=== PATIENT | female | born 1965 | race American Indian/Alaskan Native ===

== ENCOUNTER 2016-04-17 22:20 | Inpatient (IN) | payer OTHER ==
[2016-04-17] MEDS ORDERED: DUONEB 0.5 MG-3 MG/3 ML SOLN IH ONE ×2 (22:29→22:35)
[2016-04-18] MEDS ORDERED: TORADOL IV ONE (00:01)
[2016-04-18] MEDS ORDERED: ATROVENT IH ONE (00:02)
[2016-04-18] MEDS ORDERED: PROVENTIL IH ONE ×2 (00:02→01:52)
[2016-04-18] MEDS ORDERED: ZOFRAN IV ONE (00:02)
[2016-04-18 00:42] LABS: Basophils % (Auto) 0.6 % (0.0-1.8); Eosinophils % (Auto) 5.9 % (0.0-4.3); Hematocrit 44.4 % (30.3-42.9); Hemoglobin 14.5 gm/dl (10.1-14.3); Mean Corpuscular HGB Conc 33 % (30-34); Mean Corpuscular Hemoglobin 32 pg (28-32); Mean Corpuscular Volume 97 fl (79-97); Platelet Count 200 K/mm3 (140-440); Red Cell Distribution Width 13.9 % (13.2-15.2); White Blood Count 10.2 K/mm3 (4.5-11.0)
--- NOTE | 2016-04-18 00:44 | Emergency Department Report ---
ED Shortness of Breath HPI - General Chief Complaint: Adult Asthma Stated Complaint: SHORTNESS OF BREATH/CHEST PAIN Time Seen by Provider: 04/17/16 23:53 Source: patient Mode of arrival: Ambulatory Limitations: No Limitations - History of Present Illness Initial Comments: 50-year-old female with a past medical history asthma and hypertension presents to the hospital complains of coughing and wheezing episodes 1 week. Cough is nonproductive, left-sided sharp chest pain rated 6/10 in intensity with coughing episodes. Patient has no improvement with home nebs. She is intermittently compliant with her medication and ran out of her lisinopril and metformin 1 week ago. No reports of headache or blurred vision. No documented fever with patient states she's been feeling hot intermittently. She denies home oxygen use nurse reports that patient's room air saturation was in the high 80s. She did not receive a flu shot. - Related Data Previous Rx's Medication Instructions Recorded Last Taken Type traMADol [Ultram 50 MG tab] 50 mg PO Q6HR PRN #12 tablet 01/06/13 Unknown Rx predniSONE [Deltasone] 40 mg PO QDAY 4 Days 07/18/14 Unknown Rx ALBUTEROL NEB's [Proventil 0.083% 2.5 mg IH Q4HR #25 neb 02/20/16 Unknown Rx NEBS] Albuterol Sulfate [Ventolin HFA] 2 puff IH Q4H PRN #1 hfa.aer.ad 02/20/16 Unknown Rx Lisinopril [Zestril TAB] 20 mg PO QDAY #30 tablet 02/20/16 Unknown Rx Prednisone [predniSONE 10 mg 10 mg PO .TAPER #1 tab.ds.pk 02/20/16 Unknown Rx (6-Day Pack, 21 Tabs)] Allergies Allergy/AdvReac Type Severity Reaction Status Date / Time aspirin Allergy Unknown Verified 04/17/16 22:29 ED Review of Systems ROS: Stated complaint: SHORTNESS OF BREATH/CHEST PAIN Other details as noted in HPI Comment: All other systems reviewed and negative Other: Constitutional: As per HPI Eyes: No eye pain visual changes ENT: No ear pain or throat pain Neck: Denies pain Respiratory: As per HPI Cardiovascular: Denies palpitations, syncope GI: Denies abdominal pain, nausea, vomiting, diarrhea : Denies dysuria, urinary frequency, or urgency Musculoskeletal: Denies back pain, joint swelling Skin: Denies rash, lesions, erythema Neurologic: Denies headache, numbness, weakness Psychiatric: Denies suicidal ideation, hallucinations ED Past Medical Hx - Past Medical History Previous Medical History?: Yes Hx Hypertension: Yes Hx Diabetes: Yes Hx Asthma: Yes - Surgical History Past Surgical History?: Yes Additional Surgical History: "hernia" - Social History Smoking Status: Former Smoker Substance Use Type: Marijuana - Medications Home Medications: Home Medications Medication Instructions Recorded Confirmed Last Taken Type traMADol [Ultram 50 MG tab] 50 mg PO Q6HR PRN #12 tablet 01/06/13 Unknown Rx predniSONE [Deltasone] 40 mg PO QDAY 4 Days 07/18/14 Unknown Rx ALBUTEROL NEB's [Proventil 0.083% 2.5 mg IH Q4HR #25 neb 02/20/16 Unknown Rx NEBS] Albuterol Sulfate [Ventolin HFA] 2 puff IH Q4H PRN #1 hfa.aer.ad 02/20/16 Unknown Rx Lisinopril [Zestril TAB] 20 mg PO QDAY #30 tablet 02/20/16 Unknown Rx Prednisone [predniSONE 10 mg 10 mg PO .TAPER #1 tab.ds.pk 02/20/16 Unknown Rx (6-Day Pack, 21 Tabs)] ED Physical Exam - General Limitations: No Limitations - Other Other exam information: General: No limitations, patient is alert in no acute distress Head exam: Atraumatic, normocephalic Eyes exam: Normal appearance ENT: Moist mucous membrane Neck exam: Normal inspection, full range of motion, no meningismus nontender Respiratory exam: Expiratory wheezing, mild tachypnea Cardiovascular: Mild tachycardia regular rhythm Abdomen: Soft, nondistended, and nontender, with normal bowel sounds, no rebound, or guarding Extremity: Full range of motion normal inspection no deformity, no calf tenderness or edema Back: Normal Inspection, full range of motion, no tenderness Neurologic: Alert, oriented x3, cranial nerves intact, no motor or sensory deficit Psychiatric: normal affect, normal mood Skin: Warm, dry, intact ED Course Vital Signs 04/17/16 04/17/16 04/17/16 22:29 22:33 22:44 Temperature 97.9 F Pulse Rate 110 H Pulse Rate [ 101 H 98 H Posterior Bilateral Throughout] Respiratory 30 H Rate Respiratory 22 20 Rate [Posterior Bilateral Throughout] Blood Pressure 169/112 Blood Pressure [Left] O2 Sat by Pulse 88 96 Oximetry 04/18/16 04/18/16 04/18/16 00:04 00:18 00:30 Temperature Pulse Rate 90 85 Pulse Rate [ 91 H Posterior Bilateral Throughout] Respiratory 18 Rate Respiratory 18 Rate [Posterior Bilateral Throughout] Blood Pressure Blood Pressure 150/96 144/93 [Left] O2 Sat by Pulse 96 96 Oximetry 04/18/16 04/18/16 00:54 01:20 Temperature Pulse Rate Pulse Rate [ 86 Posterior Bilateral Throughout] Respiratory 14 Rate Respiratory 20 Rate [Posterior Bilateral Throughout] Blood Pressure Blood Pressure [Left] O2 Sat by Pulse 97 Oximetry - Reevaluation(s) Reevaluation #1: 04/18/16 01:46 Patient received a Duo neb prior to my evaluation with no improvement. She received additional nebs, Solu-Medrol with minimal improvement. Magnesium and azithromycin ordered. Patient will be admitted to the hospital. Blood pressure improved spontaneously without any intervention. Despite metformin noncompliance Accu-Chek is in normal range 04/18/16 01:47 04/18/16 01:48 ED Medical Decision Making - Lab Data Result diagrams: 04/18/16 00:17 04/18/16 00:17 Lab Results 04/18/16 04/18/16 04/18/16 Range/Units 00:15 00:17 00:17 WBC 10.2 (4.5-11.0) K/mm3 RBC 4.60 (3.65-5.03) M/mm3 Hgb 14.5 H (10.1-14.3) gm/dl Hct 44.4 H (30.3-42.9) % MCV 97 (79-97) fl MCH 32 (28-32) pg MCHC 33 (30-34) % RDW 13.9 (13.2-15.2) % Plt Count 200 (140-440) K/mm3 Lymph % (Auto) 28.2 (13.4-35.0) % [place] % (Auto) 8.6 H (0.0-7.3) % Eos % (Auto) 5.9 H (0.0-4.3) % Baso % (Auto) 0.6 (0.0-1.8) % Lymph # 2.9 (1.2-5.4) K/mm3 [place] # 0.9 H (0.0-0.8) K/mm3 Eos # 0.6 H (0.0-0.4) K/mm3 Baso # 0.1 (0.0-0.1) K/mm3 Seg Neutrophils % 56.7 (40.0-70.0) % Seg Neutrophils # 5.8 (1.8-7.7) K/mm3 Sodium 138 (137-145) mmol/L Potassium 4.4 (3.6-5.0) mmol/L Chloride 96.5 L (98-107) mmol/L Carbon Dioxide 26 (22-30) mmol/L Anion Gap 20 mmol/L BUN 12 (7-17) mg/dL Creatinine 0.7 (0.7-1.2) mg/dL Estimated GFR > 60 ml/min BUN/Creatinine Ratio 17.14 % Glucose 111 H (65-100) mg/dL POC Glucose 100 (70-105) Calcium 9.6 (8.4-10.2) mg/dL - EKG Data -: EKG Interpreted by Me (sinus 94 and nonspecific ) - EKG Data When compared to previous EKG there are: no significant change (compared to ) - Radiology Data Radiology results: image reviewed (chest x-ray: naf) - Medical Decision Making Plan to admit patient to the hospital for acute bronchitis, persistent wheezing , and mild hypoxia on room air - Differential Diagnosis pneumonia, bronchitis, viral syndrome, asthma, COPD Critical Care Time: No Critical care attestation.: If time is entered above; I have spent that time in minutes in the direct care of this critically ill patient, excluding procedure time. ED Disposition Clinical Impression: Acute bronchitis with asthma, Hypertension, Diabetes, Noncompliance with medication regimen Disposition: OP ADMITTED IP TO THIS HOSP Is pt being admited?: Yes Condition: Stable Instructions: Hypertension (ED), Diabetes Mellitus Type 2 in Adults (ED) Time of Disposition: 01:48 (Dr triana/hosp)
[2016-04-18 00:49] LABS: Anion Gap 20 mmol/L; BUN/Creatinine Ratio 17.14; Blood Urea Nitrogen 12 mg/dL (7-17); Calcium 9.6 mg/dL (8.4-10.2); Carbon Dioxide 26 mmol/L (22-30); Chloride 96.5 mmol/L (98-107); Glucose 111 mg/dL (65-100); Potassium 4.4 mmol/L (3.6-5.0); Sodium 138 mmol/L (137-145)
[2016-04-18] MEDS ORDERED: MAGNESIUM SULFATE 2GM/50ML 2 GM/50 ML BAG IV ONE (01:47)
[2016-04-18] MEDS ORDERED: ZITHROMAX 500 MG in NACL 0.9% 250ML 250 ML IV ONE (02:00)
--- NOTE | 2016-04-18 04:13 | History and Physical Report ---
History of Present Illness Date of examination: 04/18/16 Date of admission: 04/18/16 01:51 Chief complaint: Cough shortness of breath History of present illness: 50-year-old female with a long-standing history of asthma and chronic bronchitis presents this admission with a one-week history of nonproductive cough wheezing shortness of breath low-grade fever. Patient gives a history of mucus production from her naris and sinus pressure that has not yet resolved. At present patient denies any sick contacts denies any recent travel. Had attempted [id number] medications including sinus cold plus and Tylenol and did not respond to treatment. At present patient laying in bed in mild distress coughing. States that she has pleuritic chest pain from coughing and has had before. She denies any chest pain. Did have episode of gas pain which was under right breast does seem to resolve with passing gas. No new concerns at this time. Past History Past Medical History: denies: acute [place], atrial fib, anemia, arthritis, cancer, COPD, dialysis, ESRD Past Surgical History: No surgical history Social history: , lives with family, smoking, full code. denies: alcohol abuse, prescription drug abuse, IV drug use, AND/DNR-allow natural Family history: no significant family history Medications and Allergies Allergies Allergy/AdvReac Type Severity Reaction Status Date / Time aspirin Allergy Unknown Verified 04/17/16 22:29 Home Medications Medication Instructions Recorded Confirmed Last Taken Type Lisinopril [Zestril TAB] 20 mg PO QDAY #30 tablet 02/20/16 04/18/16 04/04/16 Rx Review of Systems Constitutional: fever, fatigue, weakness, no weight loss, no weight gain, no chills, no sweats, no night sweats, no anorexia, no malaise, no lethargy, no chronic headaches, no poor appetite, no daytime sleepiness Ears, nose, mouth and throat: nasal congestion, nasal discharge, sinus pressure , no ear pain, no tinnitis, no nose pain, no sinus pain, no epistaxis, no dental pain, no mouth pain, no hoarseness, no sore throat, no swelling in mouth , no swelling in throat, no voice changes, no headache, no pain front of neck, no neck fullness/pressure Breasts: deferred Cardiovascular: no chest pain, no palpitations, no rapid/irregular heart beat, no edema, no lightheadedness, no shortness of breath, no dyspnea on exertion, no claudication, no leg edema, no decreased exercise tolerance Respiratory: cough, cough with sputum, shortness of breath, dyspnea on exertion , congestion, wheezing, pleurisy, no hemoptysis, no pain, no pain on inspiration , no snoring, no sleep apnea, no respiratory infections, no home oxygen Gastrointestinal: no nausea, no vomiting, no constipation, no hematemesis, no melena, no hematochezia, no loss of appetite, no early satiety, no heartburn, no indigestion, no dyspepsia/bloating, no early satiety Genitourinary Female: no dyspareunia, no pelvic pain, no menorrhagia, no dysuria Menstruation: no currently menstrual Musculoskeletal: no shooting arm pain, no low back pain, no shooting leg pain, no leg numbness/tingling, no hot joints, no morning stiffness, no myalgias, no fractures, no loss of height, no arthritis Integumentary: no rash, no pruritis, no wounds, no jaundice, no growths, no lesions, no depigmentation, no striae, no hirsutism, no foot/leg ulcers Neurological: no head injury, no transient paralysis, no weakness, no parathesias, no tic, no motor disturbance, no sensory deficit, no double vision Psychiatric: no change in sleep habits, no sleep disturbances, no insomnia, no hypersomnia, no change in appetite, no change in libido, no suicidal ideation, no disorientation, no hallucinations, no depression, no anhedonia, no confusion , no irritability, no mood swings Endocrine: no cold intolerance, no heat intolerance, no polyphagia, no nocturia , no increase in ring/shoe/hat size, no proptosis Hematologic/Lymphatic: no easy bruising, no easy bleeding, no thrombophilia, no other Allergic/Immunologic: no allergic rhinitis, no persistent infections, no gluten intolerance, no seasonal allergies Exam - Constitutional Vitals: Temp Pulse Resp BP Pulse Ox 97.9 F 96 H 17 120/78 92 04/17/16 22:29 04/18/16 03:00 04/18/16 03:00 04/18/16 03:00 04/18/16 03:00 General appearance: Present: other - EENT Eyes: Present: PERRL (moderate distress), EOM intact ENT: hearing intact, clear oral mucosa - Neck Neck: Present: supple, normal ROM - Respiratory Respiratory: bilateral: diminished, rhonchi, wheezing - Cardiovascular Rhythm: regular Heart Sounds: Present: S1 & S2, gallop. Absent: systolic murmur, diastolic murmur - Extremities Extremities: pulses symmetrical, No edema, normal temperature, normal color, Full ROM Peripheral Pulses: within normal limits - Abdominal General gastrointestinal: Present: soft, non-tender, non-distended, normal bowel sounds - Integumentary Integumentary: Present: clear, warm, dry - Musculoskeletal Musculoskeletal: gait normal, strength equal bilaterally - Psychiatric Psychiatric: appropriate mood/affect, intact judgment & insight - Neurologic Neurologic: CNII-XII intact, moves all extremities Results - Labs CBC & Chem 7: 04/18/16 00:17 04/18/16 00:17 Labs: Laboratory Last Values WBC 10.2 K/mm3 (4.5-11.0) 04/18/16 00:17 RBC 4.60 M/mm3 (3.65-5.03) 04/18/16 00:17 Hgb 14.5 gm/dl (10.1-14.3) H 04/18/16 00:17 Hct 44.4 % (30.3-42.9) H 04/18/16 00:17 MCV 97 fl (79-97) 04/18/16 00:17 MCH 32 pg (28-32) 04/18/16 00:17 MCHC 33 % (30-34) 04/18/16 00:17 RDW 13.9 % (13.2-15.2) 04/18/16 00:17 Plt Count 200 K/mm3 (140-440) 04/18/16 00:17 Lymph % (Auto) 28.2 % (13.4-35.0) 04/18/16 00:17 [place] % (Auto) 8.6 % (0.0-7.3) H 04/18/16 00:17 Eos % (Auto) 5.9 % (0.0-4.3) H 04/18/16 00:17 Baso % (Auto) 0.6 % (0.0-1.8) 04/18/16 00:17 Lymph # 2.9 K/mm3 (1.2-5.4) 04/18/16 00:17 [place] # 0.9 K/mm3 (0.0-0.8) H 04/18/16 00:17 Eos # 0.6 K/mm3 (0.0-0.4) H 04/18/16 00:17 Baso # 0.1 K/mm3 (0.0-0.1) 04/18/16 00:17 Seg Neutrophils % 56.7 % (40.0-70.0) 04/18/16 00:17 Seg Neutrophils # 5.8 K/mm3 (1.8-7.7) 04/18/16 00:17 Sodium 138 mmol/L (137-145) 04/18/16 00:17 Potassium 4.4 mmol/L (3.6-5.0) 04/18/16 00:17 Chloride 96.5 mmol/L (98-107) L 04/18/16 00:17 Carbon Dioxide 26 mmol/L (22-30) 04/18/16 00:17 Anion Gap 20 mmol/L 04/18/16 00:17 BUN 12 mg/dL (7-17) 04/18/16 00:17 Creatinine 0.7 mg/dL (0.7-1.2) 04/18/16 00:17 Estimated GFR > 60 ml/min 04/18/16 00:17 BUN/Creatinine Ratio 17.14 % 04/18/16 00:17 Glucose 111 mg/dL (65-100) H 04/18/16 00:17 POC Glucose 100 (70-105) 04/18/16 00:15 Calcium 9.6 mg/dL (8.4-10.2) 04/18/16 00:17 - Imaging and Cardiology EKG: image reviewed Chest x-ray: image reviewed Assessment and Plan Advance Directives: Yes VTE prophylaxis?: Chemical Plan of care discussed with patient/family: Yes - Patient Problems (1) Acute bronchitis with asthma Current Visit: Yes Status: Acute Plan to address problem: She would acute bronchitis and asthma. At present we'll start patient on azithromycin IV. Blood culture data has been obtained. Would titrate medicines accordingly. We'll also provide DuoNeb's and oxygen and supportive care. We'll give low-dose Solu-Medrol at this time. Patient has diabetes. The benefits of Solu-Medrol out weighted risk of hypoglycemia at this particular time. (2) Diabetes Current Visit: Yes Status: Acute Qualifiers: Diabetes mellitus type: type 2 Diabetes mellitus complication status: D Diabetes mellitus complication detail: D Diabetic retinopathy severity: D Proliferative retinopathy type: P Diabetes mellitus macular edema: D Diabetes mellitus custodial insulin use: D Laterality: L Chronic kidney disease stage: C Plan to address problem: Patient at present does not have history of diabetes that she status. Patient is only on lisinopril at home but will follow with A1c and Accu-Chek's see if we need to treat it. This was only in her past history from the ER patient denies at this time. (3) Hypertension Current Visit: Yes Status: Acute Qualifiers: Hypertension type: H Plan to address problem: Hypertension treated with lisinopril we'll continue current lisinopril. Blood pressure seems to be stable well-controlled. (4) Noncompliance with medication regimen Current Visit: Yes Status: Acute Plan to address problem: Patient is been educated on the compliance of medication especially with asthma medication.
[2016-04-18] MEDS ORDERED: MORPHINE IV PRN (04:18)
[2016-04-18] MEDS ORDERED: DULCOLAX PR PRN (04:18)
[2016-04-18] MEDS ORDERED: PERCOCET 5/325 PO PRN (04:18)
[2016-04-18] MEDS ORDERED: MILK OF MAGNESIA PO PRN (04:18)
[2016-04-18] MEDS ORDERED: AMBIEN PO PRN (04:18)
[2016-04-18] MEDS ORDERED: TYLENOL PO PRN (04:18)
[2016-04-18] MEDS ORDERED: ZOFRAN IV PRN (04:18)
[2016-04-18] MEDS: NACL 0.9% 1000 ML 1,000 ML IV SCH (05:13)
--- NOTE | 2016-04-18 07:18 | XRay Report ---
CHEST 2 VIEWS INDICATION: Chest pain, shortness of breath. COMPARISON: 07/18/2014. FINDINGS: PA and lateral chest radiographs demonstrate normal cardiomediastinal silhouette. Slight fluid or thickening along the fissures. Minimal left lower lung scarring not excluded. Otherwise clear lungs. Intact bones. CONCLUSION: No acute disease in the chest. Thank you for the opportunity to participate in this patient's care.
--- NOTE | 2016-04-18 08:44 | Admit Criteria Form ---
Admission Criteria Documentation: ASTHMA Clinical Indications for Admission to Inpatient Care (Place 'X' for any and all applicable criteria): Admission is indicated for ANY ONE of the following (1)(2)(3)(4)(5): [ ]I. Absent or markedly diminished breath sounds (silent chest) [ ]II. Oxygen saturation < 92% [ ]III. PaCO2 = / > 42 mm Hg (5.6 kPa) [ ]IV. Peak expiratory flow rate < 40% of predicted or personal best after treatment. [ ]V. Peak expiratory flow rate < 33% of predicted or personal before after treatment [ ]. Change in mental status [ ]VII. Ventilatory support required [ ]VIII. PaO2 < 60 mm Hg (8.0 kPa) [ ]IX. Cyanosis [ ]X. Cardiac dysrhythmia (e.g., bradycardia) [ ]XI. Hemodynamic instability [ ]XII. Radiographic evidence of complication requiring inpatient treatment (e.g., pneumonia, pneumothorax) [X ]XIII. Inpatient admission required rather than observation care (also use Asthma: Observation Care guideline as appropriate) because of ANY ONE of the following: [X ]a) Respiratory finding that is severe or persistent (eg, dyspnea, tachypnea, accessory muscle use) [ ]b) Airflow measurements less than 60% of predicted or personal best that persist (e.g., over 24 hours) or worsen despite treatments [ ]c) Supplemental oxygen or respiratory treatments for over 24 hours that are performable only in acute inpatient setting []d) Other condition, treatment or monitoring requiring inpatient admission. Extended stay beyond goal length of stay may be needed for (26)(27)(28): [ ]a) Severe respiratory failure (23) (29) (30) [ ]b) Secondary causes and complications (25) [ ]c) Status asthmaticus [ ]d) Chronic obstructive asthma [ ]e) Older patients (29) [ ]f) Slow resolution [ ]g) Clinically significant exacerbation of comorbidities (eg, remedios. heart failure, atrial fibrillation) The original [employer] content created by [employer] has been revised. The portions of the content which have been revised are identified through the use of italic text or in bold, and [employer] has neither reviewed nor approved the modified material. All other unmodified content is copyright [employer] Please see references footnoted in the original [facility] edition 2016 Admission Criteria Met: Yes
[2016-04-18] MEDS: LOVENOX SUB-Q SCH (09:41)
[2016-04-18] MEDS: PEPCID IV SCH ×2 (09:41→21:26)
[2016-04-18] MEDS: BROVANA NEBU IH SCH ×2 (13:01→20:10)
[2016-04-18] MEDS: PULMICORT IH SCH ×2 (13:01→20:08)
[2016-04-18] MEDS: DUONEB 0.5 MG-3 MG/3 ML SOLN IH SCH ×2 (14:15→20:08)
[2016-04-18] MEDS: ZESTRIL PO SCH (14:16)
--- NOTE | 2016-04-18 14:49 | Event Note ---
Date: 04/18/16 Patient seen and examined this morning still with wheezing bilateral expiratory greater than inspiratory. Still short of breath with mild ambulation. Continue current therapy wean oxygen as tolerated. X-ray reviewed and negative. Despite discharge in a.m. plan of care discussed with them.
[2016-04-18] MEDS: ZITHROMAX 500 MG in NACL 0.9% 250ML 250 ML IV SCH (18:19)
[2016-04-19] MEDS: DUONEB 0.5 MG-3 MG/3 ML SOLN IH SCH ×4 (01:55→20:23)
[2016-04-19 04:00] LABS: Anion Gap 18 mmol/L; Blood Urea Nitrogen 18 mg/dL (7-17); Calcium 8.6 mg/dL (8.4-10.2); Carbon Dioxide 24 mmol/L (22-30); Chloride 105.3 mmol/L (98-107); Glucose 125 mg/dL (65-100); Potassium 4.8 mmol/L (3.6-5.0); Sodium 142 mmol/L (137-145)
[2016-04-19] MEDS: NACL 0.9% 1000 ML 1,000 ML IV SCH (05:57)
[2016-04-19] MEDS: PULMICORT IH SCH ×2 (08:04→20:23)
[2016-04-19] MEDS: BROVANA NEBU IH SCH ×2 (08:04→20:31)
[2016-04-19] MEDS: LOVENOX SUB-Q SCH (11:07)
[2016-04-19] MEDS: PEPCID IV SCH (11:07)
[2016-04-19] MEDS: ZESTRIL PO SCH (11:08)
[2016-04-19] MEDS: PEPCID PO SCH ×2 (11:56→21:03)
[2016-04-19] MEDS: ZITHROMAX 500 MG in NACL 0.9% 250ML 250 ML IV SCH (14:09)
--- NOTE | 2016-04-19 16:08 | Progress Note ---
Assessment and Plan Assessment and plan: (1) Acute bronchitis with asthma Current Visit: Yes Status: Acute Plan to address problem: She would acute bronchitis and asthma. At present we'll start patient on azithromycin IV. Blood culture data has been obtained. Would titrate medicines accordingly. We'll also provide DuoNeb's and oxygen and supportive care. We'll give low-dose Solu-Medrol at this time. Patient has diabetes. The benefits of Solu-Medrol out weighted risk of hypoglycemia at this particular time. (2) Diabetes Current Visit: Yes Status: Acute Qualifiers: Diabetes mellitus type: type 2 Diabetes mellitus complication status: D Diabetes mellitus complication detail: D Diabetic retinopathy severity: D Proliferative retinopathy type: P Diabetes mellitus macular edema: D Diabetes mellitus meterman insulin use: D Laterality: L Chronic kidney disease stage: C Plan to address problem: Patient at present does not have history of diabetes that she status. Patient is only on lisinopril at home but will follow with A1c and Accu-Chek's see if we need to treat it. This was only in her past history from the ER patient denies at this time. (3) Hypertension Current Visit: Yes Status: Acute Qualifiers: Hypertension type: H Plan to address problem: Hypertension treated with lisinopril we'll continue current lisinopril. Blood pressure seems to be stable well-controlled. (4) Noncompliance with medication regimen Current Visit: Yes Status: Acute Plan to address problem: Patient is been educated on the compliance of medication especially with asthma medication. Hospitalist Physical - Constitutional Vitals: Temp Pulse Resp BP Pulse Ox 98.3 F 85 18 146/88 97 04/19/16 15:55 04/19/16 15:55 04/19/16 15:55 04/19/16 15:55 04/19/16 15:55 General appearance: Present: other Results - Labs CBC & Chem 7: 04/18/16 00:17 04/19/16 03:01 Labs: Laboratory Last Values WBC 10.2 K/mm3 (4.5-11.0) 04/18/16 00:17 RBC 4.60 M/mm3 (3.65-5.03) 04/18/16 00:17 Hgb 14.5 gm/dl (10.1-14.3) H 04/18/16 00:17 Hct 44.4 % (30.3-42.9) H 04/18/16 00:17 MCV 97 fl (79-97) 04/18/16 00:17 MCH 32 pg (28-32) 04/18/16 00:17 MCHC 33 % (30-34) 04/18/16 00:17 RDW 13.9 % (13.2-15.2) 04/18/16 00:17 Plt Count 200 K/mm3 (140-440) 04/18/16 00:17 Lymph % (Auto) 28.2 % (13.4-35.0) 04/18/16 00:17 [place] % (Auto) 8.6 % (0.0-7.3) H 04/18/16 00:17 Eos % (Auto) 5.9 % (0.0-4.3) H 04/18/16 00:17 Baso % (Auto) 0.6 % (0.0-1.8) 04/18/16 00:17 Lymph # 2.9 K/mm3 (1.2-5.4) 04/18/16 00:17 [place] # 0.9 K/mm3 (0.0-0.8) H 04/18/16 00:17 Eos # 0.6 K/mm3 (0.0-0.4) H 04/18/16 00:17 Baso # 0.1 K/mm3 (0.0-0.1) 04/18/16 00:17 Seg Neutrophils % 56.7 % (40.0-70.0) 04/18/16 00:17 Seg Neutrophils # 5.8 K/mm3 (1.8-7.7) 04/18/16 00:17 Sodium 142 mmol/L (137-145) 04/19/16 03:01 Potassium 4.8 mmol/L (3.6-5.0) 04/19/16 03:01 Chloride 105.3 mmol/L (98-107) 04/19/16 03:01 Carbon Dioxide 24 mmol/L (22-30) 04/19/16 03:01 Anion Gap 18 mmol/L 04/19/16 03:01 BUN 18 mg/dL (7-17) H 04/19/16 03:01 Creatinine 0.8 mg/dL (0.7-1.2) 04/19/16 03:01 Estimated GFR > 60 ml/min 04/19/16 03:01 BUN/Creatinine Ratio 22.50 % 04/19/16 03:01 Glucose 125 mg/dL (65-100) H 04/19/16 03:01 POC Glucose 127 (70-105) H 04/19/16 07:42 Calcium 8.6 mg/dL (8.4-10.2) 04/19/16 03:01
[2016-04-19] MEDS: APRESOLINE IV PRN (21:03)
[2016-04-20] MEDS: DUONEB 0.5 MG-3 MG/3 ML SOLN IH SCH ×4 (02:49→21:09)
[2016-04-20] MEDS: NACL 0.9% 1000 ML 1,000 ML IV SCH ×2 (06:25→22:13)
[2016-04-20] MEDS: PULMICORT IH SCH ×2 (07:40→21:10)
[2016-04-20] MEDS: BROVANA NEBU IH SCH ×2 (07:40→21:15)
[2016-04-20] MEDS: ZITHROMAX 500 MG in NACL 0.9% 250ML 250 ML IV SCH (10:11)
[2016-04-20] MEDS: PEPCID PO SCH ×2 (10:11→22:08)
[2016-04-20] MEDS: ZESTRIL PO SCH (10:11)
[2016-04-20] MEDS: LOVENOX SUB-Q SCH (10:11)
[2016-04-20] MEDS: APRESOLINE IV PRN (12:17)
[2016-04-20] MEDS: NORVASC PO SCH (14:38)
[2016-04-20] MEDS: HCTZ PO SCH (14:38)
[2016-04-20] MEDS ORDERED: ZESTRIL PO SCH (22:00)
[2016-04-21] MEDS: DUONEB 0.5 MG-3 MG/3 ML SOLN IH SCH ×2 (02:53→09:24)
[2016-04-21] MEDS: BROVANA NEBU IH SCH (09:23)
[2016-04-21] MEDS: PULMICORT IH SCH (09:23)
[2016-04-21] MEDS: LOVENOX SUB-Q SCH (10:33)
[2016-04-21] MEDS: ZITHROMAX 500 MG in NACL 0.9% 250ML 250 ML IV SCH (10:40)
[2016-04-21] MEDS: NACL 0.9% 1000 ML 1,000 ML IV SCH (10:40)
[2016-04-21] MEDS: ZESTRIL PO SCH (10:41)
[2016-04-21] MEDS: NORVASC PO SCH (10:41)
[2016-04-21] MEDS: HCTZ PO SCH (10:41)
[2016-04-21] MEDS: PEPCID PO SCH (10:41)
--- NOTE | 2016-04-21 10:46 | Progress Note ---
Hospitalist Physical - Constitutional Vitals: Temp Pulse Resp BP Pulse Ox 97.7 F 75 20 164/88 99 04/21/16 08:34 04/21/16 10:41 04/21/16 09:54 04/21/16 10:41 04/21/16 09:20 General appearance: Present: other Results - Labs CBC & Chem 7: 04/18/16 00:17 04/19/16 03:01 Labs: Laboratory Last Values WBC 10.2 K/mm3 (4.5-11.0) 04/18/16 00:17 RBC 4.60 M/mm3 (3.65-5.03) 04/18/16 00:17 Hgb 14.5 gm/dl (10.1-14.3) H 04/18/16 00:17 Hct 44.4 % (30.3-42.9) H 04/18/16 00:17 MCV 97 fl (79-97) 04/18/16 00:17 MCH 32 pg (28-32) 04/18/16 00:17 MCHC 33 % (30-34) 04/18/16 00:17 RDW 13.9 % (13.2-15.2) 04/18/16 00:17 Plt Count 200 K/mm3 (140-440) 04/18/16 00:17 Lymph % (Auto) 28.2 % (13.4-35.0) 04/18/16 00:17 [place] % (Auto) 8.6 % (0.0-7.3) H 04/18/16 00:17 Eos % (Auto) 5.9 % (0.0-4.3) H 04/18/16 00:17 Baso % (Auto) 0.6 % (0.0-1.8) 04/18/16 00:17 Lymph # 2.9 K/mm3 (1.2-5.4) 04/18/16 00:17 [place] # 0.9 K/mm3 (0.0-0.8) H 04/18/16 00:17 Eos # 0.6 K/mm3 (0.0-0.4) H 04/18/16 00:17 Baso # 0.1 K/mm3 (0.0-0.1) 04/18/16 00:17 Seg Neutrophils % 56.7 % (40.0-70.0) 04/18/16 00:17 Seg Neutrophils # 5.8 K/mm3 (1.8-7.7) 04/18/16 00:17 Sodium 142 mmol/L (137-145) 04/19/16 03:01 Potassium 4.8 mmol/L (3.6-5.0) 04/19/16 03:01 Chloride 105.3 mmol/L (98-107) 04/19/16 03:01 Carbon Dioxide 24 mmol/L (22-30) 04/19/16 03:01 Anion Gap 18 mmol/L 04/19/16 03:01 BUN 18 mg/dL (7-17) H 04/19/16 03:01 Creatinine 0.8 mg/dL (0.7-1.2) 04/19/16 03:01 Estimated GFR > 60 ml/min 04/19/16 03:01 BUN/Creatinine Ratio 22.50 % 04/19/16 03:01 Glucose 125 mg/dL (65-100) H 04/19/16 03:01 POC Glucose 156 (70-105) H 04/21/16 08:10 Calcium 8.6 mg/dL (8.4-10.2) 04/19/16 03:01
--- NOTE | 2016-04-21 10:57 | Discharge Summary ---
Providers - Providers Date of Admission: 04/18/16 01:51 Attending physician: NAVARRO LEW MD Primary care physician: BULLION WEIGHER Hospitalization Condition: Stable Disposition: DISCHARGED TO HOME OR SELFCARE Time spent for discharge: 35 minutes Core Measure Documentation - Palliative Care Palliative Care/ Comfort Measures: Not Applicable - Core Measures Any of the following diagnoses?: none Exam - Constitutional Vitals: Temp Pulse Resp BP Pulse Ox 97.7 F 75 20 164/88 99 04/21/16 08:34 04/21/16 10:41 04/21/16 09:54 04/21/16 10:41 04/21/16 09:20 General appearance: Present: no acute distress, well-nourished - EENT Eyes: Present: PERRL ENT: hearing intact, clear oral mucosa - Neck Neck: Present: supple, normal ROM - Respiratory Respiratory effort: normal Respiratory: bilateral: CTA - Cardiovascular Heart Sounds: Present: S1 & S2. Absent: rub, click - Extremities Extremities: pulses symmetrical, No edema Peripheral Pulses: within normal limits - Abdominal General gastrointestinal: Present: soft, non-tender, non-distended, normal bowel sounds Female genitourinary: Present: normal - Integumentary Integumentary: Present: clear, warm, dry - Musculoskeletal Musculoskeletal: gait normal, strength equal bilaterally - Psychiatric Psychiatric: appropriate mood/affect, intact judgment & insight - Neurologic Neurologic: CNII-XII intact, moves all extremities Plan Prescriptions: ALBUTEROL Inhaler [ProAir HFA Inhaler] 2 puff IH QID PRN #1 inhalation PRN Reason: Shortness Of Breath amLODIPine [Norvasc] 10 mg PO QDAY #30 tablet Azithromycin [Zithromax INJ] 500 mg IV Q24HR #3 vial Hydrochlorothiazide [HCTZ] 25 mg PO QDAY #30 tablet Lisinopril [Zestril TAB] 40 mg PO QDAY #30 tablet oxyCODONE /ACETAMINOPHEN [Percocet 5/325 mg] 1 tab PO Q6H PRN #30 tablet PRN Reason: Pain, Moderate (4-6) Prednisone [predniSONE 5 mg (6-Day Pack, 21 Tabs)] 5 mg PO .TAPER #1 tab.ds.pk Tiotropium [place] [Spiriva Respimat] 4 gm IH DAILY #1 mist.inhal
[2016-04-21 16:47] VITALS: BP 116/77
== END 2016-04-21 13:18 | disposition home or self-care (01) | DRG 203 ==
LOC: ED 22:20 → 4A 04-18 01:51
PROVIDERS: ADMIT Internal Medicine; ATTEND Internal Medicine
DX: J20.9 Acute bronchitis, unspecified (principal); E11.9 Type 2 diabetes mellitus without complications; I10 Essential (primary) hypertension; J42 Unspecified chronic bronchitis; F17.210 Nicotine dependence, cigarettes, uncomplicated; J45.909 Unspecified asthma, uncomplicated; Z88.8 Allergy status to other drugs, medicaments and biological substances; Z91.14 Patient's other noncompliance with medication regimen
CPT/HCPCS: 36415; 71020; 80048; 82962; 85025; 93005; 93010; 94640; 94760; 96365; 96368; 96375; J0360; J0456; J1650; J1885; J2405; J2920; J2930; J3475; J7030; J7050

== ENCOUNTER 2016-05-13 21:12 | Inpatient (IN) | payer SELFPAY ==
[2016-05-13] MEDS ORDERED: NARCAN 2 MG/2 ML ONE (21:14)
[2016-05-13] MEDS ORDERED: PROVENTIL IH ONE (21:30)
[2016-05-13] MEDS ORDERED: ATROVENT IH ONE (21:30)
[2016-05-13] MEDS ORDERED: AMIDATE IV ONE (21:30)
[2016-05-13] MEDS ORDERED: QUELICIN IV ONE (21:30)
[2016-05-13] MEDS ORDERED: NARCAN 2 MG/2 ML IV ONE (21:30)
--- NOTE | 2016-05-13 21:30 | Emergency Department Report ---
ED Shortness of Breath HPI - General Chief Complaint: Dyspnea/Respdistress Stated Complaint: RESPIRATORY DISTRESS Time Seen by Provider: 05/13/16 21:27 Source: EMS Mode of arrival: Stretcher Limitations: Altered Mental Status - History of Present Illness Initial Comments: 50 yo female the past medical history of COPD, hypertension, and non-insulin- dependent diabetes presents to the hospital with shortness of breath and altered mental status. EMS reports that at the scene states the patient was short of breath and has used multiple albuterol inhaler treatments at the scene. Patient was unresponsive upon their arrival requiring bag valve mask ventilations a nasal trumpet in route. Over the history present illness available at this time. Accu-Chek 132. - Related Data Previous Rx's Medication Instructions Recorded Last Taken Type ALBUTEROL Inhaler [ProAir HFA 2 puff IH QID PRN #1 inhalation 04/21/16 Unknown Rx Inhaler] Azithromycin [Zithromax TAB] 250 mg PO QDAY #3 tablet 04/21/16 Unknown Rx Hydrochlorothiazide [HCTZ] 25 mg PO QDAY #30 tablet 04/21/16 Unknown Rx Lisinopril [Zestril TAB] 40 mg PO QDAY #30 tablet 04/21/16 Unknown Rx Prednisone [predniSONE 5 mg (6-Day 5 mg PO .TAPER #1 tab.ds.pk 04/21/16 Unknown Rx Pack, 21 Tabs)] Tiotropium [place] [Spiriva 4 gm IH DAILY #1 mist.inhal 04/21/16 Unknown Rx Respimat] amLODIPine [Norvasc] 10 mg PO QDAY #30 tablet 04/21/16 Unknown Rx oxyCODONE /ACETAMINOPHEN [Percocet 1 tab PO Q6H PRN #30 tablet 04/21/16 Unknown Rx 5/325 mg] Allergies Allergy/AdvReac Type Severity Reaction Status Date / Time aspirin Allergy Unknown Verified 04/17/16 22:29 ED Review of Systems ROS: Stated complaint: RESPIRATORY DISTRESS Other details as noted in HPI Comment: Unobtainable due to pts medical conditions (unresponsive) ED Past Medical Hx - Past Medical History Previous Medical History?: Yes Hx Hypertension: Yes Hx Congestive Heart Failure: No Hx Diabetes: Yes Hx Asthma: Yes Hx COPD: No - Surgical History Past Surgical History?: Yes Additional Surgical History: "hernia" - Social History Smoking Status: Former Smoker - Medications Home Medications: Home Medications Medication Instructions Recorded Confirmed Last Taken Type ALBUTEROL Inhaler [ProAir HFA 2 puff IH QID PRN #1 inhalation 04/21/16 Unknown Rx Inhaler] Azithromycin [Zithromax TAB] 250 mg PO QDAY #3 tablet 04/21/16 Unknown Rx Hydrochlorothiazide [HCTZ] 25 mg PO QDAY #30 tablet 04/21/16 Unknown Rx Lisinopril [Zestril TAB] 40 mg PO QDAY #30 tablet 04/21/16 Unknown Rx Prednisone [predniSONE 5 mg (6-Day 5 mg PO .TAPER #1 tab.ds.pk 04/21/16 Unknown Rx Pack, 21 Tabs)] Tiotropium [place] [Spiriva 4 gm IH DAILY #1 mist.inhal 04/21/16 Unknown Rx Respimat] amLODIPine [Norvasc] 10 mg PO QDAY #30 tablet 04/21/16 Unknown Rx oxyCODONE /ACETAMINOPHEN [Percocet 1 tab PO Q6H PRN #30 tablet 04/21/16 Unknown Rx 5/325 mg] ED Physical Exam - General Limitations: Altered Mental Status - Other Other exam information: General: No limitations, patient is alert in no acute distress Head exam: Atraumatic, normocephalic Eyes exam: Normal appearance, pupils equal reactive to light ENT: Moist mucous membrane, normal oropharynx Neck exam: Normal inspection, full range of motion Respiratory exam: Bilateral expiratory wheezing with decreased respiration rate Cardiovascular: Normal rate and rhythm, normal heart sounds Abdomen: Soft, nondistended, and nontender, with normal bowel sounds, no rebound, or guarding Extremity: Full range of motion normal inspection no deformity Back: Normal Inspection, full range of motion, no tenderness Neurologic: Unresponsive, minimum spontaneous movement, will not open her eyes or follow commands Psychiatric: normal affect, normal mood Skin: Warm, dry, intact ED Course Vital Signs 05/13/16 05/13/16 05/13/16 21:15 21:29 21:30 Pulse Rate 98 H 90 91 H Pulse Rate [ Anterior Bilateral Throughout] Respiratory Rate Respiratory Rate [Anterior Bilateral Throughout] Blood Pressure Blood Pressure 177/104 192/127 [Right] O2 Sat by Pulse 100 100 Oximetry 05/13/16 05/13/16 05/13/16 21:35 21:40 21:45 Pulse Rate 93 H 102 H Pulse Rate [ Anterior Bilateral Throughout] Respiratory 27 H Rate Respiratory Rate [Anterior Bilateral Throughout] Blood Pressure 128/86 Blood Pressure 163/77 [Right] O2 Sat by Pulse 100 100 Oximetry 05/13/16 05/13/16 05/13/16 22:08 22:16 22:23 Pulse Rate 100 H Pulse Rate [ 104 H Anterior Bilateral Throughout] Respiratory 34 H 26 H Rate Respiratory 27 H Rate [Anterior Bilateral Throughout] Blood Pressure 128/86 Blood Pressure [Right] O2 Sat by Pulse 96 Oximetry 05/13/16 05/13/16 05/13/16 22:30 22:46 23:00 Pulse Rate 102 H 103 H 98 H Pulse Rate [ Anterior Bilateral Throughout] Respiratory 21 20 23 Rate Respiratory Rate [Anterior Bilateral Throughout] Blood Pressure 128/86 87/57 120/85 Blood Pressure [Right] O2 Sat by Pulse 90 81 L 97 Oximetry 05/13/16 05/13/16 05/13/16 23:15 23:21 23:30 Pulse Rate 99 H 93 H Pulse Rate [ 94 H Anterior Bilateral Throughout] Respiratory 19 19 Rate Respiratory 21 Rate [Anterior Bilateral Throughout] Blood Pressure 130/89 123/87 Blood Pressure [Right] O2 Sat by Pulse 97 98 Oximetry 05/13/16 05/13/16 05/13/16 23:35 23:40 23:45 Pulse Rate 97 H 95 H 99 H Pulse Rate [ Anterior Bilateral Throughout] Respiratory 19 17 Rate Respiratory Rate [Anterior Bilateral Throughout] Blood Pressure 145/100 145/100 144/92 Blood Pressure [Right] O2 Sat by Pulse 99 99 100 Oximetry 05/14/16 05/14/16 05/14/16 00:00 00:09 00:11 Pulse Rate 93 H 93 H Pulse Rate [ Anterior Bilateral Throughout] Respiratory 20 20 27 H Rate Respiratory Rate [Anterior Bilateral Throughout] Blood Pressure 151/95 137/86 Blood Pressure [Right] O2 Sat by Pulse 100 98 Oximetry 05/14/16 05/14/16 05/14/16 00:15 00:30 00:45 Pulse Rate 94 H 93 H 94 H Pulse Rate [ Anterior Bilateral Throughout] Respiratory 22 20 20 Rate Respiratory Rate [Anterior Bilateral Throughout] Blood Pressure 135/93 131/86 136/89 Blood Pressure [Right] O2 Sat by Pulse 98 98 100 Oximetry 05/14/16 01:00 Pulse Rate 94 H Pulse Rate [ Anterior Bilateral Throughout] Respiratory 20 Rate Respiratory Rate [Anterior Bilateral Throughout] Blood Pressure 124/81 Blood Pressure [Right] O2 Sat by Pulse 98 Oximetry - Reevaluation(s) Reevaluation #1: 05/13/16 21:40 Patient intubated upon arrival due to poor mental status requiring bag valve mask assisted ventilations - ABG Interpretation Ph: 7.18 PCO2: 66.8 PO2: 455 Bicarbonate: 25.4 Interpretation: respiratory acidosis - Intubation Time Out Performed: Yes Sedative: Etomidate Mg Given: 20 Paralytic: Succinylcholine Mg Given: 100 Laryngoscope: Yancy Size: 3 ET Tube Size: 7.5 Tube Secured Depth (cm): 21 Tube Secured Location: lips Tube Placement Confirmation: visualized tube passing t, equal breath sounds bilat, no breath sounds over epi, confirmation by capnometr Patient Tolerated Procedure: well Intubation Complications: none ED Medical Decision Making - Lab Data Result diagrams: 05/13/16 21:25 05/13/16 21:25 Lab Results 05/13/16 05/13/16 05/13/16 Range/Units 21:25 21:25 21:25 WBC 10.8 (4.5-11.0) K/mm3 RBC 4.17 (3.65-5.03) M/mm3 Hgb 13.4 (10.1-14.3) gm/dl Hct 42.0 (30.3-42.9) % MCV 101 H (79-97) fl MCH 32 (28-32) pg MCHC 32 (30-34) % RDW 14.1 (13.2-15.2) % Plt Count 203 (140-440) K/mm3 Lymph % (Auto) Student Affairs Vice President Lymph # Student Affairs Vice President Add Manual Diff Complete Total Counted 100 Seg Neutrophils % Student Affairs Vice President Seg Neuts % (Manual) 33.0 L (40.0-70.0) % Band Neutrophils % 1.0 % Lymphocytes % (Manual) 57.0 H (13.4-35.0) % Reactive Lymphs % (Man) 0 % Monocytes % (Manual) 6.0 (0.0-7.3) % Eosinophils % (Manual) 2.0 (0.0-4.3) % Basophils % (Manual) 1.0 (0.0-1.8) % Metamyelocytes % 0 % Myelocytes % 0 % Promyelocytes % 0 % Blast Cells % 0 % Nucleated RBC % Not Reportable Seg Neutrophils # Man 3.6 (1.8-7.7) K/mm3 Band Neutrophils # 0.1 K/mm3 Lymphocytes # (Manual) 6.2 H (1.2-5.4) K/mm3 Abs React Lymphs (Man) 0.0 K/mm3 Monocytes # (Manual) 0.6 (0.0-0.8) K/mm3 Eosinophils # (Manual) 0.2 (0.0-0.4) K/mm3 Basophils # (Manual) 0.1 (0.0-0.1) K/mm3 Metamyelocytes # 0.0 K/mm3 Myelocytes # 0.0 K/mm3 Promyelocytes # 0.0 K/mm3 Blast Cells # 0.0 K/mm3 WBC Morphology Not Reportable Hypersegmented Neuts Not Reportable Hyposegmented Neuts Not Reportable Hypogranular Neuts Not Reportable Smudge Cells Not Reportable Toxic Granulation Not Reportable Toxic Vacuolation Not Reportable Dohle Bodies Not Reportable Pelger-Huet Anomaly Not Reportable Michell Rods Not Reportable Platelet Estimate Consistent w auto Clumped Platelets Not Reportable Plt Clumps, EDTA Not Reportable Large Platelets Not Reportable Giant Platelets Not Reportable Platelet Satelliting Not Reportable Plt Morphology Comment Not Reportable RBC Morphology Not Reportable Dimorphic RBCs Not Reportable Polychromasia Not Reportable Hypochromasia Not Reportable Poikilocytosis 1+ Anisocytosis Not Reportable Microcytosis Not Reportable Macrocytosis 1+ Spherocytes Not Reportable Pappenheimer Bodies Not Reportable Sickle Cells Not Reportable Target Cells Not Reportable Tear Drop Cells Not Reportable Ovalocytes Not Reportable Helmet Cells Not Reportable [place] Bodies Not Reportable [place] Rings Not Reportable Ward Cells Not Reportable Bite Cells Not Reportable Crenated Cell Not Reportable Elliptocytes Not Reportable Acanthocytes (Spur) Not Reportable Rouleaux Not Reportable Hemoglobin C Crystals Not Reportable Schistocytes Not Reportable Malaria parasites Not Reportable [place] Bodies Not Reportable Hem Pathologist Commnt No D-Dimer 237.39 H (0-234) ng/mlDDU Sodium 139 (137-145) mmol/L Potassium 4.7 (3.6-5.0) mmol/L Chloride 96.4 L (98-107) mmol/L Carbon Dioxide 19 L (22-30) mmol/L Anion Gap 28 mmol/L BUN 19 H (7-17) mg/dL Creatinine 1.4 H (0.7-1.2) mg/dL Estimated GFR 48 ml/min BUN/Creatinine Ratio 13.57 % Glucose 273 H (65-100) mg/dL Calcium 9.0 (8.4-10.2) mg/dL Total Bilirubin 0.4 (0.1-1.2) mg/dL AST 31 (5-40) units/L ALT 25 (7-56) units/L Alkaline Phosphatase 78 (35-129) units/L Total Creatine Kinase 339 H (30-135) units/L CK-MB (CK-2) 2.8 (0.0-4.0) ng/mL CK-MB (CK-2) Rel Index 0.8 (0-4) Troponin T < 0.010 (0.00-0.029) ng/mL Total Protein 7.5 (6.3-8.2) g/dL Albumin 4.1 (3.9-5) g/dL Albumin/Globulin Ratio 1.2 % - EKG Data -: EKG Interpreted by Me (nsr, prolonged qt, rate 97) - Radiology Data Radiology results: report reviewed (ct head: naf), image reviewed (cxr: et tube good position, no infiltrate) - Medical Decision Making Patient required admission to the hospital due to CO2 retention ABG reveals CO2 retention with a pH 7.1. Respiratory rate adjusted from [address] head ordered due to the altered mental status howver, after intubation patient was fighting and moving all extremities requiring additional sedation. Initially propofol was started but patient became hypotensive. Patient then received Ativan boluses and sedation switched to Versed. Magnesium Solu-Medrol given prior to arrival. - Differential Diagnosis asthma, PE, intracranial hemorrhage, CO2 narcosis, CA, pneumothorax Critical Care Time: Yes Critical care time in (mins) excluding proc time.: 35 (reassessment in multiple boluses of sedating medication) Critical care attestation.: If time is entered above; I have spent that time in minutes in the direct care of this critically ill patient, excluding procedure time. ED Disposition Clinical Impression: Altered mental status, CO2 retention, COPD exacerbation, Endotracheally intubated, Diabetes, Hypertension Disposition: OP ADMITTED IP TO THIS HOSP Is pt being admited?: Yes Condition: Stable Time of Disposition: 23:14 (Dr tee/hosp)
[2016-05-13] MEDS ORDERED: DIPRIVAN 10 MG/ML 1,000 MG/100 ML BOTTLE IV ONE (21:33)
[2016-05-13] MEDS ORDERED: ARTIFICIAL TEARS OPHTH OINT OU PRN (21:34)
[2016-05-13] MEDS ORDERED: VASELINE LIP THERAPY TP PRN (21:34)
[2016-05-13] MEDS: DIPRIVAN 10 MG/ML 1,000 MG/100 ML BOTTLE IV SCH (21:40)
[2016-05-13] MEDS ORDERED: ATIVAN ONE (21:44)
[2016-05-13] MEDS ORDERED: ATIVAN IV ONE ×2 (21:48→23:16)
[2016-05-13] MEDS ORDERED: CARDENE DRIP 40 MG/200 ML 40 MG/200 ML BAG IV SCH (22:00)
[2016-05-13] MEDS ORDERED: NACL 0.9% 500 ML IV SCH (22:00)
[2016-05-13 22:06] LABS: Creatine Kinase MB 2.8 ng/mL (0.0-4.0)
[2016-05-13 22:07] LABS: Alanine Aminotransferase 25 units/L (7-56); Albumin 4.1 g/dL (3.9-5); Albumin/Globulin Ratio 1.2 %; Alkaline Phosphatase 78 units/L (35-129); Anion Gap 28 mmol/L; BUN/Creatinine Ratio 13.57; Bilirubin,Total 0.4 mg/dL (0.1-1.2); Blood Urea Nitrogen 19 mg/dL (7-17); Carbon Dioxide 19 mmol/L (22-30); Chloride 96.4 mmol/L (98-107); Creatine Kinase 339 units/L (30-135); Glucose 273 mg/dL (65-100); Potassium 4.7 mmol/L (3.6-5.0); Sodium 139 mmol/L (137-145); Total Protein 7.5 g/dL (6.3-8.2)
[2016-05-13 22:22] LABS: Hemoglobin 13.4 gm/dl (10.1-14.3); Mean Corpuscular HGB Conc 32 % (30-34); Mean Corpuscular Hemoglobin 32 pg (28-32); Mean Corpuscular Volume 101 fl (79-97); Platelet Count 203 K/mm3 (140-440); Red Blood Count 4.17 M/mm3 (3.65-5.03); Red Cell Distribution Width 14.1 % (13.2-15.2); White Blood Count 10.8 K/mm3 (4.5-11.0)
[2016-05-13] MEDS ORDERED: NACL 0.9% 1000 ML 1,000 ML ONE (22:54)
[2016-05-13] MEDS: ATIVAN IV ONE ×2 (23:00→23:10)
[2016-05-13] MEDS: VERSED/NS 100MG/100ML 100 MG/100 ML BAG IV SCH (23:00)
[2016-05-13] MEDS ORDERED: NACL 0.9% 1000 ML 1,000 ML IV ONE (23:00)
[2016-05-13] MEDS ORDERED: VERSED/NS 100MG/100ML 100 MG/100 ML BAG IV ONE (23:05)
[2016-05-13 23:06] LABS: Blastocytes % (Manual) 0 %
[2016-05-13 23:08] LABS: Diff Status Complete; Macrocytosis 1+; Platelet Estimate Consistent w Auto; Poikilocytosis 1+
--- NOTE | 2016-05-13 23:31 | History and Physical Report ---
History of Present Illness Date of examination: 05/13/16 Chief complaint: Altered mental status History of present illness: 50 yo female the past medical history of COPD, hypertension, and non-insulin- dependent diabetes presents to the hospital with shortness of breath and altered mental status. EMS reports that at the scene stated the patient was short of breath and has used multiple albuterol inhaler treatments at the scene. Patient was unresponsive upon their arrival requiring bag valve mask ventilations. While she is in the ED she was intubated, mechanically ventilated and couldn't get any history. No family member was in the room during examinations. Past History Past Medical History: COPD, diabetes, other (asthma, Bronchitis) Past Surgical History: Other Social history: , lives with family, smoking (previous), full code. denies: alcohol abuse, IV drug use Family history: no significant family history Medications and Allergies Allergies Allergy/AdvReac Type Severity Reaction Status Date / Time aspirin Allergy Unknown Verified 04/17/16 22:29 Home Medications Medication Instructions Recorded Confirmed Last Taken Type ALBUTEROL Inhaler [ProAir HFA 2 puff IH QID PRN #1 inhalation 04/21/16 Unknown Rx Inhaler] Azithromycin [Zithromax TAB] 250 mg PO QDAY #3 tablet 04/21/16 Unknown Rx Hydrochlorothiazide [HCTZ] 25 mg PO QDAY #30 tablet 04/21/16 Unknown Rx Lisinopril [Zestril TAB] 40 mg PO QDAY #30 tablet 04/21/16 Unknown Rx Prednisone [predniSONE 5 mg (6-Day 5 mg PO .TAPER #1 tab.ds.pk 04/21/16 Unknown Rx Pack, 21 Tabs)] Tiotropium [place] [Spiriva 4 gm IH DAILY #1 mist.inhal 04/21/16 Unknown Rx Respimat] amLODIPine [Norvasc] 10 mg PO QDAY #30 tablet 04/21/16 Unknown Rx oxyCODONE /ACETAMINOPHEN [Percocet 1 tab PO Q6H PRN #30 tablet 04/21/16 Unknown Rx 5/325 mg] Active Meds: Active Medications Hydrophilic Ointment (Vaseline Lip Therapy) 1 applic TP Q2HR PRN PRN Reason: Dry Lips Propofol (Diprivan 10 Mg/Ml) 1,000 mg in 100 mls @ 1.973 mls/hr IV TITR FREDDY; 5 MCG/KG/MIN PRN Reason: Protocol Last Titration: 05/13/16 21:55 Dose: 38.01 mcg/kg/min, 15 mls/hr Sodium Chloride (Nacl 0.9% 1000 Ml) 1,000 mls @ 999 mls/hr IV BOLUS ONE Stop: 05/14/16 00:00 Last Admin: 05/13/16 23:00 Dose: 999 mls/hr Multi-Ingred Cream/Lotion/Oil/Oint (Artificial Tears Ophth Oint) 1 applic OU Q4HR PRN PRN Reason: Dry Eye(s) Sodium Chloride (Nacl 0.9% 500 Ml) 1 ml IV DIRECT FREDDY Review of Systems ROS unobtainable: due to endotracheal tube (patient is intubated and sedated so that couldn't get ROS), due to mental status Exam - Physical Exam Narrative exam: Patient is intubated and mechanically ventilated, sedated. The patient appeared well nourished and normally developed. Vital signs as documented. Head exam is unremarkable. No scleral icterus . Neck is without jugular venous distension, thyromegaly, or carotid bruits. Lungs are significant for wheezing. Cardiac exam reveals regular rate and Rhythm. First and second heart sounds normal. No murmurs, rubs or gallops. Abdominal exam reveals normal bowel sounds, no masses, no organomegaly and no aortic enlargement. Extremities are nonedematous and both femoral and pedal pulses are normal. 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 - Constitutional Vitals: Temp Pulse Resp BP Pulse Ox 94 H 21 163/77 100 05/13/16 23:21 05/13/16 23:21 05/13/16 21:45 05/13/16 21:45 Results - Labs CBC & Chem 7: 05/13/16 21:25 05/13/16 21:25 Labs: Laboratory Last Values WBC 10.8 K/mm3 (4.5-11.0) 05/13/16 21:25 RBC 4.17 M/mm3 (3.65-5.03) 05/13/16 21:25 Hgb 13.4 gm/dl (10.1-14.3) 05/13/16 21:25 Hct 42.0 % (30.3-42.9) 05/13/16 21:25 MCV 101 fl (79-97) H 05/13/16 21:25 MCH 32 pg (28-32) 05/13/16 21:25 MCHC 32 % (30-34) 05/13/16 21:25 RDW 14.1 % (13.2-15.2) 05/13/16 21:25 Plt Count 203 K/mm3 (140-440) 05/13/16 21:25 Lymph % (Auto) Visual Merchandising Associate 05/13/16 21:25 Lymph # Visual Merchandising Associate 05/13/16 21:25 Add Manual Diff Complete 05/13/16 21:25 Total Counted 100 05/13/16 21:25 Seg Neutrophils % Visual Merchandising Associate 05/13/16 21:25 Seg Neuts % (Manual) 33.0 % (40.0-70.0) L 05/13/16 21:25 Band Neutrophils % 1.0 % 05/13/16 21:25 Lymphocytes % (Manual) 57.0 % (13.4-35.0) H 05/13/16 21:25 Reactive Lymphs % (Man) 0 % 05/13/16 21:25 Monocytes % (Manual) 6.0 % (0.0-7.3) 05/13/16 21:25 Eosinophils % (Manual) 2.0 % (0.0-4.3) 05/13/16 21:25 Basophils % (Manual) 1.0 % (0.0-1.8) 05/13/16 21:25 Metamyelocytes % 0 % 05/13/16 21:25 Myelocytes % 0 % 05/13/16 21:25 Promyelocytes % 0 % 05/13/16 21:25 Blast Cells % 0 % 05/13/16 21:25 Nucleated RBC % Not Reportable 05/13/16 21:25 Seg Neutrophils # Man 3.6 K/mm3 (1.8-7.7) 05/13/16 21:25 Band Neutrophils # 0.1 K/mm3 05/13/16 21:25 Lymphocytes # (Manual) 6.2 K/mm3 (1.2-5.4) H 05/13/16 21:25 Abs React Lymphs (Man) 0.0 K/mm3 05/13/16 21:25 Monocytes # (Manual) 0.6 K/mm3 (0.0-0.8) 05/13/16 21:25 Eosinophils # (Manual) 0.2 K/mm3 (0.0-0.4) 05/13/16 21:25 Basophils # (Manual) 0.1 K/mm3 (0.0-0.1) 05/13/16 21:25 Metamyelocytes # 0.0 K/mm3 05/13/16 21:25 Myelocytes # 0.0 K/mm3 05/13/16 21:25 Promyelocytes # 0.0 K/mm3 05/13/16 21:25 Blast Cells # 0.0 K/mm3 05/13/16 21:25 WBC Morphology Not Reportable 05/13/16 21:25 Hypersegmented Neuts Not Reportable 05/13/16 21:25 Hyposegmented Neuts Not Reportable 05/13/16 21:25 Hypogranular Neuts Not Reportable 05/13/16 21:25 Smudge Cells Not Reportable 05/13/16 21:25 Toxic Granulation Not Reportable 05/13/16 21:25 Toxic Vacuolation Not Reportable 05/13/16 21:25 Dohle Bodies Not Reportable 05/13/16 21:25 Pelger-Huet Anomaly Not Reportable 05/13/16 21:25 Michell Rods Not Reportable 05/13/16 21:25 Platelet Estimate Consistent w auto 05/13/16 21:25 Clumped Platelets Not Reportable 05/13/16 21:25 Plt Clumps, EDTA Not Reportable 05/13/16 21:25 Large Platelets Not Reportable 05/13/16 21:25 Giant Platelets Not Reportable 05/13/16 21:25 Platelet Satelliting Not Reportable 05/13/16 21:25 Plt Morphology Comment Not Reportable 05/13/16 21:25 RBC Morphology Not Reportable 05/13/16 21:25 Dimorphic RBCs Not Reportable 05/13/16 21:25 Polychromasia Not Reportable 05/13/16 21:25 Hypochromasia Not Reportable 05/13/16 21:25 Poikilocytosis 1+ 05/13/16 21:25 Anisocytosis Not Reportable 05/13/16 21:25 Microcytosis Not Reportable 05/13/16 21:25 Macrocytosis 1+ 05/13/16 21:25 Spherocytes Not Reportable 05/13/16 21:25 Pappenheimer Bodies Not Reportable 05/13/16 21:25 Sickle Cells Not Reportable 05/13/16 21:25 Target Cells Not Reportable 05/13/16 21:25 Tear Drop Cells Not Reportable 05/13/16 21:25 Ovalocytes Not Reportable 05/13/16 21:25 Helmet Cells Not Reportable 05/13/16 21:25 [place] Bodies Not Reportable 05/13/16 21:25 [place] Rings Not Reportable 05/13/16 21:25 Ward Cells Not Reportable 05/13/16 21:25 Bite Cells Not Reportable 05/13/16 21:25 Crenated Cell Not Reportable 05/13/16 21:25 Elliptocytes Not Reportable 05/13/16 21:25 Acanthocytes (Spur) Not Reportable 05/13/16 21:25 Rouleaux Not Reportable 05/13/16 21:25 Hemoglobin C Crystals Not Reportable 05/13/16 21:25 Schistocytes Not Reportable 05/13/16 21:25 Malaria parasites Not Reportable 05/13/16 21:25 Ky Bodies Not Reportable 05/13/16 21:25 Hem Pathologist Commnt No 05/13/16 21:25 D-Dimer 237.39 ng/mlDDU (0-234) H 05/13/16 21:25 Sodium 139 mmol/L (137-145) 05/13/16 21:25 Potassium 4.7 mmol/L (3.6-5.0) 05/13/16 21:25 Chloride 96.4 mmol/L (98-107) L 05/13/16 21:25 Carbon Dioxide 19 mmol/L (22-30) L 05/13/16 21:25 Anion Gap 28 mmol/L 05/13/16 21:25 BUN 19 mg/dL (7-17) H 05/13/16 21:25 Creatinine 1.4 mg/dL (0.7-1.2) H 05/13/16 21:25 Estimated GFR 48 ml/min 05/13/16 21:25 BUN/Creatinine Ratio 13.57 % 05/13/16 21:25 Glucose 273 mg/dL (65-100) H 05/13/16 21:25 Calcium 9.0 mg/dL (8.4-10.2) 05/13/16 21:25 Total Bilirubin 0.4 mg/dL (0.1-1.2) 05/13/16 21:25 AST 31 units/L (5-40) 05/13/16 21:25 ALT 25 units/L (7-56) 05/13/16 21:25 Alkaline Phosphatase 78 units/L (35-129) 05/13/16 21:25 Total Creatine Kinase 339 units/L (30-135) H 05/13/16 21:25 CK-MB (CK-2) 2.8 ng/mL (0.0-4.0) 05/13/16 21:25 CK-MB (CK-2) Rel Index 0.8 (0-4) 05/13/16 21:25 Troponin T < 0.010 ng/mL (0.00-0.029) 05/13/16 21:25 Total Protein 7.5 g/dL (6.3-8.2) 05/13/16 21:25 Albumin 4.1 g/dL (3.9-5) 05/13/16 21:25 Albumin/Globulin Ratio 1.2 % 05/13/16 21:25 - Imaging and Cardiology Chest x-ray: image reviewed (ET tube in place) CT Scan - head: report reviewed (no acute intracranial process) Assessment and Plan Assessment and plan: Altered mental status secondary to CO2 narcosis Acute Hypercapnic respiratory failure - Patient had elevated CO2 level and pH of 7.1 - Patient was intubated and mechanically ventilated - Patient was agitated and on propofol - We'll repeat ABG - Patient is empirically on Levaquin - We are going to treat with IV Solu-Medrol - Stack Attendant consult placed The high probability of a clinically significant, sudden or life threatening deterioration of the [Respiratory] system(s) required my full and direct attention, intervention and personal management. The aggregate critical care time was [31] minutes. This time is in addition to time spent performing reported procedures but includes the following: [x] Data Review and interpretation [x] Patient assessment and monitoring of vital signs [x] Documentation [x] Medication orders and management Diabetes mellitus type 2 - Sliding scale insulin Prophylaxis - Lovenox Disposition - ICU
[2016-05-14] MEDS ORDERED: ATIVAN IV ONE ×2 (00:30→02:00)
[2016-05-14] MEDS ORDERED: NACL 0.9% 1000 ML 1,000 ML ONE (01:19)
[2016-05-14] MEDS ORDERED: ATIVAN ONE (01:21)
--- NOTE | 2016-05-14 01:58 | Cat Scan Report ---
FINAL REPORT PROCEDURE: CT HEAD/BRAIN WO CON TECHNIQUE: Computerized tomography of the head was performed without contrast material. HISTORY: unresponsive, ams, sob COMPARISON: No prior studies are available for comparison. FINDINGS: Skull and scalp: Normal. Paranasal sinuses: Normal. Ventricles and subarachnoid spaces: Normal. Cerebrum: No evidence of hemorrhage, acute infarction or mass . Cerebellum and brainstem: No evidence of hemorrhage, acute infarction or mass. Vasculature: Normal. Comments: None. IMPRESSION: There is no evidence of an acute intracranial process
[2016-05-14] MEDS: DIPRIVAN 10 MG/ML 1,000 MG/100 ML BOTTLE IV SCH ×3 (02:21→09:19)
[2016-05-14] MEDS: VERSED/NS 100MG/100ML 100 MG/100 ML BAG IV SCH ×3 (02:43→14:00)
[2016-05-14] MEDS ORDERED: PROVENTIL IH PRN (04:44)
[2016-05-14 05:58] LABS: Hematocrit 39.1 % (30.3-42.9); Hemoglobin 12.9 gm/dl (10.1-14.3); Mean Corpuscular HGB Conc 33 % (30-34); Mean Corpuscular Hemoglobin 32 pg (28-32); Mean Corpuscular Volume 98 fl (79-97); Platelet Count 193 K/mm3 (140-440); Red Blood Count 3.99 M/mm3 (3.65-5.03); Red Cell Distribution Width 14.1 % (13.2-15.2); White Blood Count 7.1 K/mm3 (4.5-11.0)
[2016-05-14 06:10] LABS: Anion Gap 21 mmol/L; Blood Urea Nitrogen 20 mg/dL (7-17); Calcium 8.6 mg/dL (8.4-10.2); Carbon Dioxide 21 mmol/L (22-30); Chloride 104.6 mmol/L (98-107); Glucose 116 mg/dL (65-100); Potassium 4.4 mmol/L (3.6-5.0); Sodium 142 mmol/L (137-145)
[2016-05-14] MEDS: HEPARIN SUB-Q SCH ×3 (07:12→21:14)
--- NOTE | 2016-05-14 08:47 | XRay Report ---
AP chest x-ray. Findings: Since yesterday's study, there has been no interval change. There are no acute cardia point findings. The endotracheal tube is in satisfactory position.
--- NOTE | 2016-05-14 08:47 | XRay Report ---
AP chest x-ray. Findings: The heart and lungs are normal. An endotracheal tube is in satisfactory position.
[2016-05-14] MEDS: DUONEB 0.5 MG-3 MG/3 ML SOLN IH SCH ×4 (08:50→20:44)
[2016-05-14] MEDS: LEVAQUIN 750MG/150ML 750 MG/150 ML BAG IV SCH (09:22)
[2016-05-14] MEDS: PEPCID IV SCH ×2 (09:22→21:15)
[2016-05-14 09:51] LABS: ISTAT Base Excess -4; ISTAT HCO3 21.5; ISTAT PCO2 35.9 (35-45); ISTAT PH 7.384 (7.35-7.45); ISTAT PO2 100 (80-105); ISTAT SO2 98; ISTAT TCO2 23
[2016-05-14 10:18] LABS: ISTAT Base Excess -3; ISTAT HCO3 25.4; ISTAT PCO2 66.8 (35-45); ISTAT PH 7.188 (7.35-7.45); ISTAT PO2 455 (80-105); ISTAT SO2 100; ISTAT TCO2 27
[2016-05-14 10:18] LABS: ISTAT Base Excess -3; ISTAT HCO3 22.9; ISTAT PCO2 44.2 (35-45); ISTAT PH 7.322 (7.35-7.45); ISTAT PO2 91 (80-105); ISTAT SO2 96; ISTAT TCO2 24
--- NOTE | 2016-05-14 10:27 | Consultation ---
History of Present Illness Consult date: 05/14/16 Requesting physician: KERRIE PRAKASH Reason for consult: other (Acute Respiratory Failure on MVS) History of present illness: PULMONARY/CCM CONSULT NOTE (Full dictation # [id number]) Please see dictated notes for full details Past History Past Medical History: COPD, diabetes, other (asthma, Bronchitis) Past Surgical History: Other Social history: , lives with family, smoking (previous), full code. denies: alcohol abuse, IV drug use Family history: no significant family history Medications and Allergies Allergies Allergy/AdvReac Type Severity Reaction Status Date / Time aspirin Allergy Unknown Verified 04/17/16 22:29 Home Medications Medication Instructions Recorded Confirmed Last Taken Type ALBUTEROL Inhaler [ProAir HFA 2 puff IH QID PRN #1 inhalation 04/21/16 Unknown Rx Inhaler] Azithromycin [Zithromax TAB] 250 mg PO QDAY #3 tablet 04/21/16 Unknown Rx Hydrochlorothiazide [HCTZ] 25 mg PO QDAY #30 tablet 04/21/16 Unknown Rx Lisinopril [Zestril TAB] 40 mg PO QDAY #30 tablet 04/21/16 Unknown Rx Prednisone [predniSONE 5 mg (6-Day 5 mg PO .TAPER #1 tab.ds.pk 04/21/16 Unknown Rx Pack, 21 Tabs)] Tiotropium [place] [Spiriva 4 gm IH DAILY #1 mist.inhal 04/21/16 Unknown Rx Respimat] amLODIPine [Norvasc] 10 mg PO QDAY #30 tablet 04/21/16 Unknown Rx oxyCODONE /ACETAMINOPHEN [Percocet 1 tab PO Q6H PRN #30 tablet 04/21/16 Unknown Rx 5/325 mg] Active Meds: Active Medications Albuterol (Proventil) 2.5 mg IH Q4HRT PRN PRN Reason: Shortness Of Breath Albuterol/Ipratropium (Duoneb 0.5 Mg-3 Mg/3 Ml Soln) 1 ampul IH QIDRT [facility] Last Admin: 05/14/16 08:50 Dose: 1 ampul Famotidine (Pepcid) 20 mg IV BID [facility] Last Admin: 05/14/16 09:22 Dose: 20 mg Heparin Sodium (Porcine) (Heparin) 5,000 unit SUB-Q Q8HR [facility] Last Admin: 05/14/16 07:12 Dose: 5,000 unit Hydrophilic Ointment (Vaseline Lip Therapy) 1 applic TP Q2HR PRN PRN Reason: Dry Lips Propofol (Diprivan 10 Mg/Ml) 1,000 mg in 100 mls @ 1.973 mls/hr IV TITR FREDDY; 5 MCG/KG/MIN PRN Reason: Protocol Last Admin: 05/14/16 09:19 Dose: 25 mcg/kg/min, 9.866 mls/hr Midazolam HCl (Versed/Ns 100mg/100ml) 100 mg in 100 mls @ 2 mls/hr IV TITR FREDDY ; 2 MG/HR PRN Reason: Protocol Last Titration: 05/14/16 08:00 Dose: 3 mg/hr, 3 mls/hr Levofloxacin/Dextrose (Levaquin 750mg/150ml) 750 mg in 150 mls @ 100 mls/hr IV Q24HR FREDDY PRN Reason: Protocol Last Admin: 05/14/16 09:22 Dose: 100 mls/hr Influenza Virus Vaccine Quadrival (Fluarix Quad 1425-2912(36 Mos+)) 60 mcg IM .ONCE ONE Stop: 05/14/16 12:01 Methylprednisolone Sodium Succinate (Solu-Medrol) 60 mg IV Q8HR [facility] Last Admin: 05/14/16 07:12 Dose: 60 mg Multi-Ingred Cream/Lotion/Oil/Oint (Artificial Tears Ophth Oint) 1 applic OU Q4HR PRN PRN Reason: Dry Eye(s) Pneumococcal Polyvalent Vaccine (Pneumovax 23) 0.5 ml IM .ONCE ONE Stop: 05/14/16 12:01 Sodium Chloride (Nacl 0.9% 500 Ml) 1 ml IV DIRECT [facility] Physical Examination Vital signs: Vital Signs Pulse BP Pulse Ox 98 H 177/104 100 05/13/16 21:15 05/13/16 21:15 05/13/16 21:15 Results - Laboratory Findings CBC and BMP: 05/14/16 05:10 05/14/16 05:10 ABG POC ABG pH 7.384 (7.35-7.45) 05/14/16 09:43 POC ABG pCO2 35.9 (35-45) 05/14/16 09:43 POC ABG pO2 100 (80-105) 05/14/16 09:43 POC ABG HCO3 21.5 05/14/16 09:43 POC ABG Total CO2 23 05/14/16 09:43 POC ABG O2 Sat 98 05/14/16 09:43 PT/INR, D-dimer D-Dimer 237.39 ng/mlDDU (0-234) H 05/13/16 21:25 Abnormal lab findings: Abnormal Labs 05/14/16 05/14/16 05/14/16 05:10 05:10 06:13 MCV 98 H D POC ABG pH 7.322 L Carbon Dioxide 21 L BUN 20 H Glucose 116 H
[2016-05-14] MEDS ORDERED: PANCREAZE DR 10,500 UNIT FEEDTUBE PRN (10:37)
[2016-05-14] MEDS ORDERED: SIMPLE SYRUP FEEDTUBE PRN ×2 (10:37)
[2016-05-14] MEDS ORDERED: SODIUM BICARBONATE FEEDTUBE PRN (10:37)
[2016-05-14] MEDS ORDERED: FLUARIX QUAD 2016-2017(36 MOS+) IM ONE (12:00)
[2016-05-14] MEDS ORDERED: PNEUMOVAX 23 IM ONE (12:00)
--- NOTE | 2016-05-14 12:28 | Consultation ---
CONSULTING PHYSICIAN: Ana Luisa Cottrell MD, Emergency Room doctor. REASON FOR CONSULTATION: Acute respiratory failure, hypercapnic, altered mental status. CHIEF COMPLAINT AND HISTORY OF PRESENT ILLNESS: The patient is a 50-year-old -[place]inamese female with past medical history reportedly significant amongst other things for a diagnosis of chronic obstructive lung disease as well as diabetes, came into the Emergency Room with shortness of breath and altered mental status. According to EMS, the at the scene mentioned that the patient had been short of breath at home, used multiple albuterol inhaler treatments, did not improve. On arrival in the Emergency Room, she was requiring bagged mask valve ventilation with a nasal trumpet in place. She was intubated by rapid sequence intubation and the Emergency Room doctor and ultimately transferred up to the intensive care unit. When I stopped by to see her, she had just received a bolus of propofol for insertion of an NG tube but was in 4 point restraints because of extreme agitation whenever she was tried on a sedation holiday and through the night. I do not have any history of nausea, vomiting, or overt aspiration, although I cannot rule that out and with regards to the patient's tobacco use/abuse history, she is reported as a former smoker. That is as much of the history of presentation as I have. PAST MEDICAL HISTORY: Hypertension, diabetes, asthma versus COPD. She is obese. PAST SURGICAL HISTORY: She has had a hernia repair in the past. MEDICATIONS: She was on at the time I stopped by to see her, according to the medication administration record, included the following: She was on albuterol nebulizer treatments q.4h. p.r.n., DuoNeb nebulized q.i.d. scheduled, Pepcid 20 mg IV b.i.d., heparin 5000 units subcutaneous q.8h., received flu vaccine, Levaquin 750 mg IV daily, Solu-Medrol 60 mg IV q.8h., Versed drip was going at 3 mg per hour, Propofol drip had just been held and that was all she was on medication jones. ALLERGIES: Aspirin, nature of this allergy is unknown. DIET: Obese lady, acute weight loss or gain history is unknown. FAMILY AND SOCIAL HISTORY: Lives in the community, is . A 10+ pack year remote tobacco smoking history according to the family. No current alcohol, tobacco, or illicit drug use or abuse. Family history, otherwise noncontributory. REVIEW OF SYSTEMS: Unobtainable secondary to the patient's medical and mental condition since she has been here, no gross hematochezia or melena, no gross hematuria, no hematemesis, no bloody tracheal secretions. She is moving all extremities spontaneously. PHYSICAL EXAMINATION: VITAL SIGNS: At presentation in the Emergency Room vital signs: She was afebrile, temperature 98.2, pulse 98, respiratory rate first recorded as 27, blood pressure 177/104 as high as 192/127. Oxygen sats 100%, inspired oxygen concentration was not recorded. HEAD, EYES, EARS, NOSE, AND THROAT: Pupils are equal, round, about 2 mm, very sluggishly reactive to light. Extraocular muscle movements could not be assessed. Endotracheal tube was placed, taped at the lips around 23 cm. Grossly, no palpable lymph nodes in the supraclavicular or submandibular lymph node chains. LUNGS: Auscultation of both lung guallpa unremarkable. Lungs are clear bilaterally. HEART: Heart sounds 1 and 2 are heard. There were regular rate and rhythm at the time of my evaluation. ABDOMEN: Soft. Bowel sounds are positive, nontender. EXTREMITIES: Without overt digital clubbing, cyanosis, or pedal edema. NEUROLOGIC: She was sedated, but she was also in four-point restraints. LABORATORY DATA: From my review, white cell count 10,800, hemoglobin 13.4, hematocrit 42.0, platelet counts 203. D-dimer was elevated. Arterial blood gas at presentation showed a pH of 7.19, pCO2 of 67, pO2 of 455 on 100% FIO2. Vent settings unknown, but she is currently on tidal volumes of 500, rate of 20, PEEP of 5, 50% FIO2. Serum sodium was 139, potassium 4.7, chloride 96, bicarbonate 19, BUN 19, creatinine 1.4, glucose 273. Troponin within normal limits. CPK slightly up at 339. Radiographic studies were done. Amongst the chest x-ray, I am pulling that up. A CT of the head was also done. CT of the head was reported as normal CT of the head without evidence of any acute intracranial process. Chest x-ray, the radiologist's interpretation of the chest x-ray from today mentions endotracheal tube in satisfactory position. No acute process otherwise. ASSESSMENT AND PLAN: We have a middle-aged lady in with acute hypercapnic respiratory failure, presumed COPD exacerbation, as usual the question is why. From a respiratory standpoint, I do note the elevated D-dimers, I will go ahead and order a CTA of her chest with IV contrast to evaluate for pulmonary emboli. Bronchodilators will be continued as ordered. Systemic steroids will be continued as ordered. We will start the weaning process as soon as we can. We will drop set minute ventilation, I should say, drop the rate to 14. Aspiration precautions and other ventilator bundles will be instituted and we will see if she is weanable again. From a cardiovascular standpoint, blood pressure is stable, holding at this point. We are following her clinically. Cardiac enzymes are negative at presentation. From a GI and nutritional standpoint, enteral nutrition will be the feeding modality of choice. Feeding tube has been placed. She is appropriately on GI prophylaxis. Aspiration precautions will be maintained. From a renal standpoint, no major electrolyte abnormalities at this point. Inputs and outputs will be monitored. Electrolytes will be corrected as necessary. From infectious disease standpoint, she is on empiric community acquired pneumonia therapy. Tracheal aspirate is pending. We will deescalate anti-infectives based on the results of clinical and microbiologic data. From a NURSE ORTHOPEDIC standpoint, CT of the brain is negative, appears her distress is probably related to the difficulty breathing. We will see if we can slowly wean her off sedative and get a better evaluation. From a general and hospital healthcare maintenance standpoint, she is going to be on GI and DVT prophylaxis. Flu and pneumonia vaccination will be per protocol. Thank you very much for the consult Dr. Cottrell. We will follow along and make further recommendations as picture progresses/becomes clearer. At this point, I have spent about 30-35 minutes of critical care time without overlap and excluding any procedurals that may be necessary. She is critically ill on life-sustaining interventions including mechanical ventilatory support and will be followed in the Critical Care Unit. JOB# [id number] ROGE/LUCITA
--- NOTE | 2016-05-14 12:29 | Admit Criteria Form ---
Admission Criteria Documentation: RESPIRATORY FAILURE GRG Clinical Indications for Admission to Inpatient Care (Place 'X' for any and all applicable criteria): Hospital admission is needed for appropriate care of the patient because of acute respiratory failure or insufficiency as indicated by ANY ONE of the following(1)(2)(3)(4)(5)(6)(7)(8): [X]I. Mechanical ventilation needed (acute invasive or noninvasive) [X]II. Severe ventilation deficit as indicated by ANY ONE of the following (9) [X]a) Respiratory acidosis (pH less than 7.32 and partial pressure of carbon dioxide greater than 40 mm Hg (5.3 kPa)) [X]b) Partial pressure of carbon dioxide greater than 44 mm Hg (5.9 kPa ) (new) [ ]c) Airflow measurements less than 25% of predicted (eg, peak expiratory flow rate less than 100 L/minute) [ ]d) Forced vital capacity less than 15 mL/kg of ideal body weight, or 50% decrease in vital capacity from baseline [ ]III. Noncardiac pulmonary edema not resolving with rapid emergency treatment (8) [X]IV. Severe respiratory distress as indicated by ANY ONE of the following: [ ]a) Severe tachypnea (respiratory rate greater than 30, greater than 45 for 6-month-old, greater than 60 for ) [ ]b) Severe hypoxemia (partial pressure of oxygen less than 50 mm Hg ( 6.7 kPa) on greater than 50% oxygen or partial pressure of oxygen to FIO2 ratio less than 200) [X]c) Mental status deterioration from respiratory disease [X]V. Airway obstruction or inadequate protection [A](10)(11) The original [employer] content created by [employer] has been revised. The portions of the content which have been revised are identified through the use of italic text or in bold, and [employer] has neither reviewed nor approved the modified material. All other unmodified content is copyright [employer]. Please see references footnoted in the original [employer] edition 2016 Admission Criteria Met: Yes
[2016-05-14 13:08] LABS: Urine Drugs of Abuse Note Disclamer
[2016-05-14] MEDS ORDERED: NACL ONE (13:11)
--- NOTE | 2016-05-14 14:07 | Cat Scan Report ---
CTA CHEST: History: Acute respiratory failure Technique: Helical CT following IV contrast. Pulmonary embolus protocol. Sagittal and coronal reformatted images. Rotational MIP images. Findings: Contrast bolus is satisfactory. No pulmonary embolus is identified. There are moderate centrilobular emphysematous changes in both lungs. There are mild bibasilar airspace opacities. I suspect this represents segmental atelectasis. Infiltrates could be considered if fever is present. No pleural effusion or pneumothorax. The thyroid gland, tracheobronchial tree, esophagus, heart, pericardium, mediastinal vessels, and bony thorax are unremarkable. Impression: No pulmonary embolus identified. Emphysema. Bibasilar opacities most consistent with segmental atelectasis.
--- NOTE | 2016-05-14 14:39 | XRay Report ---
SUPINE KUB: The abdominal gas pattern is unremarkable. No masses or organomegaly is identified and there is no gross evidence of free air or fluid. No significant soft tissue calcifications are noted. The feeding tube is coiled in the fundus of the stomach with its tip near the GE junction. IMPRESSION: Normal study.
[2016-05-14] MEDS ORDERED: QUELICIN ONE (15:27)
[2016-05-14] MEDS ORDERED: AMIDATE IV ONE (15:27)
[2016-05-14] MEDS: fentaNYL DRIP Premix 2,000 MCG/100 ML BAG IV SCH (16:32)
--- NOTE | 2016-05-14 17:21 | Progress Note ---
Assessment and Plan Assessment and plan: 50 yo female the past medical history of COPD, hypertension, and non-insulin- dependent diabetes presents to the hospital with shortness of breath and altered mental status. EMS reports that at the scene stated the patient was short of breath and has used multiple albuterol inhaler treatments at the scene. Patient was unresponsive upon their arrival requiring bag valve mask ventilations. While she is in the ED she was intubated, mechanically ventilated and couldn't get any history. * Acute Encephalopathy * Co2 Narcosis * Acute Hypercapnic respiratory failure * Diabetes Mellitus type 2 * Polysubstance abuse * Metabolic Acidosis * Asthma Plan: * Continue current therapy, wean vent as needed * continue empiric antibiotics * Discussed with information scientist and also the family * Add sodium bicarb * CTA Chest reviewed and is negative for pulmonary embolism The high probability of a clinically significant, sudden or life threatening deterioration of the [Respiratory] system(s) required my full and direct attention, intervention and personal management. The aggregate critical care time was [35] minutes. This time is in addition to time spent performing reported procedures but includes the following: [x] Data Review and interpretation [x] Patient assessment and monitoring of vital signs [x] Documentation [x] Medication orders and management History Interval history: Patient seen and examined, remains intubated. Agitated at every attempt to wean sedation. No other adverse report given to me by nursing staff. Hospitalist Physical - Physical exam Narrative exam: VITAL SIGNS: Reviewed. GENERAL: Appears well-nourished and developed, intubated, sedated Vital signs as documented. HEAD: No signs of head trauma. EYES: Pupils are equal. EARS:UNABLE TO ACCESS MOUTH: ETT in place NECK: No adenopathy, no JVD. CHEST: Chest with diminished breath sounds bilaterally. No wheezes, rales, or rhonchi. CARDIAC: Regular rate and rhythm. S1 and S2, without murmurs, gallops, or rubs. VASCULAR: No Edema. Peripheral pulses normal and equal in all extremities. ABDOMEN: Soft, without detectable tenderness. No sign of distention. No rebound or guarding, and no masses palpated. Bowel Sounds normal. MUSCULOSKELETAL: Good range of motion of all major joints. Extremities without clubbing, cyanosis or edema. NEUROLOGIC EXAM: sedated. PSYCHIATRIC: Mood normal. SKIN: tattoe - Constitutional Vitals: Temp Pulse Resp BP Pulse Ox 98.4 F 97 H 20 177/116 98 05/14/16 16:00 05/14/16 14:37 05/14/16 14:37 05/14/16 13:00 05/14/16 14:34 Results - Labs CBC & Chem 7: 05/14/16 05:10 05/14/16 05:10 Labs: Laboratory Last Values WBC 7.1 K/mm3 (4.5-11.0) 05/14/16 05:10 RBC 3.99 M/mm3 (3.65-5.03) 05/14/16 05:10 Hgb 12.9 gm/dl (10.1-14.3) 05/14/16 05:10 Hct 39.1 % (30.3-42.9) 05/14/16 05:10 MCV 98 fl (79-97) H D 05/14/16 05:10 MCH 32 pg (28-32) 05/14/16 05:10 MCHC 33 % (30-34) 05/14/16 05:10 RDW 14.1 % (13.2-15.2) 05/14/16 05:10 Plt Count 193 K/mm3 (140-440) 05/14/16 05:10 Lymph % (Auto) Cushion Cover Inspector 05/13/16 21:25 Lymph # Cushion Cover Inspector 05/13/16 21:25 Add Manual Diff Complete 05/13/16 21:25 Total Counted 100 05/13/16 21:25 Seg Neutrophils % Cushion Cover Inspector 05/13/16 21:25 Seg Neuts % (Manual) 33.0 % (40.0-70.0) L 05/13/16 21:25 Band Neutrophils % 1.0 % 05/13/16 21:25 Lymphocytes % (Manual) 57.0 % (13.4-35.0) H 05/13/16 21:25 Reactive Lymphs % (Man) 0 % 05/13/16 21:25 Monocytes % (Manual) 6.0 % (0.0-7.3) 05/13/16 21:25 Eosinophils % (Manual) 2.0 % (0.0-4.3) 05/13/16 21:25 Basophils % (Manual) 1.0 % (0.0-1.8) 05/13/16 21:25 Metamyelocytes % 0 % 05/13/16 21:25 Myelocytes % 0 % 05/13/16 21:25 Promyelocytes % 0 % 05/13/16 21:25 Blast Cells % 0 % 05/13/16 21:25 Nucleated RBC % Not Reportable 05/13/16 21:25 Seg Neutrophils # Man 3.6 K/mm3 (1.8-7.7) 05/13/16 21:25 Band Neutrophils # 0.1 K/mm3 05/13/16 21:25 Lymphocytes # (Manual) 6.2 K/mm3 (1.2-5.4) H 05/13/16 21:25 Abs React Lymphs (Man) 0.0 K/mm3 05/13/16 21:25 Monocytes # (Manual) 0.6 K/mm3 (0.0-0.8) 05/13/16 21:25 Eosinophils # (Manual) 0.2 K/mm3 (0.0-0.4) 05/13/16 21:25 Basophils # (Manual) 0.1 K/mm3 (0.0-0.1) 05/13/16 21:25 Metamyelocytes # 0.0 K/mm3 05/13/16 21:25 Myelocytes # 0.0 K/mm3 05/13/16 21:25 Promyelocytes # 0.0 K/mm3 05/13/16 21:25 Blast Cells # 0.0 K/mm3 05/13/16 21:25 WBC Morphology Not Reportable 05/13/16 21:25 Hypersegmented Neuts Not Reportable 05/13/16 21:25 Hyposegmented Neuts Not Reportable 05/13/16 21:25 Hypogranular Neuts Not Reportable 05/13/16 21:25 Smudge Cells Not Reportable 05/13/16 21:25 Toxic Granulation Not Reportable 05/13/16 21:25 Toxic Vacuolation Not Reportable 05/13/16 21:25 Dohle Bodies Not Reportable 05/13/16 21:25 Pelger-Huet Anomaly Not Reportable 05/13/16 21:25 Michell Rods Not Reportable 05/13/16 21:25 Platelet Estimate Consistent w auto 05/13/16 21:25 Clumped Platelets Not Reportable 05/13/16 21:25 Plt Clumps, EDTA Not Reportable 05/13/16 21:25 Large Platelets Not Reportable 05/13/16 21:25 Giant Platelets Not Reportable 05/13/16 21:25 Platelet Satelliting Not Reportable 05/13/16 21:25 Plt Morphology Comment Not Reportable 05/13/16 21:25 RBC Morphology Not Reportable 05/13/16 21:25 Dimorphic RBCs Not Reportable 05/13/16 21:25 Polychromasia Not Reportable 05/13/16 21:25 Hypochromasia Not Reportable 05/13/16 21:25 Poikilocytosis 1+ 05/13/16 21:25 Anisocytosis Not Reportable 05/13/16 21:25 Microcytosis Not Reportable 05/13/16 21:25 Macrocytosis 1+ 05/13/16 21:25 Spherocytes Not Reportable 05/13/16 21:25 Pappenheimer Bodies Not Reportable 05/13/16 21:25 Sickle Cells Not Reportable 05/13/16 21:25 Target Cells Not Reportable 05/13/16 21:25 Tear Drop Cells Not Reportable 05/13/16 21:25 Ovalocytes Not Reportable 05/13/16 21:25 Helmet Cells Not Reportable 05/13/16 21:25 [place] Bodies Not Reportable 05/13/16 21:25 [place] Rings Not Reportable 05/13/16 21:25 Ward Cells Not Reportable 05/13/16 21:25 Bite Cells Not Reportable 05/13/16 21:25 Crenated Cell Not Reportable 05/13/16 21:25 Elliptocytes Not Reportable 05/13/16 21:25 Acanthocytes (Spur) Not Reportable 05/13/16 21:25 Rouleaux Not Reportable 05/13/16 21:25 Hemoglobin C Crystals Not Reportable 05/13/16 21:25 Schistocytes Not Reportable 05/13/16 21:25 Malaria parasites Not Reportable 05/13/16 21:25 Ky Bodies Not Reportable 05/13/16 21:25 Hem Pathologist Commnt No 05/13/16 21:25 D-Dimer 237.39 ng/mlDDU (0-234) H 05/13/16 21:25 POC ABG pH 7.384 (7.35-7.45) 05/14/16 09:43 POC ABG pCO2 35.9 (35-45) 05/14/16 09:43 POC ABG pO2 100 (80-105) 05/14/16 09:43 POC ABG HCO3 21.5 05/14/16 09:43 POC ABG Total CO2 23 05/14/16 09:43 POC ABG O2 Sat 98 05/14/16 09:43 POC ABG Base Excess -4 05/14/16 09:43 FiO2 50 % 05/14/16 09:43 Sodium 142 mmol/L (137-145) 05/14/16 05:10 Potassium 4.4 mmol/L (3.6-5.0) 05/14/16 05:10 Chloride 104.6 mmol/L (98-107) 05/14/16 05:10 Carbon Dioxide 21 mmol/L (22-30) L 05/14/16 05:10 Anion Gap 21 mmol/L 05/14/16 05:10 BUN 20 mg/dL (7-17) H 05/14/16 05:10 Creatinine 0.8 mg/dL (0.7-1.2) 05/14/16 05:10 Estimated GFR > 60 ml/min 05/14/16 05:10 BUN/Creatinine Ratio 25.00 % 05/14/16 05:10 Glucose 116 mg/dL (65-100) H 05/14/16 05:10 POC Glucose 93 (70-105) 05/14/16 02:10 Calcium 8.6 mg/dL (8.4-10.2) 05/14/16 05:10 Total Bilirubin 0.4 mg/dL (0.1-1.2) 05/13/16 21:25 AST 31 units/L (5-40) 05/13/16 21:25 ALT 25 units/L (7-56) 05/13/16 21:25 Alkaline Phosphatase 78 units/L (35-129) 05/13/16 21:25 Total Creatine Kinase 339 units/L (30-135) H 05/13/16 21:25 CK-MB (CK-2) 2.8 ng/mL (0.0-4.0) 05/13/16 21:25 CK-MB (CK-2) Rel Index 0.8 (0-4) 05/13/16 21:25 Troponin T < 0.010 ng/mL (0.00-0.029) 05/13/16 21:25 Total Protein 7.5 g/dL (6.3-8.2) 05/13/16 21:25 Albumin 4.1 g/dL (3.9-5) 05/13/16 21:25 Albumin/Globulin Ratio 1.2 % 05/13/16 21:25 Urine Opiates Screen Presumptive negative 05/14/16 13:02 Urine Methadone Screen Presumptive negative 05/14/16 13:02 Ur Barbiturates Screen Presumptive negative 05/14/16 13:02 Ur Phencyclidine Scrn Presumptive negative 05/14/16 13:02 Ur Amphetamines Screen Presumptive negative 05/14/16 13:02 U Benzodiazepines Scrn Presumptive positive 05/14/16 13:02 Urine Cocaine Screen Presumptive positive 05/14/16 13:02 U Marijuana (THC) Screen Presumptive positive 05/14/16 13:02 Drugs of Abuse Note Disclamer 05/14/16 13:02 - Imaging and Cardiology Chest x-ray: image reviewed (no acute pathology noted)
[2016-05-15] MEDS: fentaNYL DRIP Premix 2,000 MCG/100 ML BAG IV SCH (02:10)
[2016-05-15 05:55] LABS: ISTAT Base Excess 2; ISTAT HCO3 26.5; ISTAT PCO2 42.4 (35-45); ISTAT PH 7.404 (7.35-7.45); ISTAT PO2 140 (80-105); ISTAT SO2 99; ISTAT TCO2 28
[2016-05-15] MEDS: HEPARIN SUB-Q SCH ×3 (06:10→21:05)
--- NOTE | 2016-05-15 07:40 | XRay Report ---
Single view chest: Compared to 05/14/16. History: Followup respiratory failure. Findings: Normal cardiomediastinal silhouette. Stable support system. No consolidation, pneumothorax or pleural effusion. No significant interval change. Impression: No significant interval change.
[2016-05-15] MEDS: DUONEB 0.5 MG-3 MG/3 ML SOLN IH SCH ×4 (07:54→21:28)
[2016-05-15] MEDS: PEPCID PO SCH ×2 (09:27→21:05)
[2016-05-15] MEDS: LEVAQUIN 750MG/150ML 750 MG/150 ML BAG IV SCH (09:27)
[2016-05-15 11:17] LABS: Anion Gap 16 mmol/L; BUN/Creatinine Ratio 27.14; Blood Urea Nitrogen 19 mg/dL (7-17); Calcium 9.1 mg/dL (8.4-10.2); Carbon Dioxide 24 mmol/L (22-30); Chloride 99.4 mmol/L (98-107); Glucose 157 mg/dL (65-100); Potassium 4.6 mmol/L (3.6-5.0); Sodium 135 mmol/L (137-145)
--- NOTE | 2016-05-15 11:29 | Progress Note ---
Assessment and Plan - Patient Problems (1) Acute hypoxemic respiratory failure Current Visit: Yes Status: Acute Plan to address problem: - will keep on PSV through the day as tolerated; repeat SBT in AM and extubate if meets criteria - continue bronchodilators and pulmonary toilet - continue aspiration precautions/VAP bundles - wean oxygen to keep sats > 94% (2) Altered mental status Current Visit: Yes Status: Acute Qualifiers: Altered mental status type: A Coma depth: C Coma timing: C Plan to address problem: - hold all IV benzo's sedation - use prn versed and fentanyl - follow clinically (CT edward negative) (3) COPD exacerbation Current Visit: Yes Status: Acute Plan to address problem: - systemic steroid taper - otherwise as for respiratory failure above (4) Diabetes Current Visit: Yes Status: Acute Qualifiers: Diabetes mellitus type: D Diabetes mellitus complication status: D Diabetes mellitus complication detail: D Diabetic retinopathy severity: D Proliferative retinopathy type: P Diabetes mellitus macular edema: D Diabetes mellitus lobsterman insulin use: D Laterality: L Chronic kidney disease stage: C Plan to address problem: - SSI (5) Discharge planning issues Current Visit: Yes Status: Acute Plan to address problem: ....too lethargic for safe extubation; will keep on PSV as tolerated ....re-evaluate in am & prn ...32' CCT Subjective Date of service: 05/15/16 Principal diagnosis: Acute Hypoxemic Respiratory Failure Interval history: Seen and examined at bedside; 24 hour events reviewed; nursing and respiratory care staff consulted; no adverse overnight events reported to me; remains on MVS ; tenuously tolerating PSV trials re: apneic spells; denies acute chest pains or increased SOB Objective Vital Signs - 12hr 05/14/16 05/15/16 05/15/16 23:54 00:00 01:00 Temperature 98.1 F Pulse Rate 69 71 Pulse Rate [ Anterior Bilateral Throughout] Pulse Rate [ 83 From Monitor] Respiratory 14 14 Rate Respiratory Rate [Anterior Bilateral Throughout] Blood Pressure 98/67 102/65 O2 Sat by Pulse 96 95 Oximetry 05/15/16 05/15/16 05/15/16 02:00 03:00 04:00 Temperature 97.8 F Pulse Rate 70 69 67 Pulse Rate [ Anterior Bilateral Throughout] Pulse Rate [ 80 From Monitor] Respiratory 14 14 14 Rate Respiratory Rate [Anterior Bilateral Throughout] Blood Pressure 102/65 98/65 97/64 O2 Sat by Pulse 96 96 97 Oximetry 05/15/16 05/15/16 05/15/16 05:00 05:36 06:00 Temperature Pulse Rate 64 66 68 Pulse Rate [ Anterior Bilateral Throughout] Pulse Rate [ From Monitor] Respiratory 14 14 Rate Respiratory Rate [Anterior Bilateral Throughout] Blood Pressure 100/69 106/69 99/69 O2 Sat by Pulse 97 97 93 Oximetry 05/15/16 05/15/16 05/15/16 07:00 07:51 07:54 Temperature Pulse Rate 65 65 Pulse Rate [ 64 Anterior Bilateral Throughout] Pulse Rate [ From Monitor] Respiratory 14 Rate Respiratory 14 Rate [Anterior Bilateral Throughout] Blood Pressure 101/65 99/66 O2 Sat by Pulse 93 96 Oximetry 05/15/16 05/15/16 05/15/16 08:00 08:44 09:00 Temperature Pulse Rate 63 61 Pulse Rate [ 60 Anterior Bilateral Throughout] Pulse Rate [ From Monitor] Respiratory 14 14 Rate Respiratory 14 Rate [Anterior Bilateral Throughout] Blood Pressure 103/72 102/71 O2 Sat by Pulse 97 96 Oximetry 05/15/16 05/15/16 05/15/16 09:24 10:00 11:00 Temperature Pulse Rate 54 L 59 L 70 Pulse Rate [ Anterior Bilateral Throughout] Pulse Rate [ From Monitor] Respiratory 12 12 12 Rate Respiratory Rate [Anterior Bilateral Throughout] Blood Pressure 102/71 163/98 172/99 O2 Sat by Pulse 99 91 95 Oximetry Constitutional: lethargic, appears uncomfortable Eyes: non-icteric ENT: oropharynx moist Neck: supple, no lymphadenopathy Effort: mildly labored Ascultation: Bilateral: diminished breath sounds, rales (posterior bases) Cardiovascular: regular rate and rhythm Gastrointestinal: normoactive bowel sounds, soft, non-tender, non-distended Integumentary: normal Extremities: no cyanosis, no edema, pulses normal, no ischemia or petechiae Neurologic: unable to assess Psychiatric: other (sedate) CBC and BMP: 05/15/16 10:44 05/15/16 10:44 ABG, PT/INR, D-dimer: ABG POC ABG pH 7.404 (7.35-7.45) 05/15/16 05:41 POC ABG pCO2 42.4 (35-45) 05/15/16 05:41 POC ABG pO2 140 (80-105) H 05/15/16 05:41 POC ABG HCO3 26.5 05/15/16 05:41 POC ABG Total CO2 28 05/15/16 05:41 POC ABG O2 Sat 99 05/15/16 05:41 PT/INR, D-dimer D-Dimer 237.39 ng/mlDDU (0-234) H 05/13/16 21:25 Abnormal lab findings: Abnormal Labs 05/14/16 05/14/16 05/14/16 05:10 05:10 06:13 MCV 98 H D POC ABG pH 7.322 L POC ABG pO2 Sodium Carbon Dioxide 21 L BUN 20 H Glucose 116 H Total Creatine Kinase 05/14/16 05/15/16 05/15/16 17:41 05:41 10:44 MCV POC ABG pH POC ABG pO2 140 H Sodium 135 L Carbon Dioxide BUN 19 H Glucose 157 H Total Creatine Kinase 292 H Chest x-ray: image reviewed
[2016-05-15 11:43] LABS: Hematocrit 38.3 % (30.3-42.9); Hemoglobin 12.7 gm/dl (10.1-14.3); Mean Corpuscular HGB Conc 33 % (30-34); Mean Corpuscular Hemoglobin 32 pg (28-32); Mean Corpuscular Volume 98 fl (79-97); Platelet Count 227 K/mm3 (140-440); Red Blood Count 3.93 M/mm3 (3.65-5.03); Red Cell Distribution Width 14.2 % (13.2-15.2); White Blood Count 10.8 K/mm3 (4.5-11.0)
[2016-05-15 12:24] LABS: ISTAT Base Excess 1; ISTAT HCO3 27.1; ISTAT PCO2 50.2 (35-45); ISTAT PO2 73 (80-105); ISTAT SO2 93; ISTAT TCO2 29
[2016-05-15] MEDS ORDERED: SODIUM BICARBONATE FEEDTUBE PRN (13:55)
[2016-05-15] MEDS ORDERED: SIMPLE SYRUP FEEDTUBE PRN ×2 (13:55)
[2016-05-15] MEDS ORDERED: PANCREAZE DR 10,500 UNIT FEEDTUBE PRN (13:55)
--- NOTE | 2016-05-15 17:57 | Progress Note ---
Assessment and Plan Assessment and plan: 50 yo female the past medical history of COPD, hypertension, and non-insulin- dependent diabetes presents to the hospital with shortness of breath and altered mental status. EMS reports that at the scene stated the patient was short of breath and has used multiple albuterol inhaler treatments at the scene. Patient was unresponsive upon their arrival requiring bag valve mask ventilations. While she is in the ED she was intubated, mechanically ventilated and couldn't get any history. * Acute Encephalopathy * Co2 Narcosis * Acute Hypercapnic respiratory failure * Diabetes Mellitus type 2 * Polysubstance abuse * Metabolic Acidosis * Asthma Plan: * Continue current therapy, wean vent as tolerated * Hold all sedation * continue empiric antibiotics * Continue sliding scale * Discussed with mat cleaning machine operator and also the family * Add sodium bicarb * CTA Chest reviewed and is negative for pulmonary embolism The high probability of a clinically significant, sudden or life threatening deterioration of the [Respiratory] system(s) required my full and direct attention, intervention and personal management. The aggregate critical care time was [32] minutes. This time is in addition to time spent performing reported procedures but includes the following: [x] Data Review and interpretation [x] Patient assessment and monitoring of vital signs [x] Documentation [x] Medication orders and management History Interval history: Patient seen and examined, remains intubated. Remains on full ventilatory support. Was taken off of sedation this morning for a retrial of weaning. No other adverse report given to me by nursing staff. Hospitalist Physical - Physical exam Narrative exam: VITAL SIGNS: Reviewed. GENERAL: Appears well-nourished and developed, intubated, sedated Vital signs as documented. HEAD: No signs of head trauma. EYES: Pupils are equal. EARS:UNABLE TO ACCESS MOUTH: ETT in place NECK: No adenopathy, no JVD. CHEST: Chest with diminished breath sounds bilaterally. No wheezes, rales, or rhonchi. CARDIAC: Regular rate and rhythm. S1 and S2, without murmurs, gallops, or rubs. VASCULAR: No Edema. Peripheral pulses normal and equal in all extremities. ABDOMEN: Soft, without detectable tenderness. No sign of distention. No rebound or guarding, and no masses palpated. Bowel Sounds normal. MUSCULOSKELETAL: Good range of motion of all major joints. Extremities without clubbing, cyanosis or edema. NEUROLOGIC EXAM: sedated. PSYCHIATRIC: Sedated SKIN: tattoe - Constitutional Vitals: Temp Pulse Resp BP Pulse Ox 98.5 F 86 10 L 157/86 91 05/15/16 16:00 05/15/16 17:00 05/15/16 17:00 05/15/16 17:00 05/15/16 17:00 Results - Labs CBC & Chem 7: 05/15/16 10:44 05/15/16 10:44 Labs: Laboratory Last Values WBC 10.8 K/mm3 (4.5-11.0) 05/15/16 10:44 RBC 3.93 M/mm3 (3.65-5.03) 05/15/16 10:44 Hgb 12.7 gm/dl (10.1-14.3) 05/15/16 10:44 Hct 38.3 % (30.3-42.9) 05/15/16 10:44 MCV 98 fl (79-97) H 05/15/16 10:44 MCH 32 pg (28-32) 05/15/16 10:44 MCHC 33 % (30-34) 05/15/16 10:44 RDW 14.2 % (13.2-15.2) 05/15/16 10:44 Plt Count 227 K/mm3 (140-440) 05/15/16 10:44 Lymph % (Auto) Dealership General Manager 05/13/16 21:25 Lymph # Dealership General Manager 05/13/16 21:25 Add Manual Diff Complete 05/13/16 21:25 Total Counted 100 05/13/16 21:25 Seg Neutrophils % Dealership General Manager 05/13/16 21:25 Seg Neuts % (Manual) 33.0 % (40.0-70.0) L 05/13/16 21:25 Band Neutrophils % 1.0 % 05/13/16 21:25 Lymphocytes % (Manual) 57.0 % (13.4-35.0) H 05/13/16 21:25 Reactive Lymphs % (Man) 0 % 05/13/16 21:25 Monocytes % (Manual) 6.0 % (0.0-7.3) 05/13/16 21:25 Eosinophils % (Manual) 2.0 % (0.0-4.3) 05/13/16 21:25 Basophils % (Manual) 1.0 % (0.0-1.8) 05/13/16 21:25 Metamyelocytes % 0 % 05/13/16 21:25 Myelocytes % 0 % 05/13/16 21:25 Promyelocytes % 0 % 05/13/16 21:25 Blast Cells % 0 % 05/13/16 21:25 Nucleated RBC % Not Reportable 05/13/16 21:25 Seg Neutrophils # Man 3.6 K/mm3 (1.8-7.7) 05/13/16 21:25 Band Neutrophils # 0.1 K/mm3 05/13/16 21:25 Lymphocytes # (Manual) 6.2 K/mm3 (1.2-5.4) H 05/13/16 21:25 Abs React Lymphs (Man) 0.0 K/mm3 05/13/16 21:25 Monocytes # (Manual) 0.6 K/mm3 (0.0-0.8) 05/13/16 21:25 Eosinophils # (Manual) 0.2 K/mm3 (0.0-0.4) 05/13/16 21:25 Basophils # (Manual) 0.1 K/mm3 (0.0-0.1) 05/13/16 21:25 Metamyelocytes # 0.0 K/mm3 05/13/16 21:25 Myelocytes # 0.0 K/mm3 05/13/16 21:25 Promyelocytes # 0.0 K/mm3 05/13/16 21:25 Blast Cells # 0.0 K/mm3 05/13/16 21:25 WBC Morphology Not Reportable 05/13/16 21:25 Hypersegmented Neuts Not Reportable 05/13/16 21:25 Hyposegmented Neuts Not Reportable 05/13/16 21:25 Hypogranular Neuts Not Reportable 05/13/16 21:25 Smudge Cells Not Reportable 05/13/16 21:25 Toxic Granulation Not Reportable 05/13/16 21:25 Toxic Vacuolation Not Reportable 05/13/16 21:25 Dohle Bodies Not Reportable 05/13/16 21:25 Pelger-Huet Anomaly Not Reportable 05/13/16 21:25 Michell Rods Not Reportable 05/13/16 21:25 Platelet Estimate Consistent w auto 05/13/16 21:25 Clumped Platelets Not Reportable 05/13/16 21:25 Plt Clumps, EDTA Not Reportable 05/13/16 21:25 Large Platelets Not Reportable 05/13/16 21:25 Giant Platelets Not Reportable 05/13/16 21:25 Platelet Satelliting Not Reportable 05/13/16 21:25 Plt Morphology Comment Not Reportable 05/13/16 21:25 RBC Morphology Not Reportable 05/13/16 21:25 Dimorphic RBCs Not Reportable 05/13/16 21:25 Polychromasia Not Reportable 05/13/16 21:25 Hypochromasia Not Reportable 05/13/16 21:25 Poikilocytosis 1+ 05/13/16 21:25 Anisocytosis Not Reportable 05/13/16 21:25 Microcytosis Not Reportable 05/13/16 21:25 Macrocytosis 1+ 05/13/16 21:25 Spherocytes Not Reportable 05/13/16 21:25 Pappenheimer Bodies Not Reportable 05/13/16 21:25 Sickle Cells Not Reportable 05/13/16 21:25 Target Cells Not Reportable 05/13/16 21:25 Tear Drop Cells Not Reportable 05/13/16 21:25 Ovalocytes Not Reportable 05/13/16 21:25 Helmet Cells Not Reportable 05/13/16 21:25 Kennedy-Poynette Bodies Not Reportable 05/13/16 21:25 Fowler Rings Not Reportable 05/13/16 21:25 Polk Cells Not Reportable 05/13/16 21:25 Bite Cells Not Reportable 05/13/16 21:25 Crenated Cell Not Reportable 05/13/16 21:25 Elliptocytes Not Reportable 05/13/16 21:25 Acanthocytes (Spur) Not Reportable 05/13/16 21:25 Rouleaux Not Reportable 05/13/16 21:25 Hemoglobin C Crystals Not Reportable 05/13/16 21:25 Schistocytes Not Reportable 05/13/16 21:25 Malaria parasites Not Reportable 05/13/16 21:25 Ky Bodies Not Reportable 05/13/16 21:25 Hem Pathologist Commnt No 05/13/16 21:25 D-Dimer 237.39 ng/mlDDU (0-234) H 05/13/16 21:25 POC ABG pH 7.340 (7.35-7.45) L 05/15/16 11:34 POC ABG pCO2 50.2 (35-45) H 05/15/16 11:34 POC ABG pO2 73 (80-105) L 05/15/16 11:34 POC ABG HCO3 27.1 05/15/16 11:34 POC ABG Total CO2 29 05/15/16 11:34 POC ABG O2 Sat 93 05/15/16 11:34 POC ABG Base Excess 1 05/15/16 11:34 FiO2 30 % 05/15/16 11:34 Sodium 135 mmol/L (137-145) L 05/15/16 10:44 Potassium 4.6 mmol/L (3.6-5.0) 05/15/16 10:44 Chloride 99.4 mmol/L (98-107) 05/15/16 10:44 Carbon Dioxide 24 mmol/L (22-30) 05/15/16 10:44 Anion Gap 16 mmol/L 05/15/16 10:44 BUN 19 mg/dL (7-17) H 05/15/16 10:44 Creatinine 0.7 mg/dL (0.7-1.2) 05/15/16 10:44 Estimated GFR > 60 ml/min 05/15/16 10:44 BUN/Creatinine Ratio 27.14 % 05/15/16 10:44 Glucose 157 mg/dL (65-100) H 05/15/16 10:44 POC Glucose 93 (70-105) 05/14/16 02:10 Calcium 9.1 mg/dL (8.4-10.2) 05/15/16 10:44 Total Bilirubin 0.4 mg/dL (0.1-1.2) 05/13/16 21:25 AST 31 units/L (5-40) 05/13/16 21:25 ALT 25 units/L (7-56) 05/13/16 21:25 Alkaline Phosphatase 78 units/L (35-129) 05/13/16 21:25 Total Creatine Kinase 292 units/L (30-135) H 05/14/16 17:41 CK-MB (CK-2) 2.8 ng/mL (0.0-4.0) 05/13/16 21:25 CK-MB (CK-2) Rel Index 0.8 (0-4) 05/13/16 21:25 Troponin T < 0.010 ng/mL (0.00-0.029) 05/13/16 21:25 Total Protein 7.5 g/dL (6.3-8.2) 05/13/16 21:25 Albumin 4.1 g/dL (3.9-5) 05/13/16 21:25 Albumin/Globulin Ratio 1.2 % 05/13/16 21:25 Urine Opiates Screen Presumptive negative 05/14/16 13:02 Urine Methadone Screen Presumptive negative 05/14/16 13:02 Ur Barbiturates Screen Presumptive negative 05/14/16 13:02 Ur Phencyclidine Scrn Presumptive negative 05/14/16 13:02 Ur Amphetamines Screen Presumptive negative 05/14/16 13:02 U Benzodiazepines Scrn Presumptive positive 05/14/16 13:02 Urine Cocaine Screen Presumptive positive 05/14/16 13:02 U Marijuana (THC) Screen Presumptive positive 05/14/16 13:02 Drugs of Abuse Note Disclamer 05/14/16 13:02
[2016-05-15] MEDS ORDERED: ZOFRAN IV PRN (20:45)
[2016-05-16] MEDS: HEPARIN SUB-Q SCH ×3 (06:01→22:24)
[2016-05-16 06:13] LABS: ISTAT Base Excess 7; ISTAT HCO3 31.1; ISTAT PCO2 47.8 (35-45); ISTAT PH 7.421 (7.35-7.45); ISTAT PO2 93 (80-105); ISTAT SO2 97; ISTAT TCO2 33
[2016-05-16] MEDS: DUONEB 0.5 MG-3 MG/3 ML SOLN IH SCH ×4 (08:00→19:48)
--- NOTE | 2016-05-16 10:13 | XRay Report ---
CHEST 1 VIEW INDICATION: Respiratory failure followup. COMPARISON: Yesterday. FINDINGS: Portable, frontal chest radiograph, 2:08 AM, 05/16/2016 reveals stable cardiomediastinal silhouette, supporting devices, appearance of the lungs and osseous structures, providing for the difference in technique. CONCLUSION: No significant interval change in left more than right basilar opacity. Dobbhoff tube again looped in the stomach with its tip directed back towards the GE junction with repositioning attempted to place its tip distally within the stomach, if so warranted. Thank you for the opportunity to participate in this patient's care.
[2016-05-16] MEDS: LEVAQUIN 750MG/150ML 750 MG/150 ML BAG IV SCH (10:14)
[2016-05-16] MEDS: PEPCID PO SCH ×2 (10:14→22:23)
[2016-05-16 10:36] LABS: ISTAT Base Excess 7; ISTAT HCO3 32.1; ISTAT PCO2 53.8 (35-45); ISTAT PH 7.385 (7.35-7.45); ISTAT PO2 57 (80-105); ISTAT SO2 88; ISTAT TCO2 34
--- NOTE | 2016-05-16 11:19 | Progress Note ---
Assessment and Plan - Patient Problems (1) Acute hypoxemic respiratory failure Current Visit: Yes Status: Acute Plan to address problem: - has passed SBT - Extubate - continue bronchodilators and pulmonary toilet - continue aspiration precautions/VAP bundles - wean oxygen to keep sats > 94% - bedside dysphagia screen +/- ST evaluation post extubation (2) Altered mental status Current Visit: Yes Status: Acute Qualifiers: Altered mental status type: A Coma depth: C Coma timing: C Plan to address problem: - resolved - follow clinically (CT edward negative) (3) COPD exacerbation Current Visit: Yes Status: Acute Plan to address problem: - continue systemic steroid taper - otherwise as for respiratory failure above (4) Diabetes Current Visit: Yes Status: Acute Qualifiers: Diabetes mellitus type: D Diabetes mellitus complication status: D Diabetes mellitus complication detail: D Diabetic retinopathy severity: D Proliferative retinopathy type: P Diabetes mellitus macular edema: D Diabetes mellitus senior care insulin use: D Laterality: L Chronic kidney disease stage: C Plan to address problem: - continue SSI (5) Discharge planning issues Current Visit: Yes Status: Acute Plan to address problem: ...extubate but observe slosely there after ....re-evaluate in am & prn ...30' CCT Subjective Date of service: 05/16/16 Principal diagnosis: Acute Hypoxemic Respiratory Failure Interval history: Seen and examined at bedside; 24 hour events reviewed; nursing and respiratory care staff consulted; no adverse overnight events reported to me; on PSV and tolerating much better today; A&O X 3; denies acute chest pains or increased SOB Objective Vital Signs - 12hr 05/15/16 05/16/16 05/16/16 23:51 00:00 00:36 Temperature 99.1 F Pulse Rate 74 78 Pulse Rate [ Anterior Bilateral Throughout] Pulse Rate [ Anterior Left Throughout] Pulse Rate [ From Monitor] Respiratory 14 Rate Respiratory Rate [Anterior Bilateral Throughout] Respiratory Rate [Anterior Left Throughout ] Blood Pressure 122/77 125/78 O2 Sat by Pulse 92 94 Oximetry 05/16/16 05/16/16 05/16/16 01:00 02:00 03:00 Temperature Pulse Rate 72 70 64 Pulse Rate [ Anterior Bilateral Throughout] Pulse Rate [ Anterior Left Throughout] Pulse Rate [ From Monitor] Respiratory 14 14 14 Rate Respiratory Rate [Anterior Bilateral Throughout] Respiratory Rate [Anterior Left Throughout ] Blood Pressure 144/85 118/71 128/81 O2 Sat by Pulse 93 93 95 Oximetry 05/16/16 05/16/16 05/16/16 04:00 04:23 05:00 Temperature 98.0 F Pulse Rate 63 63 Pulse Rate [ Anterior Bilateral Throughout] Pulse Rate [ Anterior Left Throughout] Pulse Rate [ From Monitor] Respiratory 14 14 Rate Respiratory Rate [Anterior Bilateral Throughout] Respiratory Rate [Anterior Left Throughout ] Blood Pressure 129/81 125/79 O2 Sat by Pulse 96 95 Oximetry 05/16/16 05/16/16 05/16/16 05:25 06:00 07:00 Temperature Pulse Rate 63 60 61 Pulse Rate [ Anterior Bilateral Throughout] Pulse Rate [ Anterior Left Throughout] Pulse Rate [ From Monitor] Respiratory 14 14 Rate Respiratory Rate [Anterior Bilateral Throughout] Respiratory Rate [Anterior Left Throughout ] Blood Pressure 125/79 148/77 141/85 O2 Sat by Pulse 97 96 96 Oximetry 05/16/16 05/16/16 05/16/16 07:55 08:00 08:02 Temperature 98.1 F Pulse Rate 71 68 58 L Pulse Rate [ 71 Anterior Bilateral Throughout] Pulse Rate [ Anterior Left Throughout] Pulse Rate [ 71 From Monitor] Respiratory 10 L 11 L Rate Respiratory 14 Rate [Anterior Bilateral Throughout] Respiratory Rate [Anterior Left Throughout ] Blood Pressure 137/86 152/86 O2 Sat by Pulse 95 94 95 Oximetry 05/16/16 05/16/16 05/16/16 08:09 09:00 09:48 Temperature Pulse Rate 59 L 68 Pulse Rate [ Anterior Bilateral Throughout] Pulse Rate [ 63 Anterior Left Throughout] Pulse Rate [ From Monitor] Respiratory 6 L 11 L Rate Respiratory Rate [Anterior Bilateral Throughout] Respiratory 11 L Rate [Anterior Left Throughout ] Blood Pressure 162/86 164/93 O2 Sat by Pulse 95 93 Oximetry 05/16/16 05/16/16 10:00 11:00 Temperature Pulse Rate 78 67 Pulse Rate [ Anterior Bilateral Throughout] Pulse Rate [ Anterior Left Throughout] Pulse Rate [ From Monitor] Respiratory 20 10 L Rate Respiratory Rate [Anterior Bilateral Throughout] Respiratory Rate [Anterior Left Throughout ] Blood Pressure 177/102 162/96 O2 Sat by Pulse 97 98 Oximetry Constitutional: no acute distress, alert Eyes: non-icteric ENT: oropharynx moist Neck: supple, no lymphadenopathy Effort: normal Ascultation: Bilateral: clear, diminished breath sounds Cardiovascular: regular rate and rhythm Gastrointestinal: normoactive bowel sounds, soft, non-tender, non-distended Integumentary: normal Extremities: no cyanosis, no edema, pulses normal, no ischemia or petechiae Neurologic: normal mental status, non-focal exam, pupils equal and round, motor strength normal and Psychiatric: mood appropriate, affect normal CBC and BMP: 05/15/16 10:44 05/15/16 10:44 ABG, PT/INR, D-dimer: ABG POC ABG pH 7.385 (7.35-7.45) 05/16/16 09:57 POC ABG pCO2 53.8 (35-45) H 05/16/16 09:57 POC ABG pO2 57 (80-105) L 05/16/16 09:57 POC ABG HCO3 32.1 05/16/16 09:57 POC ABG Total CO2 34 05/16/16 09:57 POC ABG O2 Sat 88 05/16/16 09:57 PT/INR, D-dimer D-Dimer 237.39 ng/mlDDU (0-234) H 05/13/16 21:25 Abnormal lab findings: Abnormal Labs 05/14/16 05/14/16 05/14/16 05:10 05:10 06:13 MCV 98 H D POC ABG pH 7.322 L POC ABG pCO2 POC ABG pO2 Sodium Carbon Dioxide 21 L BUN 20 H Glucose 116 H Total Creatine Kinase 05/14/16 05/15/16 05/15/16 17:41 05:41 10:44 MCV 98 H POC ABG pH POC ABG pCO2 POC ABG pO2 140 H Sodium Carbon Dioxide BUN Glucose Total Creatine Kinase 292 H 05/15/16 05/15/16 05/16/16 10:44 11:34 05:20 MCV POC ABG pH 7.340 L POC ABG pCO2 50.2 H 47.8 H POC ABG pO2 73 L Sodium 135 L Carbon Dioxide BUN 19 H Glucose 157 H Total Creatine Kinase 05/16/16 09:57 MCV POC ABG pH POC ABG pCO2 53.8 H POC ABG pO2 57 L Sodium Carbon Dioxide BUN Glucose Total Creatine Kinase Chest x-ray: image reviewed
--- NOTE | 2016-05-16 16:28 | Progress Note ---
Assessment and Plan Assessment and plan: 50 yo female the past medical history of COPD, hypertension, and non-insulin- dependent diabetes presents to the hospital with shortness of breath and altered mental status. EMS reports that at the scene stated the patient was short of breath and has used multiple albuterol inhaler treatments at the scene. Patient was unresponsive upon their arrival requiring bag valve mask ventilations. While she is in the ED she was intubated, mechanically ventilated and couldn't get any history. * Acute Encephalopathy * Co2 Narcosis * Acute Hypercapnic respiratory failure * Diabetes Mellitus type 2 * Polysubstance abuse * Metabolic Acidosis * Asthma Plan: * Patient is more awake and oriented it well with spontaneous trial. We will extubate today once okay with pulmonary. Patient was subsequently extubated and is doing well with transmitted to the medical floor. * continue empiric antibiotics * Continue sliding scale * Discussed with sap senior developer and also the family * Continue sodium bicarbonate * CTA Chest reviewed and is negative for pulmonary embolism The high probability of a clinically significant, sudden or life threatening deterioration of the [Respiratory] system(s) required my full and direct attention, intervention and personal management. The aggregate critical care time was [31] minutes. This time is in addition to time spent performing reported procedures but includes the following: [x] Data Review and interpretation [x] Patient assessment and monitoring of vital signs [x] Documentation [x] Medication orders and management History Interval history: Patient seen and examined, extubated today and doing well. No other adverse events reported. When I saw him this morning he was still intubated. Hospitalist Physical - Physical exam Narrative exam: VITAL SIGNS: Reviewed. GENERAL: Appears well-nourished and developed, intubated, sedated Vital signs as documented. HEAD: No signs of head trauma. EYES: Pupils are equal. Extraocular movements intact EARS: Appropriate hearing MOUTH: ETT in place NECK: No adenopathy, no JVD. CHEST: Chest with diminished breath sounds bilaterally. No wheezes, rales, or rhonchi. CARDIAC: Regular rate and rhythm. S1 and S2, without murmurs, gallops, or rubs. VASCULAR: No Edema. Peripheral pulses normal and equal in all extremities. ABDOMEN: Soft, without detectable tenderness. No sign of distention. No rebound or guarding, and no masses palpated. Bowel Sounds normal. MUSCULOSKELETAL: Good range of motion of all major joints. Extremities without clubbing, cyanosis or edema. NEUROLOGIC EXAM: Awake alert oriented 3 no focal neurological deficit. PSYCHIATRIC: Mood is normal SKIN: Tattoo - Constitutional Vitals: Temp Pulse Resp BP Pulse Ox 98.1 F 99 H 17 158/91 92 05/16/16 16:00 05/16/16 16:00 05/16/16 16:00 05/16/16 16:00 05/16/16 16:00 Results - Labs CBC & Chem 7: 05/15/16 10:44 05/15/16 10:44 Labs: Laboratory Last Values WBC 10.8 K/mm3 (4.5-11.0) 05/15/16 10:44 RBC 3.93 M/mm3 (3.65-5.03) 05/15/16 10:44 Hgb 12.7 gm/dl (10.1-14.3) 05/15/16 10:44 Hct 38.3 % (30.3-42.9) 05/15/16 10:44 MCV 98 fl (79-97) H 05/15/16 10:44 MCH 32 pg (28-32) 05/15/16 10:44 MCHC 33 % (30-34) 05/15/16 10:44 RDW 14.2 % (13.2-15.2) 05/15/16 10:44 Plt Count 227 K/mm3 (140-440) 05/15/16 10:44 Lymph % (Auto) Ecommerce Manager 05/13/16 21:25 Lymph # Ecommerce Manager 05/13/16 21:25 Add Manual Diff Complete 05/13/16 21:25 Total Counted 100 05/13/16 21:25 Seg Neutrophils % Ecommerce Manager 05/13/16 21:25 Seg Neuts % (Manual) 33.0 % (40.0-70.0) L 05/13/16 21:25 Band Neutrophils % 1.0 % 05/13/16 21:25 Lymphocytes % (Manual) 57.0 % (13.4-35.0) H 05/13/16 21:25 Reactive Lymphs % (Man) 0 % 05/13/16 21:25 Monocytes % (Manual) 6.0 % (0.0-7.3) 05/13/16 21:25 Eosinophils % (Manual) 2.0 % (0.0-4.3) 05/13/16 21:25 Basophils % (Manual) 1.0 % (0.0-1.8) 05/13/16 21:25 Metamyelocytes % 0 % 05/13/16 21:25 Myelocytes % 0 % 05/13/16 21:25 Promyelocytes % 0 % 05/13/16 21:25 Blast Cells % 0 % 05/13/16 21:25 Nucleated RBC % Not Reportable 05/13/16 21:25 Seg Neutrophils # Man 3.6 K/mm3 (1.8-7.7) 05/13/16 21:25 Band Neutrophils # 0.1 K/mm3 05/13/16 21:25 Lymphocytes # (Manual) 6.2 K/mm3 (1.2-5.4) H 05/13/16 21:25 Abs React Lymphs (Man) 0.0 K/mm3 05/13/16 21:25 Monocytes # (Manual) 0.6 K/mm3 (0.0-0.8) 05/13/16 21:25 Eosinophils # (Manual) 0.2 K/mm3 (0.0-0.4) 05/13/16 21:25 Basophils # (Manual) 0.1 K/mm3 (0.0-0.1) 05/13/16 21:25 Metamyelocytes # 0.0 K/mm3 05/13/16 21:25 Myelocytes # 0.0 K/mm3 05/13/16 21:25 Promyelocytes # 0.0 K/mm3 05/13/16 21:25 Blast Cells # 0.0 K/mm3 05/13/16 21:25 WBC Morphology Not Reportable 05/13/16 21:25 Hypersegmented Neuts Not Reportable 05/13/16 21:25 Hyposegmented Neuts Not Reportable 05/13/16 21:25 Hypogranular Neuts Not Reportable 05/13/16 21:25 Smudge Cells Not Reportable 05/13/16 21:25 Toxic Granulation Not Reportable 05/13/16 21:25 Toxic Vacuolation Not Reportable 05/13/16 21:25 Dohle Bodies Not Reportable 05/13/16 21:25 Pelger-Huet Anomaly Not Reportable 05/13/16 21:25 Michell Rods Not Reportable 05/13/16 21:25 Platelet Estimate Consistent w auto 05/13/16 21:25 Clumped Platelets Not Reportable 05/13/16 21:25 Plt Clumps, EDTA Not Reportable 05/13/16 21:25 Large Platelets Not Reportable 05/13/16 21:25 Giant Platelets Not Reportable 05/13/16 21:25 Platelet Satelliting Not Reportable 05/13/16 21:25 Plt Morphology Comment Not Reportable 05/13/16 21:25 RBC Morphology Not Reportable 05/13/16 21:25 Dimorphic RBCs Not Reportable 05/13/16 21:25 Polychromasia Not Reportable 05/13/16 21:25 Hypochromasia Not Reportable 05/13/16 21:25 Poikilocytosis 1+ 05/13/16 21:25 Anisocytosis Not Reportable 05/13/16 21:25 Microcytosis Not Reportable 05/13/16 21:25 Macrocytosis 1+ 05/13/16 21:25 Spherocytes Not Reportable 05/13/16 21:25 Pappenheimer Bodies Not Reportable 05/13/16 21:25 Sickle Cells Not Reportable 05/13/16 21:25 Target Cells Not Reportable 05/13/16 21:25 Tear Drop Cells Not Reportable 05/13/16 21:25 Ovalocytes Not Reportable 05/13/16 21:25 Helmet Cells Not Reportable 05/13/16 21:25 Kennedy-[place] Bodies Not Reportable 05/13/16 21:25 [place] Rings Not Reportable 05/13/16 21:25 [place] Cells Not Reportable 05/13/16 21:25 Bite Cells Not Reportable 05/13/16 21:25 Crenated Cell Not Reportable 05/13/16 21:25 Elliptocytes Not Reportable 05/13/16 21:25 Acanthocytes (Spur) Not Reportable 05/13/16 21:25 Rouleaux Not Reportable 05/13/16 21:25 Hemoglobin C Crystals Not Reportable 05/13/16 21:25 Schistocytes Not Reportable 05/13/16 21:25 Malaria parasites Not Reportable 05/13/16 21:25 Ky Bodies Not Reportable 05/13/16 21:25 Hem Pathologist Commnt No 05/13/16 21:25 D-Dimer 237.39 ng/mlDDU (0-234) H 05/13/16 21:25 POC ABG pH 7.385 (7.35-7.45) 05/16/16 09:57 POC ABG pCO2 53.8 (35-45) H 05/16/16 09:57 POC ABG pO2 57 (80-105) L 05/16/16 09:57 POC ABG HCO3 32.1 05/16/16 09:57 POC ABG Total CO2 34 05/16/16 09:57 POC ABG O2 Sat 88 05/16/16 09:57 POC ABG Base Excess 7 05/16/16 09:57 FiO2 30 % 05/16/16 09:57 Sodium 135 mmol/L (137-145) L 05/15/16 10:44 Potassium 4.6 mmol/L (3.6-5.0) 05/15/16 10:44 Chloride 99.4 mmol/L (98-107) 05/15/16 10:44 Carbon Dioxide 24 mmol/L (22-30) 05/15/16 10:44 Anion Gap 16 mmol/L 05/15/16 10:44 BUN 19 mg/dL (7-17) H 05/15/16 10:44 Creatinine 0.7 mg/dL (0.7-1.2) 05/15/16 10:44 Estimated GFR > 60 ml/min 05/15/16 10:44 BUN/Creatinine Ratio 27.14 % 05/15/16 10:44 Glucose 157 mg/dL (65-100) H 05/15/16 10:44 POC Glucose 93 (70-105) 05/14/16 02:10 Calcium 9.1 mg/dL (8.4-10.2) 05/15/16 10:44 Total Bilirubin 0.4 mg/dL (0.1-1.2) 05/13/16 21:25 AST 31 units/L (5-40) 05/13/16 21:25 ALT 25 units/L (7-56) 05/13/16 21:25 Alkaline Phosphatase 78 units/L (35-129) 05/13/16 21:25 Total Creatine Kinase 292 units/L (30-135) H 05/14/16 17:41 CK-MB (CK-2) 2.8 ng/mL (0.0-4.0) 05/13/16 21:25 CK-MB (CK-2) Rel Index 0.8 (0-4) 05/13/16 21: Troponin T < 0.010 ng/mL (0.00-0.029) 05/13/16 21:25 Total Protein 7.5 g/dL (6.3-8.2) 05/13/16 21: Albumin 4.1 g/dL (3.9-5) 05/13/16 21: Albumin/Globulin Ratio 1.2 % 05/13/16 21:25 Urine Opiates Screen Presumptive negative 05/14/16 13:02 Urine Methadone Screen Presumptive negative 05/14/16 13:02 Ur Barbiturates Screen Presumptive negative 05/14/16 13:02 Ur Phencyclidine Scrn Presumptive negative 05/14/16 13:02 Ur Amphetamines Screen Presumptive negative 05/14/16 13:02 U Benzodiazepines Scrn Presumptive positive 05/14/16 13:02 Urine Cocaine Screen Presumptive positive 05/14/16 13:02 U Marijuana (THC) Screen Presumptive positive 05/14/16 13:02 Drugs of Abuse Note Disclamer 05/14/16 13:02 - Imaging and Cardiology Chest x-ray: image reviewed (no change in ITS pathology noted next 4 right basilar opacity)
[2016-05-16] MEDS ORDERED: DILAUDID IV PRN (20:04)
[2016-05-16] MEDS ORDERED: ZOFRAN IV PRN (20:04)
[2016-05-17] MEDS: HEPARIN SUB-Q SCH ×3 (04:59→21:21)
[2016-05-17] MEDS: DUONEB 0.5 MG-3 MG/3 ML SOLN IH SCH ×4 (07:56→20:54)
--- NOTE | 2016-05-17 11:24 | Progress Note ---
Assessment and Plan - Patient Problems (1) Acute hypoxemic respiratory failure Current Visit: Yes Status: Acute Plan to address problem: - Extubated and doing well - continue bronchodilators and pulmonary toilet - continue aspiration precautions - continue to wean oxygen to keep sats > 94% (2) Altered mental status Current Visit: Yes Status: Acute Qualifiers: Altered mental status type: A Coma depth: C Coma timing: C Plan to address problem: - resolved - follow clinically (CT edward negative) (3) COPD exacerbation Current Visit: Yes Status: Acute Plan to address problem: - continue systemic steroid taper - otherwise as for respiratory failure above (4) Diabetes Current Visit: Yes Status: Acute Qualifiers: Diabetes mellitus type: D Diabetes mellitus complication status: D Diabetes mellitus complication detail: D Diabetic retinopathy severity: D Proliferative retinopathy type: P Diabetes mellitus macular edema: D Diabetes mellitus residential insulin use: D Laterality: L Chronic kidney disease stage: C Plan to address problem: - continue SSI (5) Discharge planning issues Current Visit: Yes Status: Acute Plan to address problem: - transfer out of ICU ok at this point Subjective Date of service: 05/17/16 Principal diagnosis: Acute Hypoxemic Respiratory Failure Interval history: Seen and examined at bedside; 24 hour events reviewed; nursing and respiratory care staff consulted; no adverse overnight events reported to me; resting peacefully; denies acute chest pains or increased SOB; No N/V/F/C Objective Vital Signs - 12hr 05/17/16 05/17/16 05/17/16 00:00 00:25 01:00 Temperature 98.5 F Pulse Rate 76 76 88 Pulse Rate [ Anterior Bilateral Throughout] Respiratory 14 23 18 Rate Respiratory Rate [Anterior Bilateral Throughout] Respiratory Rate [Chest] Blood Pressure 134/77 134/77 O2 Sat by Pulse 94 95 97 Oximetry 05/17/16 05/17/16 05/17/16 02:00 03:00 04:00 Temperature Pulse Rate 68 69 69 Pulse Rate [ Anterior Bilateral Throughout] Respiratory 13 11 L 13 Rate Respiratory Rate [Anterior Bilateral Throughout] Respiratory Rate [Chest] Blood Pressure 134/77 134/77 134/80 O2 Sat by Pulse 98 97 94 Oximetry 05/17/16 05/17/16 05/17/16 04:15 05:00 06:00 Temperature 98.5 F Pulse Rate 69 55 L 62 Pulse Rate [ Anterior Bilateral Throughout] Respiratory 12 10 L 14 Rate Respiratory Rate [Anterior Bilateral Throughout] Respiratory Rate [Chest] Blood Pressure 134/80 134/80 134/80 O2 Sat by Pulse 96 93 93 Oximetry 05/17/16 05/17/16 05/17/16 07:00 07:56 08:00 Temperature 98.5 F Pulse Rate 67 62 Pulse Rate [ 67 Anterior Bilateral Throughout] Respiratory 12 12 Rate Respiratory 18 Rate [Anterior Bilateral Throughout] Respiratory Rate [Chest] Blood Pressure 134/80 134/80 O2 Sat by Pulse 89 96 99 Oximetry 05/17/16 05/17/16 09:00 10:00 Temperature Pulse Rate 97 H 91 H Pulse Rate [ Anterior Bilateral Throughout] Respiratory 13 15 Rate Respiratory Rate [Anterior Bilateral Throughout] Respiratory 12 Rate [Chest] Blood Pressure 134/80 124/81 O2 Sat by Pulse 90 92 Oximetry Constitutional: no acute distress, alert Eyes: non-icteric ENT: oropharynx moist Neck: supple, no lymphadenopathy Effort: normal Ascultation: Bilateral: clear, diminished breath sounds Cardiovascular: regular rate and rhythm Gastrointestinal: normoactive bowel sounds, soft, non-tender, non-distended Integumentary: normal Extremities: no cyanosis, no edema, pulses normal, no ischemia or petechiae Neurologic: normal mental status, non-focal exam, pupils equal and round, motor strength normal and Psychiatric: mood appropriate, affect normal CBC and BMP: 05/15/16 10:44 05/15/16 10:44 ABG, PT/INR, D-dimer: ABG POC ABG pH 7.385 (7.35-7.45) 05/16/16 09:57 POC ABG pCO2 53.8 (35-45) H 05/16/16 09:57 POC ABG pO2 57 (80-105) L 05/16/16 09:57 POC ABG HCO3 32.1 05/16/16 09:57 POC ABG Total CO2 34 05/16/16 09:57 POC ABG O2 Sat 88 05/16/16 09:57 PT/INR, D-dimer D-Dimer 237.39 ng/mlDDU (0-234) H 05/13/16 21:25 Abnormal lab findings: Abnormal Labs 05/14/16 05/14/16 05/14/16 05:10 05:10 06:13 MCV 98 H D POC ABG pH 7.322 L POC ABG pCO2 POC ABG pO2 Sodium Carbon Dioxide 21 L BUN 20 H Glucose 116 H Total Creatine Kinase 05/14/16 05/15/16 05/15/16 17:41 05:41 10:44 MCV 98 H POC ABG pH POC ABG pCO2 POC ABG pO2 140 H Sodium Carbon Dioxide BUN Glucose Total Creatine Kinase 292 H 05/15/16 05/15/16 05/16/16 10:44 11:34 05:20 MCV POC ABG pH 7.340 L POC ABG pCO2 50.2 H 47.8 H POC ABG pO2 73 L Sodium 135 L Carbon Dioxide BUN 19 H Glucose 157 H Total Creatine Kinase 05/16/16 09:57 MCV POC ABG pH POC ABG pCO2 53.8 H POC ABG pO2 57 L Sodium Carbon Dioxide BUN Glucose Total Creatine Kinase
[2016-05-17] MEDS: PEPCID PO SCH ×2 (13:00→21:21)
[2016-05-17 15:32] LABS: Basophils % (Auto) 0.1 % (0.0-1.8); Hematocrit 42.6 % (30.3-42.9); Hemoglobin 14.1 gm/dl (10.1-14.3); Mean Corpuscular HGB Conc 33 % (30-34); Mean Corpuscular Hemoglobin 32 pg (28-32); Mean Corpuscular Volume 97 fl (79-97); Platelet Count 244 K/mm3 (140-440); Red Blood Count 4.41 M/mm3 (3.65-5.03); Red Cell Distribution Width 13.6 % (13.2-15.2)
--- NOTE | 2016-05-17 15:38 | Progress Note ---
Assessment and Plan Assessment and plan: 50 yo female the past medical history of COPD, hypertension, and non-insulin- dependent diabetes presents to the hospital with shortness of breath and altered mental status. EMS reports that at the scene stated the patient was short of breath and has used multiple albuterol inhaler treatments at the scene. Patient was unresponsive upon their arrival requiring bag valve mask ventilations. While she is in the ED she was intubated, mechanically ventilated and couldn't get any history. * Acute Encephalopathy * Co2 Narcosis * Acute Hypercapnic respiratory failure * Diabetes Mellitus type 2 * Polysubstance abuse * Metabolic Acidosis * Asthma Plan: * Days of mechanical ventilation. Desats to the low 70s when oxygen was taken off. We'll continue current therapy with nebulizers and steroids. Awaiting bed in telemetry for transfer orders are already in * Extensive counseling provided about substance abuse. * Case discussed with patient in detail. * Continue sodium bicarbonate * CTA Chest reviewed and is negative for pulmonary embolism * Discontinue Rodríguez * DVT and GI prophylaxis History Interval history: Patient seen and examined, continues off ventilators but unable to wean off oxygen at this time. No other adverse events reported. Denies any chest pain nausea vomiting and diarrhea. Hospitalist Physical - Physical exam Narrative exam: VITAL SIGNS: Reviewed. GENERAL: Appears well-nourished and developed, sedated Vital signs as documented. HEAD: No signs of head trauma. EYES: Pupils are equal. Extraocular movements intact EARS: Appropriate hearing MOUTH: Oropharyngeal normal. NECK: No adenopathy, no JVD. CHEST: Chest with diminished breath sounds bilaterally. No wheezes, rales, or rhonchi. CARDIAC: Regular rate and rhythm. S1 and S2, without murmurs, gallops, or rubs. VASCULAR: No Edema. Peripheral pulses normal and equal in all extremities. ABDOMEN: Soft, without detectable tenderness. No sign of distention. No rebound or guarding, and no masses palpated. Bowel Sounds normal. MUSCULOSKELETAL: Good range of motion of all major joints. Extremities without clubbing, cyanosis or edema. NEUROLOGIC EXAM: Awake alert oriented 3 no focal neurological deficit. PSYCHIATRIC: Mood is normal SKIN: Tattoo - Constitutional Vitals: Temp Pulse Resp BP Pulse Ox 97.5 F L 87 14 127/81 93 05/17/16 12:00 05/17/16 14:00 05/17/16 14:00 05/17/16 14:00 05/17/16 14:00 Results - Labs CBC & Chem 7: 05/17/16 15:10 05/15/16 10:44 Labs: Laboratory Last Values WBC 10.0 K/mm3 (4.5-11.0) 05/17/16 15:10 RBC 4.41 M/mm3 (3.65-5.03) 05/17/16 15:10 Hgb 14.1 gm/dl (10.1-14.3) 05/17/16 15:10 Hct 42.6 % (30.3-42.9) 05/17/16 15:10 MCV 97 fl (79-97) 05/17/16 15:10 MCH 32 pg (28-32) 05/17/16 15:10 MCHC 33 % (30-34) 05/17/16 15:10 RDW 13.6 % (13.2-15.2) 05/17/16 15:10 Plt Count 244 K/mm3 (140-440) 05/17/16 15:10 Lymph % (Auto) 11.1 % (13.4-35.0) L 05/17/16 15:10 [place] % (Auto) 12.3 % (0.0-7.3) H 05/17/16 15:10 Eos % (Auto) 0.0 % (0.0-4.3) 05/17/16 15:10 Baso % (Auto) 0.1 % (0.0-1.8) 05/17/16 15:10 Lymph # 1.1 K/mm3 (1.2-5.4) L 05/17/16 15:10 [place] # 1.2 K/mm3 (0.0-0.8) H 05/17/16 15:10 Eos # 0.0 K/mm3 (0.0-0.4) 05/17/16 15:10 Baso # 0.0 K/mm3 (0.0-0.1) 05/17/16 15:10 Add Manual Diff Complete 05/13/16 21:25 Total Counted 100 05/13/16 21:25 Seg Neutrophils % 76.5 % (40.0-70.0) H 05/17/16 15:10 Seg Neuts % (Manual) 33.0 % (40.0-70.0) L 05/13/16 21:25 Band Neutrophils % 1.0 % 05/13/16 21:25 Lymphocytes % (Manual) 57.0 % (13.4-35.0) H 05/13/16 21:25 Reactive Lymphs % (Man) 0 % 05/13/16 21:25 Monocytes % (Manual) 6.0 % (0.0-7.3) 05/13/16 21:25 Eosinophils % (Manual) 2.0 % (0.0-4.3) 05/13/16 21:25 Basophils % (Manual) 1.0 % (0.0-1.8) 05/13/16 21:25 Metamyelocytes % 0 % 05/13/16 21: Myelocytes % 0 % 05/13/16 21: Promyelocytes % 0 % 05/13/16 21:25 Blast Cells % 0 % 05/13/16 21:25 Nucleated RBC % Not Reportable 05/13/16 21:25 Seg Neutrophils # 7.6 K/mm3 (1.8-7.7) 05/17/16 15:10 Seg Neutrophils # Man 3.6 K/mm3 (1.8-7.7) 05/13/16 21:25 Band Neutrophils # 0.1 K/mm3 05/13/16 21:25 Lymphocytes # (Manual) 6.2 K/mm3 (1.2-5.4) H 05/13/16 21:25 Abs React Lymphs (Man) 0.0 K/mm3 05/13/16 21:25 Monocytes # (Manual) 0.6 K/mm3 (0.0-0.8) 05/13/16 21:25 Eosinophils # (Manual) 0.2 K/mm3 (0.0-0.4) 05/13/16 21:25 Basophils # (Manual) 0.1 K/mm3 (0.0-0.1) 05/13/16 21:25 Metamyelocytes # 0.0 K/mm3 05/13/16 21:25 Myelocytes # 0.0 K/mm3 05/13/16 21:25 Promyelocytes # 0.0 K/mm3 05/13/16 21:25 Blast Cells # 0.0 K/mm3 05/13/16 21:25 WBC Morphology Not Reportable 05/13/16 21:25 Hypersegmented Neuts Not Reportable 05/13/16 21:25 Hyposegmented Neuts Not Reportable 05/13/16 21:25 Hypogranular Neuts Not Reportable 05/13/16 21:25 Smudge Cells Not Reportable 05/13/16 21:25 Toxic Granulation Not Reportable 05/13/16 21:25 Toxic Vacuolation Not Reportable 05/13/16 21:25 Dohle Bodies Not Reportable 05/13/16 21:25 Pelger-Huet Anomaly Not Reportable 05/13/16 21:25 Michell Rods Not Reportable 05/13/16 21:25 Platelet Estimate Consistent w auto 05/13/16 21:25 Clumped Platelets Not Reportable 05/13/16 21:25 Plt Clumps, EDTA Not Reportable 05/13/16 21:25 Large Platelets Not Reportable 05/13/16 21:25 Giant Platelets Not Reportable 05/13/16 21:25 Platelet Satelliting Not Reportable 05/13/16 21:25 Plt Morphology Comment Not Reportable 05/13/16 21:25 RBC Morphology Not Reportable 05/13/16 21:25 Dimorphic RBCs Not Reportable 05/13/16 21:25 Polychromasia Not Reportable 05/13/16 21:25 Hypochromasia Not Reportable 05/13/16 21:25 Poikilocytosis 1+ 05/13/16 21:25 Anisocytosis Not Reportable 05/13/16 21:25 Microcytosis Not Reportable 05/13/16 21:25 Macrocytosis 1+ 05/13/16 21:25 Spherocytes Not Reportable 05/13/16 21:25 Pappenheimer Bodies Not Reportable 05/13/16 21:25 Sickle Cells Not Reportable 05/13/16 21:25 Target Cells Not Reportable 05/13/16 21:25 Tear Drop Cells Not Reportable 05/13/16 21:25 Ovalocytes Not Reportable 05/13/16 21:25 Helmet Cells Not Reportable 05/13/16 21:25 Kennedy-[place] Neck Bodies Not Reportable 05/13/16 21:25 [place] Rings Not Reportable 05/13/16 21:25 [place] Cells Not Reportable 05/13/16 21:25 Bite Cells Not Reportable 05/13/16 21:25 Crenated Cell Not Reportable 05/13/16 21:25 Elliptocytes Not Reportable 05/13/16 21:25 Acanthocytes (Spur) Not Reportable 05/13/16 21:25 Rouleaux Not Reportable 05/13/16 21:25 Hemoglobin C Crystals Not Reportable 05/13/16 21:25 Schistocytes Not Reportable 05/13/16 21:25 Malaria parasites Not Reportable 05/13/16 21:25 Ky Bodies Not Reportable 05/13/16 21:25 Hem Pathologist Commnt No 05/13/16 21:25 D-Dimer 237.39 ng/mlDDU (0-234) H 05/13/16 21:25 POC ABG pH 7.385 (7.35-7.45) 05/16/16 09:57 POC ABG pCO2 53.8 (35-45) H 05/16/16 09:57 POC ABG pO2 57 (80-105) L 05/16/16 09:57 POC ABG HCO3 32.1 05/16/16 09:57 POC ABG Total CO2 34 05/16/16 09:57 POC ABG O2 Sat 88 05/16/16 09:57 POC ABG Base Excess 7 05/16/16 09:57 FiO2 30 % 05/16/16 09:57 Sodium 135 mmol/L (137-145) L 05/15/16 10:44 Potassium 4.6 mmol/L (3.6-5.0) 05/15/16 10:44 Chloride 99.4 mmol/L (98-107) 05/15/16 10:44 Carbon Dioxide 24 mmol/L (22-30) 05/15/16 10:44 Anion Gap 16 mmol/L 05/15/16 10:44 BUN 19 mg/dL (7-17) H 05/15/16 10:44 Creatinine 0.7 mg/dL (0.7-1.2) 05/15/16 10:44 Estimated GFR > 60 ml/min 05/15/16 10:44 BUN/Creatinine Ratio 27.14 % 05/15/16 10:44 Glucose 157 mg/dL (65-100) H 05/15/16 10:44 POC Glucose 93 (70-105) 05/14/16 02:10 Calcium 9.1 mg/dL (8.4-10.2) 05/15/16 10:44 Total Bilirubin 0.4 mg/dL (0.1-1.2) 05/13/16 21:25 AST 31 units/L (5-40) 05/13/16 21:25 ALT 25 units/L (7-56) 05/13/16 21:25 Alkaline Phosphatase 78 units/L (35-129) 05/13/16 21:25 Total Creatine Kinase 292 units/L (30-135) H 05/14/16 17:41 CK-MB (CK-2) 2.8 ng/mL (0.0-4.0) 05/13/16 21:25 CK-MB (CK-2) Rel Index 0.8 (0-4) 05/13/16 21:25 Troponin T < 0.010 ng/mL (0.00-0.029) 05/13/16 21:25 Total Protein 7.5 g/dL (6.3-8.2) 05/13/16 21:25 Albumin 4.1 g/dL (3.9-5) 05/13/16 21:25 Albumin/Globulin Ratio 1.2 % 05/13/16 21:25 Urine Opiates Screen Presumptive negative 05/14/16 13:02 Urine Methadone Screen Presumptive negative 05/14/16 13:02 Ur Barbiturates Screen Presumptive negative 05/14/16 13:02 Ur Phencyclidine Scrn Presumptive negative 05/14/16 13:02 Ur Amphetamines Screen Presumptive negative 05/14/16 13:02 U Benzodiazepines Scrn Presumptive positive 05/14/16 13:02 Urine Cocaine Screen Presumptive positive 05/14/16 13:02 U Marijuana (THC) Screen Presumptive positive 05/14/16 13:02 Drugs of Abuse Note Disclamer 05/14/16 13:02
[2016-05-17 15:46] LABS: BUN/Creatinine Ratio 31.25; Blood Urea Nitrogen 25 mg/dL (7-17); Calcium 9.7 mg/dL (8.4-10.2); Carbon Dioxide 31 mmol/L (22-30); Chloride 95.3 mmol/L (98-107); Glucose 106 mg/dL (65-100); Potassium 4.8 mmol/L (3.6-5.0); Sodium 140 mmol/L (137-145)
[2016-05-17 15:55] LABS: Anion Gap 19 mmol/L
[2016-05-17] MEDS: PERCOCET 5/325 PO PRN (21:21)
[2016-05-18] MEDS: HEPARIN SUB-Q SCH ×3 (06:02→21:40)
[2016-05-18] MEDS: DUONEB 0.5 MG-3 MG/3 ML SOLN IH SCH ×3 (07:40→19:32)
[2016-05-18] MEDS: PEPCID PO SCH ×2 (11:58→21:39)
--- NOTE | 2016-05-18 13:29 | Event Note ---
Date: 05/18/16
[2016-05-18] MEDS ORDERED: PROAIR IH PRN (16:39)
--- NOTE | 2016-05-18 16:42 | Progress Note ---
Assessment and Plan Assessment and plan: 50 yo female the past medical history of COPD, hypertension, and non-insulin- dependent diabetes presents to the hospital with shortness of breath and altered mental status. EMS reports that at the scene stated the patient was short of breath and has used multiple albuterol inhaler treatments at the scene. Patient was unresponsive upon their arrival requiring bag valve mask ventilations. While she is in the ED she was intubated, mechanically ventilated and couldn't get any history. * Acute Encephalopathy * Co2 Narcosis * Acute Hypercapnic and hypoxic respiratory failure * Diabetes Mellitus type 2 * Polysubstance abuse * Metabolic Acidosis-resolved * Asthma with exacerbation Plan: * Continue nebulizers and steroids were added when necessary albuterol inhaler * Continue attempt to wean off of oxygen * Anticipate discharge in a.m. if symptoms continue to improve * Extensive counseling provided about substance abuse. * Case discussed with patient in detail. * Continue sodium bicarbonate * CTA Chest reviewed and is negative for pulmonary embolism * DVT and GI prophylaxis History Interval history: Patient seen and examined, reports shortness of breath with exertion but improving. Reports some right rib pain denies fall. Hospitalist Physical - Physical exam Narrative exam: VITAL SIGNS: Reviewed. GENERAL: Appears well-nourished and developed, sedated Vital signs as documented. HEAD: No signs of head trauma. EYES: Pupils are equal. Extraocular movements intact EARS: Appropriate hearing MOUTH: Oropharyngeal normal. NECK: No adenopathy, no JVD. CHEST: Chest with diminished breath sounds bilaterally. No wheezes, rales, or rhonchi. CARDIAC: Regular rate and rhythm. S1 and S2, without murmurs, gallops, or rubs. VASCULAR: No Edema. Peripheral pulses normal and equal in all extremities. ABDOMEN: Soft, without detectable tenderness. No sign of distention. No rebound or guarding, and no masses palpated. Bowel Sounds normal. MUSCULOSKELETAL: Good range of motion of all major joints. Extremities without clubbing, cyanosis or edema. NEUROLOGIC EXAM: Awake alert oriented 3 no focal neurological deficit. PSYCHIATRIC: Mood is normal SKIN: Tattoo - Constitutional Vitals: Temp Pulse Resp BP Pulse Ox 98.5 F 82 18 153/101 95 05/18/16 12:00 05/18/16 14:07 05/18/16 14:07 05/18/16 12:00 05/18/16 12:00 Results - Labs CBC & Chem 7: 05/17/16 15:10 05/17/16 15:10 Labs: Laboratory Last Values WBC 10.0 K/mm3 (4.5-11.0) 05/17/16 15:10 RBC 4.41 M/mm3 (3.65-5.03) 05/17/16 15:10 Hgb 14.1 gm/dl (10.1-14.3) 05/17/16 15:10 Hct 42.6 % (30.3-42.9) 05/17/16 15:10 MCV 97 fl (79-97) 05/17/16 15:10 MCH 32 pg (28-32) 05/17/16 15:10 MCHC 33 % (30-34) 05/17/16 15:10 RDW 13.6 % (13.2-15.2) 05/17/16 15:10 Plt Count 244 K/mm3 (140-440) 05/17/16 15:10 Lymph % (Auto) 11.1 % (13.4-35.0) L 05/17/16 15:10 [place] % (Auto) 12.3 % (0.0-7.3) H 05/17/16 15:10 Eos % (Auto) 0.0 % (0.0-4.3) 05/17/16 15:10 Baso % (Auto) 0.1 % (0.0-1.8) 05/17/16 15:10 Lymph # 1.1 K/mm3 (1.2-5.4) L 05/17/16 15:10 [place] # 1.2 K/mm3 (0.0-0.8) H 05/17/16 15:10 Eos # 0.0 K/mm3 (0.0-0.4) 05/17/16 15:10 Baso # 0.0 K/mm3 (0.0-0.1) 05/17/16 15:10 Add Manual Diff Complete 05/13/16 21:25 Total Counted 100 05/13/16 21:25 Seg Neutrophils % 76.5 % (40.0-70.0) H 05/17/16 15:10 Seg Neuts % (Manual) 33.0 % (40.0-70.0) L 05/13/16 21:25 Band Neutrophils % 1.0 % 05/13/16 21:25 Lymphocytes % (Manual) 57.0 % (13.4-35.0) H 05/13/16 21:25 Reactive Lymphs % (Man) 0 % 05/13/16 21:25 Monocytes % (Manual) 6.0 % (0.0-7.3) 05/13/16 21:25 Eosinophils % (Manual) 2.0 % (0.0-4.3) 05/13/16 21:25 Basophils % (Manual) 1.0 % (0.0-1.8) 05/13/16 21:25 Metamyelocytes % 0 % 05/13/16 21:25 Myelocytes % 0 % 05/13/16 21: Promyelocytes % 0 % 05/13/16 21:25 Blast Cells % 0 % 05/13/16 21:25 Nucleated RBC % Not Reportable 05/13/16 21:25 Seg Neutrophils # 7.6 K/mm3 (1.8-7.7) 05/17/16 15:10 Seg Neutrophils # Man 3.6 K/mm3 (1.8-7.7) 05/13/16 21:25 Band Neutrophils # 0.1 K/mm3 05/13/16 21:25 Lymphocytes # (Manual) 6.2 K/mm3 (1.2-5.4) H 05/13/16 21:25 Abs React Lymphs (Man) 0.0 K/mm3 05/13/16 21:25 Monocytes # (Manual) 0.6 K/mm3 (0.0-0.8) 05/13/16 21:25 Eosinophils # (Manual) 0.2 K/mm3 (0.0-0.4) 05/13/16 21:25 Basophils # (Manual) 0.1 K/mm3 (0.0-0.1) 05/13/16 21:25 Metamyelocytes # 0.0 K/mm3 05/13/16 21:25 Myelocytes # 0.0 K/mm3 05/13/16 21:25 Promyelocytes # 0.0 K/mm3 05/13/16 21:25 Blast Cells # 0.0 K/mm3 05/13/16 21:25 WBC Morphology Not Reportable 05/13/16 21:25 Hypersegmented Neuts Not Reportable 05/13/16 21:25 Hyposegmented Neuts Not Reportable 05/13/16 21:25 Hypogranular Neuts Not Reportable 05/13/16 21:25 Smudge Cells Not Reportable 05/13/16 21:25 Toxic Granulation Not Reportable 05/13/16 21:25 Toxic Vacuolation Not Reportable 05/13/16 21:25 Dohle Bodies Not Reportable 05/13/16 21:25 Pelger-Huet Anomaly Not Reportable 05/13/16 21:25 Michell Rods Not Reportable 05/13/16 21:25 Platelet Estimate Consistent w auto 05/13/16 21:25 Clumped Platelets Not Reportable 05/13/16 21:25 Plt Clumps, EDTA Not Reportable 05/13/16 21:25 Large Platelets Not Reportable 05/13/16 21:25 Giant Platelets Not Reportable 05/13/16 21:25 Platelet Satelliting Not Reportable 05/13/16 21:25 Plt Morphology Comment Not Reportable 05/13/16 21:25 RBC Morphology Not Reportable 05/13/16 21:25 Dimorphic RBCs Not Reportable 05/13/16 21:25 Polychromasia Not Reportable 05/13/16 21:25 Hypochromasia Not Reportable 05/13/16 21:25 Poikilocytosis 1+ 05/13/16 21:25 Anisocytosis Not Reportable 05/13/16 21:25 Microcytosis Not Reportable 05/13/16 21:25 Macrocytosis 1+ 05/13/16 21:25 Spherocytes Not Reportable 05/13/16 21:25 Pappenheimer Bodies Not Reportable 05/13/16 21:25 Sickle Cells Not Reportable 05/13/16 21:25 Target Cells Not Reportable 05/13/16 21:25 Tear Drop Cells Not Reportable 05/13/16 21:25 Ovalocytes Not Reportable 05/13/16 21:25 Helmet Cells Not Reportable 05/13/16 21:25 [place] Bodies Not Reportable 05/13/16 21:25 [place] Rings Not Reportable 05/13/16 21:25 [place] Cells Not Reportable 05/13/16 21:25 Bite Cells Not Reportable 05/13/16 21:25 Crenated Cell Not Reportable 05/13/16 21:25 Elliptocytes Not Reportable 05/13/16 21:25 Acanthocytes (Spur) Not Reportable 05/13/16 21:25 Rouleaux Not Reportable 05/13/16 21:25 Hemoglobin C Crystals Not Reportable 05/13/16 21:25 Schistocytes Not Reportable 05/13/16 21:25 Malaria parasites Not Reportable 05/13/16 21:25 [place] Bodies Not Reportable 05/13/16 21:25 Hem Pathologist Commnt No 05/13/16 21:25 D-Dimer 237.39 ng/mlDDU (0-234) H 05/13/16 21:25 POC ABG pH 7.385 (7.35-7.45) 05/16/16 09:57 POC ABG pCO2 53.8 (35-45) H 05/16/16 09:57 POC ABG pO2 57 (80-105) L 05/16/16 09:57 POC ABG HCO3 32.1 05/16/16 09:57 POC ABG Total CO2 34 05/16/16 09:57 POC ABG O2 Sat 88 05/16/16 09:57 POC ABG Base Excess 7 05/16/16 09:57 FiO2 30 % 05/16/16 09:57 Sodium 140 mmol/L (137-145) 05/17/16 15:10 Potassium 4.8 mmol/L (3.6-5.0) 05/17/16 15:10 Chloride 95.3 mmol/L (98-107) L 05/17/16 15:10 Carbon Dioxide 31 mmol/L (22-30) H D 05/17/16 15:10 Anion Gap 19 mmol/L 05/17/16 15:10 BUN 25 mg/dL (7-17) H 05/17/16 15:10 Creatinine 0.8 mg/dL (0.7-1.2) 05/17/16 15:10 Estimated GFR > 60 ml/min 05/17/16 15:10 BUN/Creatinine Ratio 31.25 % 05/17/16 15:10 Glucose 106 mg/dL (65-100) H 05/17/16 15:10 POC Glucose 170 (70-105) H 05/17/16 22:38 Calcium 9.7 mg/dL (8.4-10.2) 05/17/16 15:10 Total Bilirubin 0.4 mg/dL (0.1-1.2) 05/13/16 21:25 AST 31 units/L (5-40) 05/13/16 21:25 ALT 25 units/L (7-56) 05/13/16 21:25 Alkaline Phosphatase 78 units/L (35-129) 05/13/16 21:25 Total Creatine Kinase 292 units/L (30-135) H 05/14/16 17:41 CK-MB (CK-2) 2.8 ng/mL (0.0-4.0) 05/13/16 21:25 CK-MB (CK-2) Rel Index 0.8 (0-4) 05/13/16 21:25 Troponin T < 0.010 ng/mL (0.00-0.029) 05/13/16 21:25 Total Protein 7.5 g/dL (6.3-8.2) 05/13/16 21:25 Albumin 4.1 g/dL (3.9-5) 05/13/16 21:25 Albumin/Globulin Ratio 1.2 % 05/13/16 21:25 Urine Opiates Screen Presumptive negative 05/14/16 13:02 Urine Methadone Screen Presumptive negative 05/14/16 13:02 Ur Barbiturates Screen Presumptive negative 05/14/16 13:02 Ur Phencyclidine Scrn Presumptive negative 05/14/16 13:02 Ur Amphetamines Screen Presumptive negative 05/14/16 13:02 U Benzodiazepines Scrn Presumptive positive 05/14/16 13:02 Urine Cocaine Screen Presumptive positive 05/14/16 13:02 U Marijuana (THC) Screen Presumptive positive 05/14/16 13:02 Drugs of Abuse Note Disclamer 05/14/16 13:02
[2016-05-18] MEDS ORDERED: PROVENTIL IH PRN (17:10)
[2016-05-18] MEDS: PERCOCET 5/325 PO PRN (17:23)
[2016-05-18] MEDS: ZESTRIL PO SCH (20:15)
[2016-05-18] MEDS: HCTZ PO SCH (20:15)
[2016-05-18] MEDS: NORVASC PO SCH (20:15)
[2016-05-19] MEDS: DUONEB 0.5 MG-3 MG/3 ML SOLN IH SCH ×3 (01:05→14:22)
[2016-05-19] MEDS: HEPARIN SUB-Q SCH (05:06)
--- NOTE | 2016-05-19 08:23 | Discharge Summary ---
Providers - Providers Date of Admission: 05/14/16 00:49 Date of discharge: 05/19/16 Attending physician: TASNEEM العراقي MD Primary care physician: [employer] Hospitalization Reason for admission: acute respiratory failure with metabolic encephalopathy Condition: Stable Hospital course: 50 yo female the past medical history of COPD, hypertension, and non-insulin- dependent diabetes presents to the hospital with shortness of breath and altered mental status. EMS reports that boyfriend at the scene stated the patient was short of breath and has used multiple albuterol inhaler treatments at the scene. Patient was unresponsive upon their arrival requiring bag valve mask ventilations. While she is in the ED she was intubated, mechanically ventilated and couldn't get any history. Up on waking up the patient still could not tell us what happened how she became acutely short of breath. Family was present in the room did state that the patient has apparently been a questionable lifestyle. It appears the patient may have overdosed on substances as she was positive for cocaine and marijuana possibly went into narcosis, which caused her symptoms. Nevertheless, the patient reports that she has not been able to afford her medication. We did go to a great deal of pain to ensure that all medications are on the $4 [employer] list and some actually free air. The patient verbalized understanding and he to follow-up. Home oxygen evaluation was done and was negative. Patient stable for discharge * Acute Encephalopathy * Co2 Narcosis * Acute Hypercapnic and hypoxic respiratory failure * Diabetes Mellitus type 2 * Polysubstance abuse * Cocaine and marijuana abuse * Metabolic Acidosis-resolved * Asthma with exacerbation Disposition: DISCHARGED TO HOME OR SELFCARE Time spent for discharge: 35 mins Core Measure Documentation - Palliative Care Palliative Care/ Comfort Measures: Not Applicable - Core Measures Any of the following diagnoses?: none - VTE Discharge Requirements Deep Vein Thrombosis/Pulmonary Embolism Present on Admission: No Exam - Physical Exam Narrative exam: VITAL SIGNS: Reviewed. GENERAL: Appears well-nourished and developed, sedated Vital signs as documented. HEAD: No signs of head trauma. EYES: Pupils are equal. Extraocular movements intact EARS: Appropriate hearing MOUTH: Oropharyngeal normal. NECK: No adenopathy, no JVD. CHEST: Chest with diminished breath sounds bilaterally. No wheezes, rales, or rhonchi. CARDIAC: Regular rate and rhythm. S1 and S2, without murmurs, gallops, or rubs. VASCULAR: No Edema. Peripheral pulses normal and equal in all extremities. ABDOMEN: Soft, without detectable tenderness. No sign of distention. No rebound or guarding, and no masses palpated. Bowel Sounds normal. MUSCULOSKELETAL: Good range of motion of all major joints. Extremities without clubbing, cyanosis or edema. NEUROLOGIC EXAM: Awake alert oriented 3 no focal neurological deficit. PSYCHIATRIC: Mood is normal SKIN: Tattoo - Constitutional Vitals: Temp Pulse Resp BP Pulse Ox 98.4 F 78 16 108/62 92 05/19/16 05:15 05/19/16 08:12 05/19/16 08:12 05/19/16 05:15 05/19/16 08:15 Plan Activity: advance as tolerated, fall precautions Diet: diabetic Special Instructions: record daily weights, record daily BP diary, record blood sugar diary Additional Instructions: must enroll in a detox program Follow up with: ALANNAH HASSAN MD [Staff Physician] - 7 Days PRIMARY CARE, [Primary Care Provider] - 3-5 Days Prescriptions: ALBUTEROL Inhaler [ProAir HFA Inhaler] 2 puff IH QID PRN #1 inhalation PRN Reason: Shortness Of Breath amLODIPine [Norvasc] 10 mg PO QDAY #30 tablet Hydrochlorothiazide [HCTZ] 25 mg PO QDAY #30 tablet Lisinopril [Zestril TAB] 40 mg PO QDAY #30 tablet oxyCODONE /ACETAMINOPHEN [Percocet 5/325 mg] 1 tab PO Q6H PRN #30 tablet PRN Reason: Pain, Moderate (4-6) predniSONE [Deltasone] 10 mg PO .TAPER #48 tab
[2016-05-19 09:49] VITALS: BP 115/72
[2016-05-19] MEDS: HCTZ PO SCH (09:49)
[2016-05-19] MEDS: NORVASC PO SCH (09:49)
[2016-05-19] MEDS: ZESTRIL PO SCH (09:51)
[2016-05-19] MEDS: PEPCID PO SCH (09:52)
[2016-05-19] MEDS ORDERED: PNEUMOVAX 23 IM ONE (12:16)
[2016-05-19] MEDS ORDERED: FLUARIX QUAD 2016-2017(36 MOS+) IM ONE (12:16)
== END 2016-05-19 13:30 | disposition home or self-care (01) | DRG 208 ==
LOC: ED 21:12 → CC1 05-14 00:49 → 4A 05-17 15:42
PROVIDERS: ADMIT Internal Medicine; ATTEND Internal Medicine
PROC: 5A1935Z Respiratory Ventilation, Less than 24 Consecutive Hours (ICD-10-PCS; principal; 2016-05-13)
PROC: 0BH17EZ Insertion of Endotracheal Airway into Trachea, Via Natural or Artificial Opening (ICD-10-PCS; 2016-05-13)
PROC: 4A033R1 Measurement of Arterial Saturation, Peripheral, Percutaneous Approach (ICD-10-PCS; 2016-05-16)
PROC: 3E0234Z Introduction of Serum, Toxoid and Vaccine into Muscle, Percutaneous Approach (ICD-10-PCS; 2016-05-19)
DX: J96.02 Acute respiratory failure with hypercapnia (principal); G93.40 Encephalopathy, unspecified; J44.1 Chronic obstructive pulmonary disease with (acute) exacerbation; E87.2 Acidosis; J45.901 Unspecified asthma with (acute) exacerbation; J96.01 Acute respiratory failure with hypoxia; I10 Essential (primary) hypertension; E11.9 Type 2 diabetes mellitus without complications; F19.10 Other psychoactive substance abuse, uncomplicated; F14.10 Cocaine abuse, uncomplicated; F12.10 Cannabis abuse, uncomplicated; E66.9 Obesity, unspecified; Z68.26 Body mass index [BMI] 26.0-26.9, adult; Z87.891 Personal history of nicotine dependence; Z88.8 Allergy status to other drugs, medicaments and biological substances; Z23 Encounter for immunization
CPT/HCPCS: 36415; 36600; 51702; 70450; 71010; 71275; 74000; 80048; 80053; 80307; 82550; 82553; 82803; 82962; 84484; 85007; 85025; 85027; 85379; 87070; 87205; 90686; 90732; 93005; 93010; 94002; 94003; 94640; 94644; 94760; 96361; 96374; 96375; 96376; J0330; J1170; J1644; J1956; J2060; J2250; J2310; J2405; J2704; J2920; J2930; J3010; J7030; J7040; Q9967

== ENCOUNTER 2016-07-30 21:34 | Emergency (ER) | payer SELFPAY ==
[2016-07-30] MEDS ORDERED: PROVENTIL IH ONE ×2 (21:49→21:58)
[2016-07-30] MEDS ORDERED: DUONEB 0.5 MG-3 MG/3 ML SOLN IH ONE (22:28)
--- NOTE | 2016-07-30 22:31 | Emergency Department Report ---
Chief Complaint: Adult Asthma Stated Complaint: CHEST PAIN, SHORTNESS OF BREATH Time Seen by Provider: 07/30/16 22:27 - HPI History of Present Illness: PT c/o COPD exacerbation. PT states it became worse today when she ran out of her inhalers. - ROS Review of Systems: + cough + sob + wheezing - Exam Vital Signs: Vital Signs 07/30/16 21:54 Temperature 97.9 F Pulse Rate 98 H Respiratory 24 Rate Blood Pressure 142/90 O2 Sat by Pulse 95 Oximetry Physical Exam: pt with cough, pt with insp and exp wheezing andrade MSE screening note: Focused history and physical exam performed. Due to findings the following was ordered: labs, neb ED Disposition for MSE Condition: Stable Referrals: PRIMARY CARE, [Primary Care Provider] - 3-5 Days
[2016-07-30] MEDS ORDERED: TORADOL IM ONE (23:03)
[2016-07-30 23:08] LABS: Basophils % (Auto) 0.4 % (0.0-1.8); Eosinophils % (Auto) 7.9 % (0.0-4.3); Hematocrit 45.4 % (30.3-42.9); Mean Corpuscular HGB Conc 33 % (30-34); Mean Corpuscular Hemoglobin 32 pg (28-32); Mean Corpuscular Volume 97 fl (79-97); Platelet Count 237 K/mm3 (140-440); Red Blood Count 4.67 M/mm3 (3.65-5.03); Red Cell Distribution Width 13.3 % (13.2-15.2); White Blood Count 10.1 K/mm3 (4.5-11.0)
[2016-07-30 23:26] LABS: BUN/Creatinine Ratio 22.3; Calcium 10.3 mg/dL (8.4-10.2); Chloride 94.9 mmol/L (98-107); Potassium 4.5 mmol/L (3.6-5.0)
--- NOTE | 2016-07-30 23:37 | XRay Report ---
FINAL REPORT PROCEDURE: XR CHEST ROUTINE 2V TECHNIQUE: PA and lateral chest radiographs were obtained. CPT 16279 HISTORY: SOB COMPARISON: No prior studies are available for comparison. FINDINGS: Heart: Normal. Mediastinum/Vessels: Normal. Lungs/Pleural space: Lungs are well-expanded. There is a vague 17 millimeter opacity at the left lung base in the frontal view. This is most likely artifact caused by superimposition of ribs, or left nipple shadow. Remote possibility of pulmonary nodule not entirely excluded. If indicated, a repeat frontal chest x-ray with nipple markers may be helpful. There are no effusions or pneumothoraces.. Bony thorax: No acute osseous abnormality. Other: IMPRESSION: Heart size is normal. There are no active infiltrates. Questionable left lung nodule versus artifact..
[2016-07-31 01:38] VITALS: BP 90/62
--- NOTE | 2016-07-31 02:08 | Emergency Department Report ---
ED Asthma HPI - General Chief Complaint: Adult Asthma Stated Complaint: CHEST PAIN, SHORTNESS OF BREATH Time Seen by Provider: 07/30/16 22:27 Source: patient Mode of arrival: Ambulatory Limitations: No Limitations - History of Present Illness Initial Comments: 50-year-old female with past medical history of COPD presenting to the emergency room complaining of shortness of breath and wheezing. Onset of symptoms started 2 days prior to ED arrival. Initially she used her inhaler for symptoms and they improved however she ran out of her inhaler yesterday and started noticing that her wheezing would not remit on its own. Patient also endorses dry cough. Patient denies: Fever/chills, chest pain, hemoptysis, abdominal pain. MD Complaint: wheezing -: Gradual, days(s) Severity: severe Context: ran out of meds (albuterol) Associated Symptoms: dry cough. denies: fever, chest pain, hemoptysis, leg edema, syncope - Related Data Current Asthma Therapy: inhaled bronchodilator Previous Rx's Medication Instructions Recorded Last Taken Type Hydrochlorothiazide [HCTZ] 25 mg PO QDAY #30 tablet 05/19/16 Unknown Rx Lisinopril [Zestril TAB] 40 mg PO QDAY #30 tablet 05/19/16 Unknown Rx amLODIPine [Norvasc] 10 mg PO QDAY #30 tablet 05/19/16 Unknown Rx oxyCODONE /ACETAMINOPHEN [Percocet 1 tab PO Q6H PRN #30 tablet 05/19/16 Unknown Rx 5/325 mg] ALBUTEROL Inhaler [ProAir HFA 2 puff IH QID PRN #1 inhalation 07/31/16 Unknown Rx Inhaler] ALBUTEROL Inhaler [ProAir HFA 2 puff IH QID PRN #1 inhalation 07/31/16 Unknown Rx Inhaler] predniSONE [Deltasone] 10 mg PO .TAPER #48 tab 07/31/16 Unknown Rx predniSONE [Deltasone] 50 mg PO QDAY #5 tab 07/31/16 Unknown Rx predniSONE [Deltasone] 60 mg PO QDAY #12 tab 07/31/16 Unknown Rx Allergies Allergy/AdvReac Type Severity Reaction Status Date / Time aspirin Allergy Unknown Verified 04/17/16 22:29 ED Review of Systems ROS: Stated complaint: CHEST PAIN, SHORTNESS OF BREATH Other details as noted in HPI Constitutional: denies: chills, fever Eyes: denies: eye pain, eye discharge, vision change ENT: denies: ear pain, throat pain Respiratory: shortness of breath, wheezing. denies: cough, SOB with exertion, SOB at rest Cardiovascular: denies: chest pain, palpitations Endocrine: no symptoms reported Gastrointestinal: denies: abdominal pain, nausea, diarrhea Genitourinary: denies: urgency, dysuria, discharge Musculoskeletal: denies: back pain, joint swelling, arthralgia Skin: denies: rash, lesions Neurological: denies: headache, weakness, paresthesias Psychiatric: denies: anxiety, depression Hematological/Lymphatic: denies: easy bleeding, easy bruising ED Past Medical Hx - Past Medical History Hx Hypertension: Yes Hx Congestive Heart Failure: No Hx Diabetes: Yes Hx Asthma: Yes Hx COPD: No - Surgical History Additional Surgical History: "hernia" - Social History Smoking Status: Current Every Day Smoker Substance Use Type: None - Medications Home Medications: Home Medications Medication Instructions Recorded Confirmed Last Taken Type Hydrochlorothiazide [HCTZ] 25 mg PO QDAY #30 tablet 05/19/16 Unknown Rx Lisinopril [Zestril TAB] 40 mg PO QDAY #30 tablet 05/19/16 Unknown Rx amLODIPine [Norvasc] 10 mg PO QDAY #30 tablet 05/19/16 Unknown Rx oxyCODONE /ACETAMINOPHEN [Percocet 1 tab PO Q6H PRN #30 tablet 05/19/16 Unknown Rx 5/325 mg] ALBUTEROL Inhaler [ProAir HFA 2 puff IH QID PRN #1 inhalation 07/31/16 Unknown Rx Inhaler] ALBUTEROL Inhaler [ProAir HFA 2 puff IH QID PRN #1 inhalation 07/31/16 Unknown Rx Inhaler] predniSONE [Deltasone] 10 mg PO .TAPER #48 tab 07/31/16 Unknown Rx predniSONE [Deltasone] 50 mg PO QDAY #5 tab 07/31/16 Unknown Rx predniSONE [Deltasone] 60 mg PO QDAY #12 tab 07/31/16 Unknown Rx ED Physical Exam - General Limitations: No Limitations ED Course Vital Signs 07/30/16 07/31/16 21:54 01:37 Temperature 97.9 F 97.9 F Pulse Rate 98 H 71 Respiratory 24 16 Rate Blood Pressure 142/90 Blood Pressure 90/62 [Right] O2 Sat by Pulse 95 96 Oximetry ED Medical Decision Making - Lab Data Result diagrams: 07/30/16 22:55 07/30/16 22:55 - EKG Data -: EKG Interpreted by Me EKG shows normal: sinus rhythm (95) Rate: normal - EKG Data When compared to previous EKG there are: no significant change Interpretation: no acute changes - Radiology Data Radiology results: image reviewed Patient informed of incidental finding on x-ray have a repeat chest x-ray - Medical Decision Making A 50-year-old female past medical history of COPD, hypertension diabetes presenting to the emergency department complaining of wheezing. Patient likely with COPD exacerbation. I have low suspicion for ACS, pneumonia, PE. After treatment in the ED patient admits her symptoms have resolved and she is ready to DC home. Patient well-appearing. Eating cookies. Awaiting discharge. Of note she's been informed of her incidental finding on CXR Critical Care Time: No Critical care attestation.: If time is entered above; I have spent that time in minutes in the direct care of this critically ill patient, excluding procedure time. ED Disposition Clinical Impression: Wheezing Disposition: DC-01 TO HOME OR SELFCARE Is pt being admited?: No Does the pt Need Aspirin: No Condition: Good Instructions: Chronic Obstructive Pulmonary Disease (ED) Prescriptions: ALBUTEROL Inhaler [ProAir HFA Inhaler] 2 puff IH QID PRN #1 inhalation PRN Reason: Shortness Of Breath ALBUTEROL Inhaler [ProAir HFA Inhaler] 2 puff IH QID PRN #1 inhalation PRN Reason: Shortness Of Breath predniSONE [Deltasone] 10 mg PO .TAPER #48 tab predniSONE [Deltasone] 60 mg PO QDAY #12 tab predniSONE [Deltasone] 50 mg PO QDAY #5 tab Referrals: PRIMARY CARE, [Primary Care Provider] - 3-5 Days
== END 2016-07-31 02:20 | disposition home or self-care (01) ==
LOC: ED 21:34
DX: R06.2 Wheezing (principal); I10 Essential (primary) hypertension; E11.9 Type 2 diabetes mellitus without complications; J45.909 Unspecified asthma, uncomplicated; F17.200 Nicotine dependence, unspecified, uncomplicated
CPT/HCPCS: 36415; 71020; 80048; 84484; 85025; 93005; 93010; 96372; 99284; J1885; J2930

== ENCOUNTER 2019-11-14 23:17 | Inpatient (IN) | payer OTHER, SELFPAY ==
[2019-11-14] MEDS ORDERED: IPRATROPIUM 0.02% NEBU 2.5 ML IH ONE (23:47)
[2019-11-14] MEDS ORDERED: MAGNESIUM SULFATE 2 GM/50 ML BAG IV ONE (23:47)
[2019-11-14] MEDS ORDERED: ALBUTEROL 2.5 MG/3 ML NEBU IH ONE (23:47)
[2019-11-14] MEDS ORDERED: methylPREDNISolone Sod Succinate 125 MG/2 ML INJ IV ONE (23:47)
--- NOTE | 2019-11-14 23:59 | Emergency Department Report ---
HPI - General Chief Complaint: Dyspnea/Respdistress Time Seen by Provider: 11/14/19 23:39 - HPI HPI: Room 1 The patient is a 54-year-old female present with a chief complaint of shortness of breath. Patient states her symptoms began today with shortness of breath and a cough that is occasionally productive of clear sputum. Patient denies history of fever or contact with known palpitations. Patient states her symptoms feel consistent with her COPD. The patient states she is not on oxygen at home. The patient was found to be satting at 84% on room air in the ED ED Past Medical Hx - Past Medical History Previous Medical History?: Yes Hx Hypertension: Yes Hx Congestive Heart Failure: Yes Hx Diabetes: Yes Hx Asthma: Yes Hx COPD: Yes - Surgical History Past Surgical History?: Yes Additional Surgical History: "hernia" - Family History Family history: no significant - Social History Smoking Status: Former Smoker (None x2 years) Substance Use Type: None (Denies illicit drug use) - Medications Home Medications: Home Medications Medication Instructions Recorded Confirmed Last Taken Type hydroCHLOROthiazide [HCTZ] 25 mg PO QDAY #30 tablet 05/19/16 09/29/19 Unknown Rx oxyCODONE /ACETAMINOPHEN [Percocet 1 tab PO Q6H PRN #30 tablet 05/19/16 09/29/19 Unknown Rx 5/325 mg] Albuterol Mdi (or & Nicu Only) 2 puff IH QID PRN #1 inhalation 07/31/16 09/29/19 Unknown Rx [ProAir HFA Inhaler] Albuterol Mdi (or & Nicu Only) 2 puff IH QID PRN #1 inha 09/30/19 Unknown Rx [ProAir HFA Inhaler] Prednisone [predniSONE 5 mg (6-Day 5 mg PO .TAPER #1 tab.ds.pk 09/30/19 Unknown Rx Pack, 21 Tabs)] amLODIPine 10 mg PO QDAY #30 tablet 09/30/19 Unknown Rx levoFLOXacin [Levaquin] 750 mg PO QDAY #7 tablet 09/30/19 Unknown Rx lisinopriL [Zestril TAB] 40 mg PO QDAY #30 tablet 09/30/19 Unknown Rx ED Review of Systems ROS: Stated complaint: ASTHMA Other details as noted in HPI Constitutional: denies: fever Respiratory: cough, shortness of breath Endocrine: no symptoms reported Physical Exam - Physical Exam Vital Signs: Vital Signs 11/14/19 23:25 Temperature 98.5 F Pulse Rate 106 H Respiratory 19 Rate Blood Pressure 160/97 O2 Sat by Pulse 98 Oximetry Physical Exam: GENERAL: The patient is well-developed well-nourished female sitting on stretcher diaphoretic appearing to be in acute distress. [] HEENT: Normocephalic. Atraumatic. Extraocular motions are intact. Patient has moist mucous membranes. NECK: Supple. Trachea midline CHEST/LUNGS: Diminished diffusely, tachypnea. Occasional wheeze HEART/CARDIOVASCULAR: Regular. There is no tachycardia. There is no gallop rub or murmur. ABDOMEN: Abdomen is soft, nontender. Patient has normal bowel sounds. There is no abdominal distention. SKIN: There is no rash. There is no edema. There is diaphoresis. NEURO: The patient is awake, alert, and oriented. The patient is cooperative. The patient has normal speech MUSCULOSKELETAL: There is no evidence of acute injury. ED Course Vital Signs 11/14/19 23:25 Temperature 98.5 F Pulse Rate 106 H Respiratory 19 Rate Blood Pressure 160/97 O2 Sat by Pulse 98 Oximetry - Reevaluation(s) Reevaluation #1: 11/15/19 00:53 Patient improved on BiPAP ED Medical Decision Making - Lab Data Result diagrams: 11/15/19 00:05 11/15/19 00:05 Laboratory Tests 11/15/19 11/15/19 00:05 00:05 WBC 11.4 H RBC 4.71 Hgb 15.6 H Hct 46.8 H MCV 99 H MCH 33 H MCHC 33 RDW 13.8 Plt Count 223 Lymph % (Auto) 20.3 Price % (Auto) 8.6 H Eos % (Auto) 6.0 H Baso % (Auto) 0.4 Lymph # 2.3 Price # 1.0 H Eos # 0.7 H Baso # 0.1 Seg Neutrophils % 64.7 Seg Neutrophils # 7.4 Sodium 139 Potassium 4.1 Chloride 101.0 Carbon Dioxide 22 Anion Gap 20 BUN 14 Creatinine 1.0 Estimated GFR > 60 BUN/Creatinine Ratio 14 Glucose 119 H Calcium 9.3 Troponin T < 0.010 NT-Pro-B Natriuret Pep 136.3 - EKG Data -: EKG Interpreted by Id EKG shows normal: sinus rhythm Rate: normal - EKG Data When compared to previous EKG there are: previous EKG unavailable Interpretation: other (No ischemic changes seen) - Radiology Data Radiology results: image reviewed (Chest x-ray) interpreted by me: Chest x-ray-no definite focal infiltrates, no pneumothorax, no foreign body seen Findings [facility] [address] [place] [address] XRay Report Signed Patient: CRICKET HOBBS MR#: [id number] : 1965 Acct:[id number] Age/Sex: 54 / F ADM Date: 11/14/19 Loc: ED Attending Dr: Ordering Physician: FRANKIE MCKEON MD Date of Service: 11/14/19 Procedure(s): XR chest 1V ap Accession Number(s): [id number] cc: FRANKIE MCKEON MD Fluoro Time In Minutes: CHEST 1 VIEW 11/15/2019 12:07 AM INDICATION / CLINICAL INFORMATION: Shortness of breath. COMPARISON: 09/29/2019 FINDINGS: SUPPORT DEVICES: None. HEART / MEDIASTINUM: No significant abnormality. LUNGS / PLEURA: No significant pulmonary or pleural abnormality. No pneumothorax. ADDITIONAL FINDINGS: No significant additional findings. IMPRESSION: 1. No acute findings. Signer Name: Yasir Khan MD Signed: 11/15/2019 12:32 AM Workstation Name: [id number] Transcribed By: TL Dictated By: Yasir Khan MD Electronically Authenticated By: Yasir Khan MD Signed Date/Time: 11/15/1931 DD/ TD/TT: - Differential Diagnosis COPD exacerbation, pneumonia, bronchitis, Critical care attestation.: If time is entered above; I have spent that time in minutes in the direct care of this critically ill patient, excluding procedure time. ED Disposition Clinical Impression: COPD exacerbation, Hypoxia, Respiratory failure Disposition: OP ADMIT IP TO THIS HOSP Is pt being admited?: Yes Does the pt Need Aspirin: No Condition: Fair Instructions: Chronic Obstructive Pulmonary Disease (ED) Time of Disposition: 00:54 (Hospitalist paged ( Dr Arita))
[2019-11-15 00:21] LABS: Basophils # (Auto) 0.1 K/mm3 (0.0-0.1); Basophils % (Auto) 0.4 % (0.0-1.8); Eosinophils # (Auto) 0.7 K/mm3 (0.0-0.4); Hematocrit 46.8 % (30.3-42.9); Hemoglobin 15.6 gm/dl (10.1-14.3); Lymphocytes # (Auto) 2.3 K/mm3 (1.2-5.4); Lymphocytes % (Auto) 20.3 % (13.4-35.0); Mean Corpuscular HGB Conc 33 % (30-34); Mean Corpuscular Volume 99 fl (79-97); Monocytes % (Auto) 8.6 % (0.0-7.3); Platelet Count 223 K/mm3 (140-440); Red Blood Count 4.71 M/mm3 (3.65-5.03); Red Cell Distribution Width 13.8 % (13.2-15.2)
--- NOTE | 2019-11-15 00:37 | XRay Report ---
CHEST 1 VIEW 11/15/2019 12:07 AM INDICATION / CLINICAL INFORMATION: Shortness of breath. COMPARISON: 09/29/2019 FINDINGS: SUPPORT DEVICES: None. HEART / MEDIASTINUM: No significant abnormality. LUNGS / PLEURA: No significant pulmonary or pleural abnormality. No pneumothorax. ADDITIONAL FINDINGS: No significant additional findings. IMPRESSION: 1. No acute findings. Signer Name: Yasir Khan MD Signed: 11/15/2019 12:32 AM Workstation Name: [id number]
[2019-11-15 00:42] LABS: BUN/Creatinine Ratio 14; Blood Urea Nitrogen 14 mg/dL (7-17); Calcium 9.3 mg/dL (8.4-10.2); Hemolysis Index 19
[2019-11-15] MEDS ORDERED: DEXTROSE 50% IN WATER (25GM) 50 ML SYRINGE IV PRN (02:58)
[2019-11-15] MEDS ORDERED: ACETAMINOPHEN 325 MG TAB PO PRN (02:58)
[2019-11-15] MEDS ORDERED: MAGNESIUM HYDROXIDE (MOM) ORAL LIQD UDC PO PRN (02:58)
[2019-11-15] MEDS ORDERED: ONDANSETRON 4 MG/2 ML INJ IV PRN (02:58)
--- NOTE | 2019-11-15 03:18 | History and Physical Report ---
History of Present Illness Date of examination: 11/15/19 Date of admission: 11/15/19 01:57 Chief complaint: Shortness of Breath Cough History of present illness: 54-year-old female with known history of COPD, hypertension, diabetes mellitus and CHF presented to the emergency room today complaining of shortness of breath. She has also had some cough productive of some clear sputum. She denies any fever or chills, no chest pain, no headache or dizziness, no nausea or vomiting and no diarrhea. She denies any sick contacts and no recent travel. She denies any contact with anyone with COVID-19. Upon arrival in the emergency room she was found to be hypoxic with oxygen saturation in the 80s on room air she was subsequently placed on BiPAP. Patient was given some nebulizer treatments, Solu-Medrol and magnesium with some improvement. Past History Past Medical History: COPD, diabetes, heart failure, hypertension Past Surgical History: hernia repair Social history: smoking (Former Smoker, quit 2 years ago.) Family history: no significant family history Medications and Allergies Allergies Allergy/AdvReac Type Severity Reaction Status Date / Time aspirin Allergy Unknown Verified 04/17/16 22:29 Home Medications Medication Instructions Recorded Confirmed Last Taken Type hydroCHLOROthiazide [HCTZ] 25 mg PO QDAY #30 tablet 05/19/16 09/29/19 Unknown Rx oxyCODONE /ACETAMINOPHEN [Percocet 1 tab PO Q6H PRN #30 tablet 05/19/16 09/29/19 Unknown Rx 5/325 mg] Albuterol Mdi (or & Nicu Only) 2 puff IH QID PRN #1 inhalation 07/31/16 09/29/19 Unknown Rx [ProAir HFA Inhaler] Albuterol Mdi (or & Nicu Only) 2 puff IH QID PRN #1 inha 09/30/19 Unknown Rx [ProAir HFA Inhaler] Prednisone [predniSONE 5 mg (6-Day 5 mg PO .TAPER #1 tab.ds.pk 09/30/19 Unknown Rx Pack, 21 Tabs)] amLODIPine 10 mg PO QDAY #30 tablet 09/30/19 Unknown Rx levoFLOXacin [Levaquin] 750 mg PO QDAY #7 tablet 09/30/19 Unknown Rx lisinopriL [Zestril TAB] 40 mg PO QDAY #30 tablet 09/30/19 Unknown Rx Active Meds: Active Medications Acetaminophen (Tylenol) 650 mg PO Q4H PRN PRN Reason: Pain MILD(1-3)/Fever >100.5/BLAKE Albuterol/Ipratropium (Duoneb *Not For Prn Use*) 1 ampul IH Q4HRT [facility] Dextrose (D50w (25gm) Syringe) 50 ml IV Q30MIN PRN; Protocol PRN Reason: Hypoglycemia Insulin Human Lispro (Humalog) 0 unit SUB-Q ACHS [facility]; Protocol Magnesium Hydroxide (Milk Of Magnesia) 30 ml PO Q4H PRN PRN Reason: Constipation Methylprednisolone Sodium Succinate (Solu-Medrol) 40 mg IV Q8HR FREDDY Ondansetron HCl (Zofran) 4 mg IV Q8H PRN PRN Reason: Nausea And Vomiting Sodium Chloride (Sodium Chloride Flush Syringe 10 Ml) 10 ml IV BID [facility] Sodium Chloride (Sodium Chloride Flush Syringe 10 Ml) 10 ml IV PRN PRN PRN Reason: LINE FLUSH Review of Systems Constitutional: no fever, no chills Ears, nose, mouth and throat: no nasal congestion, no sore throat Cardiovascular: no chest pain, no palpitations Respiratory: cough, shortness of breath Gastrointestinal: no abdominal pain, no nausea, no vomiting, no diarrhea Genitourinary Female: no pelvic pain, no flank pain, no dysuria, no hematuria Musculoskeletal: no neck pain, no low back pain Integumentary: no rash, no pruritis Neurological: no headaches, no confusion Psychiatric: no anxiety, no depression Exam - Constitutional Vitals: Temp Pulse Resp BP Pulse Ox 98.5 F 84 22 148/84 97 11/14/19 23:25 11/15/19 02:00 11/15/19 02:00 11/15/19 02:00 11/15/19 02:00 General appearance: Present: no acute distress, well-nourished - EENT Eyes: Present: PERRL, EOM intact. Absent: scleral icterus ENT: hearing intact, clear oral mucosa, dentition normal - Neck Neck: Present: supple, normal ROM - Respiratory Respiratory effort: normal Respiratory: bilateral: diminished - Cardiovascular Rhythm: regular Heart Sounds: Present: S1 & S2. Absent: gallop, systolic murmur, diastolic murmur, rub - Extremities Extremities: no ischemia, pulses intact, pulses symmetrical, No edema, Full ROM Peripheral Pulses: within normal limits - Abdominal General gastrointestinal: Present: soft, non-tender, non-distended, normal bowel sounds. Absent: mass - Integumentary Integumentary: Present: clear, warm, dry. Absent: rash - Musculoskeletal Musculoskeletal: strength equal bilaterally - Psychiatric Psychiatric: appropriate mood/affect, intact judgment & insight, memory intact, cooperative - Neurologic Neurologic: CNII-XII intact, no focal deficits, moves all extremities HEART Score - HEART Score Troponin: Troponin T < 0.010 ng/mL (0.00-0.029) 11/15/19 00:05 Results - Labs CBC & Chem 7: 11/15/19 00:05 11/15/19 00:05 Labs: Abnormal lab results 11/15/19 11/15/19 Range/Units 00:05 00:05 WBC 11.4 H (4.5-11.0) K/mm3 Hgb 15.6 H (10.1-14.3) gm/dl Hct 46.8 H (30.3-42.9) % MCV 99 H (79-97) fl MCH 33 H (28-32) pg Turner % (Auto) 8.6 H (0.0-7.3) % Eos % (Auto) 6.0 H (0.0-4.3) % Turner # 1.0 H (0.0-0.8) K/mm3 Eos # 0.7 H (0.0-0.4) K/mm3 Glucose 119 H (65-100) mg/dL Assessment and Plan - Patient Problems (1) COPD exacerbation Current Visit: Yes Status: Acute Plan to address problem: Patient placed on nebulizer treatments and IV steroid. (2) Hypoxia Current Visit: Yes Status: Acute Plan to address problem: Patient currently on BiPAP. Will monitor oxygen saturation. (3) Diabetes Current Visit: No Status: Acute Plan to address problem: We will monitor Accu-Cheks and resume routine home medications. (4) Hypertension Current Visit: No Status: Acute Plan to address problem: We will resume routine home medications and we will monitor vital signs closely (5) DVT prophylaxis Current Visit: No Status: Acute Plan to address problem: Patient placed on subcutaneous Lovenox (6) Full code status Current Visit: Yes Status: Acute
[2019-11-15] MEDS: IPRATROPIUM/ALBUTEROL SULFATE 3 ML AMPUL.NEB IH SCH ×6 (03:30→21:09)
[2019-11-15] MEDS ORDERED: IPRATROPIUM/ALBUTEROL SULFATE 3 ML AMPUL.NEB IH ONE ×4 (05:39→20:46)
[2019-11-15] MEDS ORDERED: methylPREDNISolone Sod Succinate 40 MG/1 ML INJ ONE ×3 (07:07→22:40)
[2019-11-15] MEDS: methylPREDNISolone Sod Succinate 40 MG/1 ML INJ IV SCH ×3 (07:16→22:49)
[2019-11-15] MEDS ORDERED: INSULIN LISPRO 100 UNIT/ML VIAL 3 mL SUB-Q ONE ×3 (07:40→22:42)
[2019-11-15] MEDS: INSULIN LISPRO 100 UNIT/ML VIAL 3 mL SUB-Q SCH ×4 (07:41→22:45)
[2019-11-15 10:54] LABS: ABG Base Excess 0.5 mmol/L (-2.0-3.0); ABG HCO3 26.1 mmol/L (20.0-26.0); ABG Methemoglobin 0.5 % (0.0-1.5); ABG PCO2 45.7 mm Hg; ABG PH 7.375 pH Units (7.350-7.450); ABG PO2 67.8 mm Hg (80.0-90.0)
--- NOTE | 2019-11-15 11:09 | Event Note ---
Date: 11/15/19 55-year-old female with a medical history of COPD admitted with chief complaint of shortness of breath and cough. Patient noted to be hypoxic in the ER was placed on oxygen supplementation. She denies any smoking. She was given steroids with improvement. Currently on Solu-Medrol 40 mg every 8. She feels much better to my examination this morning. Plan to continue current current medications and management Reevaluate in a.m.
[2019-11-15] MEDS: BENZONATATE 100 MG CAP PO SCH ×2 (15:58→22:49)
[2019-11-15] MEDS ORDERED: ENOXAPARIN 100 MG/1 ML INJ SUB-Q ONE (22:40)
[2019-11-15] MEDS ORDERED: BENZONATATE 100 MG CAP PO ONE (22:43)
[2019-11-15] MEDS: ENOXAPARIN 40 MG/0.4 ML INJ SUB-Q SCH (22:45)
[2019-11-16] MEDS: IPRATROPIUM/ALBUTEROL SULFATE 3 ML AMPUL.NEB IH SCH ×7 (00:43→21:03)
[2019-11-16 06:06] LABS: Hematocrit 43.2 % (30.3-42.9); Hemoglobin 14.2 gm/dl (10.1-14.3); Lymphocytes % (Auto) 7.9 % (13.4-35.0); Mean Corpuscular HGB Conc 33 % (30-34); Mean Corpuscular Volume 100 fl (79-97); Monocytes # (Auto) 0.9 K/mm3 (0.0-0.8); Platelet Count 235 K/mm3 (140-440); Red Blood Count 4.34 M/mm3 (3.65-5.03)
[2019-11-16] MEDS: methylPREDNISolone Sod Succinate 40 MG/1 ML INJ IV SCH ×3 (06:16→21:21)
[2019-11-16] MEDS: BENZONATATE 100 MG CAP PO SCH ×3 (06:16→21:20)
[2019-11-16 06:19] LABS: BUN/Creatinine Ratio 24; Blood Urea Nitrogen 19 mg/dL (7-17); Calcium 9.7 mg/dL (8.4-10.2); Hemolysis Index 13
[2019-11-16 06:23] LABS: INR 0.98 (0.87-1.13)
[2019-11-16] MEDS: INSULIN LISPRO 100 UNIT/ML VIAL 3 mL SUB-Q SCH ×3 (09:54→18:51)
--- NOTE | 2019-11-16 12:57 | Progress Note ---
Assessment and Plan Assessment and plan: 1) COPD/asthma exacerbation Current Visit: Yes Status: Acute Plan to address problem: Continue steroids Bronchodilators (2) Acute hypoxic respiratory failure Current Visit: Yes Status: Acute Plan to address problem: Weaned off BiPAP Now on nasal cannula. Continue to monitor (3) Diabetes Current Visit: No Status: Acute Plan to address problem: We will monitor Accu-Cheks and resume routine home medications. (4) Hypertension Current Visit: No Status: Acute Plan to address problem: We will resume routine home medications and we will monitor vital signs closely (5) DVT prophylaxis Current Visit: No Status: Acute Plan to address problem: Patient placed on subcutaneous Lovenox (6) Full code status Current Visit: Yes Status: Acute History Interval history: See assessment and plan Hospitalist Physical - Constitutional Vitals: Temp Pulse Resp BP Pulse Ox 97.4 F L 98 H 22 153/104 92 11/16/19 11:29 11/16/19 11:29 11/16/19 11:29 11/16/19 11:29 11/16/19 11:29 General appearance: Present: no acute distress, well-nourished - EENT Eyes: Present: PERRL - Neck Neck: Present: supple - Respiratory Respiratory: bilateral: wheezing - Cardiovascular Heart Sounds: Present: S1 & S2 - Extremities Extremities: No edema (trace) - Abdominal General gastrointestinal: soft, non-tender, non-distended, normal bowel sounds - Psychiatric Psychiatric: appropriate mood/affect - Neurologic Neurologic: CNII-XII intact HEART Score - HEART Score Troponin: Troponin T < 0.010 ng/mL (0.00-0.029) 11/15/19 00:05 Results - Labs CBC & Chem 7: 11/16/19 05:39 11/16/19 05:39 Labs: Laboratory Last Values WBC 13.3 K/mm3 (4.5-11.0) H 11/16/19 05:39 RBC 4.34 M/mm3 (3.65-5.03) 11/16/19 05:39 Hgb 14.2 gm/dl (10.1-14.3) 11/16/19 05:39 Hct 43.2 % (30.3-42.9) H 11/16/19 05:39 MCV 100 fl (79-97) H 11/16/19 05:39 MCH 33 pg (28-32) H 11/16/19 05:39 MCHC 33 % (30-34) 11/16/19 05:39 RDW 14.0 % (13.2-15.2) 11/16/19 05:39 Plt Count 235 K/mm3 (140-440) 11/16/19 05:39 Lymph % (Auto) 7.9 % (13.4-35.0) L 11/16/19 05:39 Hitchcock % (Auto) 7.0 % (0.0-7.3) 11/16/19 05:39 Eos % (Auto) 0.0 % (0.0-4.3) 11/16/19 05:39 Baso % (Auto) 0.0 % (0.0-1.8) 11/16/19 05:39 Lymph # (Auto) 1.0 K/mm3 (1.2-5.4) L 11/16/19 05:39 Hitchcock # (Auto) 0.9 K/mm3 (0.0-0.8) H 11/16/19 05:39 Eos # (Auto) 0.0 K/mm3 (0.0-0.4) 11/16/19 05:39 Baso # (Auto) 0.0 K/mm3 (0.0-0.1) 11/16/19 05:39 Seg Neutrophils % 85.1 % (40.0-70.0) H 11/16/19 05:39 Seg Neutrophils # 11.4 K/mm3 (1.8-7.7) H 11/16/19 05:39 PT 13.2 Sec. (12.2-14.9) 11/16/19 05:39 INR 0.98 (0.87-1.13) 11/16/19 05:39 D-Dimer 189.39 ng/mlDDU (0-234) 11/15/19 14:46 ABG pH 7.375 pH Units (7.350-7.450) 11/15/19 10:35 ABG pCO2 45.7 mm Hg 11/15/19 10:35 ABG pO2 67.8 mm Hg (80.0-90.0) L 11/15/19 10:35 ABG HCO3 26.1 mmol/L (20.0-26.0) H 11/15/19 10:35 ABG O2 Saturation 94.0 % (95.0-99.0) L 11/15/19 10:35 ABG O2 Content 19.2 (0.0-44) 11/15/19 10:35 ABG Base Excess 0.5 mmol/L (-2.0-3.0) 11/15/19 10:35 ABG Hemoglobin 14.8 gm/dl (12.0-16.0) 11/15/19 10:35 ABG Carboxyhemoglobin 1.1 % (0.0-5.0) 11/15/19 10:35 ABG Methemoglobin 0.5 % (0.0-1.5) 11/15/19 10:35 Oxyhemoglobin 92.5 % (95.0-99.0) L 11/15/19 10:35 FiO2 50 % 11/15/19 10:35 Sodium 137 mmol/L (137-145) 11/16/19 05:39 Potassium 5.0 mmol/L (3.6-5.0) D 11/16/19 05:39 Chloride 100.8 mmol/L (98-107) 11/16/19 05:39 Carbon Dioxide 24 mmol/L (22-30) 11/16/19 05:39 Anion Gap 17 mmol/L 11/16/19 05:39 BUN 19 mg/dL (7-17) H 11/16/19 05:39 Creatinine 0.8 mg/dL (0.6-1.2) 11/16/19 05:39 Estimated GFR > 60 ml/min 11/16/19 05:39 BUN/Creatinine Ratio 24 % 11/16/19 05:39 Glucose 154 mg/dL (65-100) H 11/16/19 05:39 POC Glucose 173 (70-105) H 11/15/19 22:52 Calcium 9.7 mg/dL (8.4-10.2) 11/16/19 05:39 Troponin T < 0.010 ng/mL (0.00-0.029) 11/15/19 00:05 NT-Pro-B Natriuret Pep 136.3 pg/mL (0-900) 11/15/19 00:05 Microbiology: Microbiology 11/15/19 00:05 Peripheral/Venous Blood Culture - Preliminary NO GROWTH AFTER 24 HOURS 11/14/19 23:54 Peripheral/Venous Blood Culture - Preliminary NO GROWTH AFTER 24 HOURS Rodríguez/IV: IV Catheter Type [Left Wrist] INT / Saline Lock Active Medications - Current Medications Current Medications: Generic Name Dose Route Start Last Admin Trade Name Freq PRN Reason Stop Dose Admin Acetaminophen 650 mg 11/15/19 02:58 Tylenol PO Q4H PRN Pain MILD(1-3)/Fever >100.5/BLAKE Albuterol/Ipratropium 1 ampul 11/15/19 04:00 11/16/19 08:08 Duoneb *Not For Prn Use* IH 1 ampul Q4HRT FREDDY Administration Benzonatate 100 mg 11/15/19 14:00 11/16/19 06:16 Tessalon Perles PO 100 mg Q8HR FREDDY Administration Dextrose 0 ml 11/15/19 02:58 D50w (25gm) Syringe IV Q30MIN PRN Hypoglycemia Protocol Enoxaparin Sodium 40 mg 11/15/19 22:00 11/15/19 22:45 Enoxaparin SUB-Q 40 mg QDAY@2200 FREDDY Administration Protocol Insulin Human Lispro 0 unit 11/15/19 07:30 11/16/19 09:54 Humalog SUB-Q 2 unit ACHS FREDDY Administration Protocol Magnesium Hydroxide 30 ml 11/15/19 02:58 Milk Of Magnesia PO Q4H PRN Constipation Methylprednisolone Sodium Succinate 40 mg 11/15/19 06:00 11/16/19 06:16 Solu-Medrol IV 40 mg Q8HR FREDDY Administration Ondansetron HCl 4 mg 11/15/19 02:58 Zofran IV Q8H PRN Nausea And Vomiting Sodium Chloride 10 ml 11/15/19 10:00 11/16/19 09:54 Sodium Chloride Flush Syringe 10 Ml IV 10 ml BID FREDDY Administration Sodium Chloride 10 ml 11/15/19 02:58 Sodium Chloride Flush Syringe 10 Ml IV PRN PRN LINE FLUSH Nutrition/Malnutrition Assess - Dietary Evaluation Nutrition/Malnutrition Findings: Nutrition Notes Start: 11/15/19 10:36 Freq: Status: Active Protocol: Document 11/15/19 10:36 LM (Rec: 11/15/19 10:36 LM [id number]) Nutrition Notes Need for Assessment generated from: MD Order Initial or Follow up Brief Note Subjective/Other Information MD consult for diet education. Pt in ED. Nutrition Intervention Follow-Up By: 11/17/19 Additional Comments F/U for diet education
[2019-11-16] MEDS: ENOXAPARIN 40 MG/0.4 ML INJ SUB-Q SCH (21:20)
[2019-11-16] MEDS: ARFORMOTEROL 15 MCG/2 ML NEBU IH SCH (21:36)
[2019-11-16] MEDS: BUDESONIDE 0.5 MG/2 ML NEBU IH SCH (21:36)
[2019-11-17] MEDS: INSULIN LISPRO 100 UNIT/ML VIAL 3 mL SUB-Q SCH ×4 (02:11→21:48)
[2019-11-17] MEDS: methylPREDNISolone Sod Succinate 40 MG/1 ML INJ IV SCH ×3 (05:10→21:49)
[2019-11-17] MEDS: BENZONATATE 100 MG CAP PO SCH ×3 (05:10→21:49)
[2019-11-17] MEDS: IPRATROPIUM/ALBUTEROL SULFATE 3 ML AMPUL.NEB IH SCH ×4 (08:04→20:19)
[2019-11-17] MEDS: BUDESONIDE 0.5 MG/2 ML NEBU IH SCH ×2 (08:04→20:19)
[2019-11-17] MEDS: ARFORMOTEROL 15 MCG/2 ML NEBU IH SCH ×2 (08:07→20:19)
--- NOTE | 2019-11-17 10:48 | Progress Note ---
Assessment and Plan Assessment and plan: 1) COPD/asthma exacerbation Current Visit: Yes Status: Acute Plan to address problem: Continue steroids Bronchodilators (2) Acute hypoxic respiratory failure Current Visit: Yes Status: Acute Plan to address problem: Now on nasal cannula. Walk test performed showed hypoxia ~80's. (3) Diabetes Current Visit: No Status: Acute Plan to address problem: We will monitor Accu-Cheks and resume routine home medications. (4) Hypertension Current Visit: No Status: Acute Plan to address problem: We will resume routine home medications and we will monitor vital signs closely (5) DVT prophylaxis Current Visit: No Status: Acute Plan to address problem: Patient placed on subcutaneous Lovenox (6) Full code status Current Visit: Yes Status: Acute History Interval history: See assessment and plan Hospitalist Physical - Constitutional Vitals: Temp Pulse Resp BP Pulse Ox 97.8 F 104 H 18 135/90 94 11/17/19 07:23 11/17/19 08:07 11/17/19 08:07 11/17/19 07:23 11/17/19 08:08 General appearance: Present: no acute distress, well-nourished - EENT Eyes: Present: PERRL - Neck Neck: Present: supple - Respiratory Respiratory: bilateral: wheezing - Cardiovascular Rhythm: regular Heart Sounds: Present: S1 & S2 - Extremities Extremities: No edema - Abdominal General gastrointestinal: soft, non-tender, non-distended, normal bowel sounds - Psychiatric Psychiatric: appropriate mood/affect - Neurologic Neurologic: CNII-XII intact HEART Score - HEART Score Troponin: Troponin T < 0.010 ng/mL (0.00-0.029) 11/15/19 00:05 Results - Labs CBC & Chem 7: 11/16/19 05:39 11/16/19 05:39 Labs: Laboratory Last Values WBC 13.3 K/mm3 (4.5-11.0) H 11/16/19 05:39 RBC 4.34 M/mm3 (3.65-5.03) 11/16/19 05:39 Hgb 14.2 gm/dl (10.1-14.3) 11/16/19 05:39 Hct 43.2 % (30.3-42.9) H 11/16/19 05:39 MCV 100 fl (79-97) H 11/16/19 05:39 MCH 33 pg (28-32) H 11/16/19 05:39 MCHC 33 % (30-34) 11/16/19 05:39 RDW 14.0 % (13.2-15.2) 11/16/19 05:39 Plt Count 235 K/mm3 (140-440) 11/16/19 05:39 Lymph % (Auto) 7.9 % (13.4-35.0) L 11/16/19 05:39 Wetzel % (Auto) 7.0 % (0.0-7.3) 11/16/19 05:39 Eos % (Auto) 0.0 % (0.0-4.3) 11/16/19 05:39 Baso % (Auto) 0.0 % (0.0-1.8) 11/16/19 05:39 Lymph # (Auto) 1.0 K/mm3 (1.2-5.4) L 11/16/19 05:39 Wetzel # (Auto) 0.9 K/mm3 (0.0-0.8) H 11/16/19 05:39 Eos # (Auto) 0.0 K/mm3 (0.0-0.4) 11/16/19 05:39 Baso # (Auto) 0.0 K/mm3 (0.0-0.1) 11/16/19 05:39 Seg Neutrophils % 85.1 % (40.0-70.0) H 11/16/19 05:39 Seg Neutrophils # 11.4 K/mm3 (1.8-7.7) H 11/16/19 05:39 PT 13.2 Sec. (12.2-14.9) 11/16/19 05:39 INR 0.98 (0.87-1.13) 11/16/19 05:39 D-Dimer 189.39 ng/mlDDU (0-234) 11/15/19 14:46 ABG pH 7.375 pH Units (7.350-7.450) 11/15/19 10:35 ABG pCO2 45.7 mm Hg 11/15/19 10:35 ABG pO2 67.8 mm Hg (80.0-90.0) L 11/15/19 10:35 ABG HCO3 26.1 mmol/L (20.0-26.0) H 11/15/19 10:35 ABG O2 Saturation 94.0 % (95.0-99.0) L 11/15/19 10:35 ABG O2 Content 19.2 (0.0-44) 11/15/19 10:35 ABG Base Excess 0.5 mmol/L (-2.0-3.0) 11/15/19 10:35 ABG Hemoglobin 14.8 gm/dl (12.0-16.0) 11/15/19 10:35 ABG Carboxyhemoglobin 1.1 % (0.0-5.0) 11/15/19 10:35 ABG Methemoglobin 0.5 % (0.0-1.5) 11/15/19 10:35 Oxyhemoglobin 92.5 % (95.0-99.0) L 11/15/19 10:35 FiO2 50 % 11/15/19 10:35 Sodium 137 mmol/L (137-145) 11/16/19 05:39 Potassium 5.0 mmol/L (3.6-5.0) D 11/16/19 05:39 Chloride 100.8 mmol/L (98-107) 11/16/19 05:39 Carbon Dioxide 24 mmol/L (22-30) 11/16/19 05:39 Anion Gap 17 mmol/L 11/16/19 05:39 BUN 19 mg/dL (7-17) H 11/16/19 05:39 Creatinine 0.8 mg/dL (0.6-1.2) 11/16/19 05:39 Estimated GFR > 60 ml/min 11/16/19 05:39 BUN/Creatinine Ratio 24 % 11/16/19 05:39 Glucose 154 mg/dL (65-100) H 11/16/19 05:39 POC Glucose 115 (70-105) H 11/17/19 07:38 Calcium 9.7 mg/dL (8.4-10.2) 11/16/19 05:39 Troponin T < 0.010 ng/mL (0.00-0.029) 11/15/19 00:05 NT-Pro-B Natriuret Pep 136.3 pg/mL (0-900) 11/15/19 00:05 Microbiology: Microbiology 11/15/19 00:05 Peripheral/Venous Blood Culture - Preliminary NO GROWTH AFTER 48 HOURS 11/14/19 23:54 Peripheral/Venous Blood Culture - Preliminary NO GROWTH AFTER 48 HOURS Rodríguez/IV: Voiding Method Toilet IV Catheter Type [Left Wrist] INT / Saline Lock Active Medications - Current Medications Current Medications: Generic Name Dose Route Start Last Admin Trade Name Freq PRN Reason Stop Dose Admin Acetaminophen 650 mg 11/15/19 02:58 Tylenol PO Q4H PRN Pain MILD(1-3)/Fever >100.5/BLAKE Albuterol/Ipratropium 1 ampul 11/16/19 16:00 11/17/19 08:04 Duoneb *Not For Prn Use* IH 1 ampul QIDRT FREDDY Administration Arformoterol Tartrate 15 mcg 11/16/19 21:12 11/17/19 08:07 Brovana Nebu IH 15 mcg Q12HRT FREDDY Administration Benzonatate 100 mg 11/15/19 14:00 11/17/19 05:10 Tessalon Perles PO 100 mg Q8HR FREDDY Administration Budesonide 0.5 mg 11/16/19 21:15 11/17/19 08:04 Pulmicort IH 0.5 mg Q12HRT FREDDY Administration Dextrose 0 ml 11/15/19 02:58 D50w (25gm) Syringe IV Q30MIN PRN Hypoglycemia Protocol Enoxaparin Sodium 40 mg 11/15/19 22:00 11/16/19 21:20 Enoxaparin SUB-Q 40 mg QDAY@2200 FREDDY Administration Protocol Insulin Human Lispro 0 unit 11/15/19 07:30 11/17/19 09:32 Humalog SUB-Q Not Given ACHS [facility] Protocol Magnesium Hydroxide 30 ml 11/15/19 02:58 Milk Of Magnesia PO Q4H PRN Constipation Methylprednisolone Sodium Succinate 40 mg 11/15/19 06:00 11/17/19 05:10 Solu-Medrol IV 40 mg Q8HR FREDDY Administration Ondansetron HCl 4 mg 11/15/19 02:58 Zofran IV Q8H PRN Nausea And Vomiting Sodium Chloride 10 ml 11/15/19 10:00 11/16/19 21:21 Sodium Chloride Flush Syringe 10 Ml IV 10 ml BID FREDDY Administration Sodium Chloride 10 ml 11/15/19 02:58 Sodium Chloride Flush Syringe 10 Ml IV PRN PRN LINE FLUSH Nutrition/Malnutrition Assess - Dietary Evaluation Nutrition/Malnutrition Findings: Nutrition Notes Start: 11/15/19 10:36 Freq: Status: Active Protocol: Document 11/15/19 10:36 LM (Rec: 11/15/19 10:36 LM [id number]) Nutrition Notes Need for Assessment generated from: MD Order Initial or Follow up Brief Note Subjective/Other Information MD consult for diet education. Pt in ED. Nutrition Intervention Follow-Up By: 11/17/19 Additional Comments F/U for diet education
[2019-11-17] MEDS: ENOXAPARIN 40 MG/0.4 ML INJ SUB-Q SCH (21:49)
[2019-11-18] MEDS: methylPREDNISolone Sod Succinate 40 MG/1 ML INJ IV SCH ×2 (05:30→13:14)
[2019-11-18] MEDS: BENZONATATE 100 MG CAP PO SCH ×2 (05:30→13:15)
[2019-11-18] MEDS: BUDESONIDE 0.5 MG/2 ML NEBU IH SCH ×2 (08:16→21:23)
[2019-11-18] MEDS: IPRATROPIUM/ALBUTEROL SULFATE 3 ML AMPUL.NEB IH SCH ×4 (08:16→21:22)
[2019-11-18] MEDS: ARFORMOTEROL 15 MCG/2 ML NEBU IH SCH ×2 (08:16→21:23)
[2019-11-18] MEDS: INSULIN LISPRO 100 UNIT/ML VIAL 3 mL SUB-Q SCH ×3 (08:58→16:35)
--- NOTE | 2019-11-18 08:58 | XRay Report ---
CHEST 1 VIEW INDICATION / CLINICAL INFORMATION: Hypoxia. COMPARISON: 11/15/2019 FINDINGS: SUPPORT DEVICES: None. HEART / MEDIASTINUM: No significant abnormality. LUNGS / PLEURA: No significant pulmonary or pleural abnormality.. No pneumothorax. ADDITIONAL FINDINGS: No significant additional findings. IMPRESSION: 1. No significant change. Signer Name: Leon Olson MD Signed: 11/18/2019 8:53 AM Workstation Name: [id number]
[2019-11-18] MEDS ORDERED: amLODIPine 10 MG TAB PO SCH (11:00)
--- NOTE | 2019-11-18 11:20 | Discharge Summary ---
Providers - Providers Date of Admission: 11/15/19 01:57 Date of discharge: 11/18/19 Attending physician: LU DUNHAM 11/15/19 03:01 Consult to Dietitian/Nutrition [CONS] Routine Physician Instructions: Reason For Exam: Reason for Consult: Diet education Primary care physician: [employer]IVER Hospitalization Condition: Fair Hospital course: 54-year-old female with known history of COPD, hypertension, diabetes mellitus and CHF presented to the emergency room today complaining of shortness of breath. She has also had some cough productive of some clear sputum. She denies any fever or chills, no chest pain, no headache or dizziness, no nausea or vomiting and no diarrhea. She denies any sick contacts and no recent travel. She denies any contact with anyone with COVID-19. Upon arrival in the emergency room she was found to be hypoxic with oxygen saturation in the 80s on room air she was subsequently placed on BiPAP. Patient was given some nebulizer treatments, Solu-Medrol and magnesium with some improvement. 11/17. She has been completely treated and still hypoxic with ambulation. She has a history of COPD. She will need oxygen as she ambulated and oxygen dropped to 86-87%. She will follow up with pulmonology in the office. Disposition: TO HOME OR SELFCARE - Discharge Diagnoses (1) Acute hypoxemic respiratory failure Status: Acute (2) COPD exacerbation Status: Acute Core Measure Documentation - Palliative Care Palliative Care/ Comfort Measures: Not Applicable - Core Measures Any of the following diagnoses?: none Exam - Constitutional Vitals: Temp Pulse Resp BP Pulse Ox 98.0 F 95 H 18 165/104 95 11/18/19 08:31 11/18/19 11:05 11/18/19 08:31 11/18/19 11:05 11/18/19 08:31 General appearance: Present: no acute distress, well-nourished - EENT Eyes: Present: PERRL ENT: hearing intact, clear oral mucosa - Neck Neck: Present: supple, normal ROM - Respiratory Respiratory effort: normal Respiratory: bilateral: CTA - Cardiovascular Heart Sounds: Present: S1 & S2. Absent: rub, click - Extremities Extremities: pulses symmetrical, No edema Peripheral Pulses: within normal limits - Abdominal General gastrointestinal: Present: soft, non-tender, non-distended, normal bowel sounds Female genitourinary: Present: normal - Integumentary Integumentary: Present: clear, warm, dry - Musculoskeletal Musculoskeletal: gait normal, strength equal bilaterally - Psychiatric Psychiatric: appropriate mood/affect, intact judgment & insight - Neurologic Neurologic: CNII-XII intact, moves all extremities Plan Diet: low cholesterol, low salt Durable Medical Equipment Needed Upon Discharge: Oxygen Additional Instructions: Continue prednisone for 5 days. Follow up with pulmonology in the office for PFTs, 6 minute walk test. Continue blood pressure medications as ordered Follow up with: PRIMARY CARE, [Primary Care Provider] - 7 Days RENITA CONKLIN MD [Staff Physician] - 7 Days Prescriptions: predniSONE [Deltasone] 40 mg PO QDAY #10 tab Budesonide/Formoterol Fumarate [Symbicort 160-4.5 Mcg Inhaler] 2 puff IH BID #1 hfa.aer.ad Benzonatate [Tessalon Perles] 100 mg PO Q8HR #6 capsule
[2019-11-18] MEDS ORDERED: hydrALAZINE 25 MG TAB PO SCH (14:00)
[2019-11-18 17:50] VITALS: BP 150/96
== END 2019-11-18 18:00 | disposition left against medical advice (07) | DRG 189 ==
LOC: ED 23:17 → IMCU 11-15 01:57 → 4A 11-15 22:54
PROVIDERS: ADMIT Internal Medicine Geriatric Medicine; ATTEND Internal Medicine
PROC: 4A033R1 Measurement of Arterial Saturation, Peripheral, Percutaneous Approach (ICD-10-PCS; principal; 2019-11-15)
PROC: 5A09357 Assistance with Respiratory Ventilation, Less than 24 Consecutive Hours, Continuous Positive Airway Pressure (ICD-10-PCS; 2019-11-15)
DX: J96.01 Acute respiratory failure with hypoxia (principal); J44.1 Chronic obstructive pulmonary disease with (acute) exacerbation; J45.901 Unspecified asthma with (acute) exacerbation; I11.0 Hypertensive heart disease with heart failure; I50.9 Heart failure, unspecified; E11.9 Type 2 diabetes mellitus without complications; Z87.891 Personal history of nicotine dependence; Z79.899 Other long term (current) drug therapy; Z79.01 Long term (current) use of anticoagulants; Z88.8 Allergy status to other drugs, medicaments and biological substances; Z53.29 Procedure and treatment not carried out because of patient's decision for other reasons; Z79.84 Long term (current) use of oral hypoglycemic drugs
CPT/HCPCS: 36415; 36600; 71045; 80048; 82803; 82962; 83880; 84484; 85025; 85379; 85610; 87040; 93005; 94640; 94644; 94760; G0378; J1650; J2920; J2930; J3475